=== PATIENT | male | born 1950 | race Caucasian/White ===

== ENCOUNTER 2023-09-23 10:54 | Inpatient (IN) | payer MEDICARE, OTHER, SELFPAY ==
[2023-09-23] VITALS (15 sets, daily range): BP systolic 137–192; BP diastolic 77–98; BMI 26.3
--- NOTE | 2023-09-23 09:30 | ED.GENMED ---
History of Present Illness
General
Chief Complaint: Chest Pain
Source: patient and spouse
Exam Limitations: none
Time Seen by Provider: 09/23/23 09:23
Nursing documentation reviewed up to this point in time: agreed with
Travel History
Have you had any contact with someone who has COVID-19?: No
Do you have any symptoms of coronavirus? Fever > 100 degrees, chills, cough, shortness of breath, sore throat, loss of taste or smell, muscle aches, or headache?: No
History of Present Illness
History of Present Illness:
73-year-old male presents emergency department due to chest pain that began about 6:30 AM. He just drank coffee. He has a history of borderline elevated creatinine. He has never had a heart attack. He does not smoke or drink alcohol. He still
having mild pain. STEMI alert called upon reviewing his EKG.
Past History
Past History
ED Past Medical History: HTN and Other (left ear tinnitus, hyponatremia, Pancreatitis, internal hemorrhoid); Negative CAD or Hypercholesterolemia
ED Past Surgical History: Other (Hernia repair)
Social History
Tobacco: Non-smoker
Alcohol: None
Personal:
Living: with family
Employment: Employed
Family History
Family History: Hypertension; Negative Diabetes, CAD or Sudden
Review of Systems
Review of Systems
Allergies reviewed?: Yes
Constitutional: Reports no symptoms; Denies fever
EENT: Reports no symptoms
Respiratory: Reports no symptoms
Cardiac: Reports chest pain
ABD/GI: Reports no symptoms
: Reports no symptoms
Musculoskeletal: Reports no symptoms
Skin: Reports no symptoms
Neurological: Reports no symptoms
Endocrine: Reports no symptoms
Hematologic/Lymphatic: Reports no symptoms
Psychiatric: Reports no symptoms
Phy Exam
Physical Exam
Physical Exam:
Physical Exam
General: Afebrile
Neck: supple. no meningeal signs. normal posterior pharynx
Heart: s1/s2 regular rate and rhythm, no murmur. equal radial
pulses.
HEENT: Pupils equal round reactive to light, EOMI
Lungs: no acute respiratory distress. clear bilaterally
Abdomen: normal bowel sounds. not tender. no CVAT
Neuro: alert and oriented. no focal neurological deficits cranial nerves II through XII intact
Skin: no rash
Psychiatric: well kept. interactive and cooperative
Extremities: no edema. no calf tenderness. negative homans. good distal pulses
Scores
Heart Score for Chest Pain Patients
STEMI patient?: Yes
Course
Orders/Labs/Results
Orders:
Orders
09/23/23 09:12
Electrocardiogram (*1) Urgent
Reason for Study: Chest Pain
CMP [Comprehensive Metabolic Panel] Urgent
Complete Blood Count/With Diff Urgent
Troponin I Urgent
09/23/23 09:13
EKG- Treatment ONCE
Vital Signs
Initial and Last Documented VS:
Initial Vital Signs
Temp Pulse Resp BP Pulse Ox
97.4 F 49 18 192/88 100
09/23/23 09:07 09/23/23 09:07 09/23/23 09:07 09/23/23 09:07 09/23/23 09:07
Last Documented Vital Signs
Temp Pulse Resp BP Pulse Ox
97.4 F 49 18 192/88 100
09/23/23 09:07 09/23/23 09:07 09/23/23 09:07 09/23/23 09:07 09/23/23 09:07
MDM/Problems Addressed
Differential Diagnosis Includes:
STEMI, scad
MDM/Problems Addressed:
73-year-old male with STEMI. Discussed with Dr. Crain, who accepts patient to [facility] for cardiac catheterization emergently. Aspirin, Brilinta and heparin given.
Chronic conditions affecting care: HTN and Kidney disease
Acute Exacerbation and/or Progression of Chronic Illness: HTN
*Pulse Oximetry
Patient hypoxic: no
*EKG
Interpreted by ED Provider?: Yes
EKG Intrepretation Date: 09/23/23
EKG Intrepretation Time: 09:21
Interpretation: abnormal
Comparison EKG: no comparison EKG present
Heart Rate: 56
Rate: bradycardiac
Rhythm: sinus
[place]: normal axis
Interval: normal interval
QRS Pattern: normal QRS
Ischemia: ST elevation
*Home Appliance Tech Interpretation
Rate: bradycardiac
Interpretation: abnormal
Heart Rate: 57
Rhythm: sinus
*Critical Care Note
Total Time (30-74mins, 75-104mins- exclusive of procedures): Not Applicable
Data Reviewed
Review of Other/Old Records Reveals: Labs
Source: records (Prior creatinine 0.8 on 08/21/2016, 0.9 on 01/01/2018)
Patient Management
Social determinants of health affecting care: Living situation and Strong social support
Discussion with other providers: Reading Intervention Teacher (head boys golf coach Dr. Antony)
Escalation/DeEscalation of care consider admission/obs:
Admit to [facility] indicated emergently
ED Attending Note
-
Portions of this chart may have been created with voice recognition software.� Occasional wrong word or��sound alike� substitutions may have occurred due to the inherent limitations of voice recognition software.
Discharge Plan
Departure
Patient Disposition: VULNERABILITY RESEARCHER
Date of Disposition: 09/23/23
Time of Disposition: 09:30
Admit to: [facility]
Presentation/result/management discussed w/ accepting MD/DO: cardiology Dr. Antony
Patient with high blood pressure during this ER visit?: Yes
Condition: Good
Discharge Problem:
ST elevation (STEMI) myocardial infarction
Prescriptions:
No Action
metoprolol succinate 25 MG tablet extended release 24 hr
25 mg PO DAILY
clonazepam 0.5 MG tablet
0.25 mg PO TIDPRN PRN (Reason: anxiety)
eplerenone 50 MG tablet
50 mg PO DAILY
amlodipine 10 MG tablet
5 mg PO DAILY
--- NOTE | 2023-09-23 09:45 | HPS.HSE ---
Addendum entered and electronically signed by Jarvis Antony MD 09/23/23 17:43:
73 yo with acute inferior STEMI x 2 hrs
HD stable on presentation. No sign of acute CHF
emergent cath and RCA PCI
Routine post [place] care planned
Need to determine cost of Brilinta- if too expensive Plavix should be used instead
Dr Alvarez is outpt lead fire protection engineer
Original Note:
Family Physician
-
Family Physician: Sabine Luu MD
Chief Complaint
-
Inferior STEMI
History of Present Illness
73 yo WM h/o uncontrolled HTN since age [address] Ritter, Hyperaldosteronism, chronic hyponatremia, gout, Anxiety with panic attacks, medical noncompliance who has been having severe fatigue since July, thyroid testing was normal. He
developed acute chest pain around 7:30am today, he thought it was reflux but the pain continued and he presented to ER. His EKG in ER with inferior ST elevations. He was given ASA, Brilinta, Heparin and brought urgently to the lab analyst. He had 6/10
chest pain on arrival to the lab.
Medical History
Past Medical History
Past Medical History: Reports HTN and Psychiatric (Anxiety with panic attacks, Depression)
Additional Past Medical History:
pancreatitis 2015, Lumbar disc disease, gout, Hyperaldosteronism, hyperkalemia, Vitamin D deficiency, thiazide induced Hyponatremia, Liver cyst, L Carotid stenosis, deviated nasal septum, hemorrhoids, anal fissure, trigger finger, Tinnitus
Past Surgical History: Reports Other (hernia repair Right 2003)
Social History
Tobacco: Non-smoker
Alcohol: Occasional
Drug: None
Personal:
Living: With Family
Employment: Employed (Works PT at [employer], previously in [employer])
Family History
Family History: Cancer (Pancreatic, breast)
Allergies / Home Medications
Allergies reflects when Allergies were last updated in [employer].
Home Medications with original date entered in [facility] [facility]
Allergy/Medication List:
Allergies
Allergy/AdvReac Type Severity Reaction Status Date / Time
hydrochlorothiazide Allergy sodium Verified 01/01/18 16:37
depletion
Medication Instructions Recorded Confirmed Type
clonazepam 0.5 mg tablet 0.25 mg PO TIDPRN PRN anxiety 10/20/15 09/23/23 History
furosemide 20 mg tablet (Lasix) 20 mg PO DAILY PRN hyperkalemia 09/23/23 09/23/23 History
magnesium glycinate 100 mg tablet 100 mg PO DAILY 09/23/23 09/23/23 History
spironolactone 25 mg tablet 25 mg PO DAILY 09/23/23 09/23/23 History
Review of Systems
-
A 12 point ROS was completed and negative except as noted: Yes
Cardiac: Reports Chest Pain (12/14)
Physical Exam
Vital Signs
Vital Signs
Temp Pulse Resp BP Pulse Ox
97.4 F 49 18 192/88 100
09/23/23 09:07 09/23/23 09:07 09/23/23 09:07 09/23/23 09:07 09/23/23 09:07
Physical Exam
General: Pain (deferred as being prepped and draped on cath table for urgent procedure)
Impression/Plan
-
IMPRESSION:
Acute inferior STEMI
uncontrolled HTN since age 41, managed by Nephrology
chronic Thiazide induced hyponatremia
Anxiety with panic attacks follow with psychiatry
Depression
Hyperkalemia on spironolactone
Gout
LDD
Hyperaldosteronism
Vitamin D Deficiency
Pancreatitis 2015
ED
history of Medical noncompliance
PLAN:
Admit IVU post cath, PCI occluded distal RCA, and PDA POBA
Radial band per protocol
first troponin neg, serial to peak
Check Echo in am
DAPT ASA/Brilinta (CM to eval cost)
? allergy to BB, HR in 50's currently will hold off for now
white coat syndrome HTN, continue spironolactone and lasix
chronic Hyponatremia Na+ 128, continue to trend, if worsens c/s Nephrology, fluid restrict 48 oz/day
Check CVE, start high intensity statin
Cardiac rehab c/s
f/u DCA at d/c
continue to monitor 48 hours on tele
--- NOTE | 2023-09-23 09:46 | ITS.CL.CATH ---
Ticket Collector Or Usher - Catheterization
Cardiac Catheterization
Procedure Report:
CARDIAC CATHETERIZATION REPORT
Date of Procedure: 09/23/2023
Referring: Dr. Kaykay DO
Indication: Inferior STEMI x 2 hours
HEMODYNAMIC DATA
AO: 168/77
LV: 168/20
LEFT VENTRICULOGRAPHY: Focal area of severe mid inferior hypokinesis with EF 64%
CORONARY ANGIOGRAPHY
Dominance: Right
Left Main: Normal
LAD: 30% mid LAD stenosis with otherwise trivial luminal irregularities in the LAD proper. The LAD wraps the apex to supply a significant portion of the distal inferior wall. The very large first diagonal branch has 30-40% ostial/proximal
stenosis. The small to medium sized second diagonal branch has 80% proximal stenosis. This is a small caliber (1.5) mm vessel
Circumflex: There is a very large ramus intermedius with trivial luminal irregularities. The proximal and mid circumflex have no significant obstructive disease. OM1 is small. The circumflex terminates with two medium sized left posterolateral
branches and there is 40-50% distal circumflex stenosis just proximal to the takeoff of the first of these left posterolateral branches
RCA: Dominant vessel with 20% proximal stenosis and total occlusion in the distal RCA just past the crux. There is JASON grade 0 flow distal to the occlusion site.
Angioplasty: At the conclusion of the diagnostic study we proceeded with RCA intervention. Heparin was used for anticoagulation. Since this patient was not taking any antiplatelet therapy as an outpatient, we treated him with double bolus
Integrilin without infusion. Brilinta 180 mg and aspirin 324 mg were given in the emergency department. A 6 Japanese JR4 guide was advanced to the right coronary ostium. A Hi-Torque floppy was successfully passed through the occlusion in the distal
RCA into the posterolateral branch. This restored flow and we were able to identify the lesion. An attempt to place a 3.0 x 15 Xience SERGIO was unsuccessful as it would not cross the occlusion. The stent was carefully removed and replaced with a
2.5 x 12 trek balloon which was dilated to 8 rylee. This restored normal distal flow. We then placed the 3.0 x 15 Xience SERGIO which was deployed at 14 rylee then postdilated with a 3.0 NC trek to 17 rylee. The angiographic result was outstanding with
scientology of JASON grade III flow into the PDA and posterolateral branch and no residual stenosis at the site of occlusion. A cranially angulated view to lay out the PDA and right posterolateral branch demonstrated high-grade disease in the
midportion of the RPDA. We were unable to advance the Hi-Torque floppy across this lesion. We then passed a hydrophilic whisper wire into the PDA and it appeared that we were able to get through the lesion but not into the distal vessel but rather
into a septal accounts receivable bookkeeper just distal to the lesion site. Numerous passes were made with this wire which continued to select the septal branch of the PDA. We then left the wire in the septal branch of the PDA and advanced a Fielder XT wire which
also preferred the same branch although it was also possible to place this into a more proximal medial branch of the RPDA. This medial branch was certainly not across the entirety of the stenosis and was not an acceptable place to leave the wire
for PTCA. Ultimately, we decided to dilate with a 2.0 x 12 trek balloon hoping that this modified the entry into the distal RPDA. A single balloon inflation was accomplished to 8 rylee. There was angiographic improvement in the appearance of the
stenosis; however, this did not allow us to get the Fielder XT wire nor the whisper wire into the distal RPDA. At this point we opted to terminate the procedure rather than continue to try to get a wire into the distal PDA. There was good distal
flow into the PDA following the angioplasty procedure. Of note, the patient became pain-free once the infarct lesion in the distal RCA was treated.
Closure Device: None-the procedure was performed via the right radial artery. The Irwin's test was normal prior to the procedure.
Radiation (mGy): 160
DAP (cm2.Gy): 18.5
Fluoroscopy time: 7.1 minutes
CONCLUSIONS
1: Evolving inferior STEMI of about 2 hours duration
2: Focal mid inferior hypokinesis with EF 64%
3. Multivessel CAD as described
4. Successful stenting of the culprit distal RCA occlusion using a 3.0 x 15 Xience SERGIO. We performed angioplasty of the mid PDA with some angiographic improvement but no ability to stent the lesion as we were unable to cleanly wire the distal PDA.
5. Recommend dual antiplatelet therapy for 12 months and aggressive risk factor modification efforts
6. Recommend medical treatment for the residual CAD
Copy to: Haseeb Alvarez MD, Sabine Luu MD
Jarvis Antony MD, [facility], [facility]
[2023-09-23 09:48] LABS: % Basophils 0.9 % (0-2); % Eosinophils 3.3 % (0-6); % Immature Granulocytes 0.5 % (0-0.5); % Lymphocytes 25.2 % (20.5-51.1); % Monocytes 11.4 % (1.7-9.3); % Neutrophils 58.7 % (42.2-75.2); Absolute Basophils 0.1 10^3/uL (0-0.2); Absolute Eosinophils 0.2 10^3/uL (0-0.7); Absolute Lymphocytes 1.4 10^3/uL (1.2-3.4); Absolute Monocytes 0.7 10^3/uL (0.1-0.6); Absolute Neutrophils 3.4 10^3/uL (1.4-6.5); Hematocrit 40.5 % (39.0-52.0); Hemoglobin 14.9 g/dL (13.0-18.0); Mean Corp Hgb Conc. 36.8 g/dL (33.0-37.0); Mean Corpuscular Hgb 31.6 pg (27.0-31.0); Mean Corpuscular Volume 85.8 fL (80.0-94.0); Mean Platelet Volume 8.9 fL (7.4-10.4); Nucleated Red Blood Cells % 0 % (-); Platelet Count 162 10^3/uL (130-400); Red Blood Cell Count 4.72 10^6/uL (4.70-6.10); Red Cell Dist. Width 12.5 % (11.5-14.5); White Blood Cell Count 5.7 10^3/uL (4.8-10.8)
[2023-09-23 09:55] LABS: INR 1.07; PT 13.7 Sec (11.4-14.6)
--- NOTE | 2023-09-23 09:56 | PTCARENOTE ---
patient brought to critical room in wheelchair from triage for chest pain that started this AM when patient awoke, approximately 0730 per patient.
EKG done and showed STEMI which read and confirmed by ER doctor. RN Allyson and Ladonna assisted patient at bedside with help from biodiesel processing technician. Teresa and Camila. Aspirin, Brilinta, and heparin given, please refer to yellow STEMI sheet. Patient transferred to
ballistics laboratory gunsmith by this KEYA and Teresa with security and at bedside. Patient was AAOx3 during transfer and handoff to ballistics laboratory gunsmith.
[2023-09-23 09:58] LABS: ACT-LR - POC 271 Seconds (116-155)
[2023-09-23 09:59] LABS: ALT (SGPT) 22 U/L (0-50); AST (SGOT) 30 U/L (17-59); Albumin 4.3 g/dl (3.5-5.0); Alkaline Phosphatase 82 U/L (38-126); Blood Urea Nitrogen 28 mg/dl (9-20); Calcium 9.3 mg/dl (8.4-10.2); Carbon Dioxide 23 mmol/L (22-30); Chloride 98 mmol/L (98-107); Estimated Creatinine Clearance 47 ml/min; Glucose 143 mg/dl (70-99); Potassium 4.6 mmol/L (3.5-5.1); Sodium 128 mmol/L (135-145); Total Bilirubin 0.7 mg/dl (0.2-1.3); Total Protein 6.7 g/dl (6.3-8.2); eGFR > 60.00
[2023-09-23 10:17] LABS: Troponin I < 0.012 ng/ml
[2023-09-23 10:26] LABS: ACT-LR - POC 326 Seconds (116-155)
[2023-09-23] MEDS: NSS 1000 IV (11:55)
--- NOTE | 2023-09-23 13:02 | PTCARENOTE ---
Received pt from recyclable products sorter. Pt w/ a radial R band w/ 17 ml of air initially. senior label specialist RN removed a total of 5ml of air due to pt's hand being dusky. A proximal R band w/ 15 ml of air was placed in the recyclable products sorter due to a hematoma. VSS. Pt w/ +2 left
radial pulse. Pt' left hand purple and dusky. Pulse ox 98% on left finger. Pt w/o discomfort. Will monitor.
--- NOTE | 2023-09-23 13:21 | CM ---
spoke to pt in room, he is prev indep, lives with his laney 3 story home with 1 step to enter. he denies any dc planning needs or dme's. plan is for dc to home when medically stable.
--- NOTE | 2023-09-23 14:47 | CM ---
hamzah grant at pts [facility]- his copay is $47/month. [address] pts red dc folder.
--- NOTE | 2023-09-23 16:00 | W.CON.NEPH ---
Consultation
-
Date/Time Consultation Performed: 09/22 5:01PM
Performing Provider: Liudmila Reynolds
Reason for Consultation: hyponatremia
Medical History
-
Chief Complaint: hyponatremia
History of Present Illness:
Mr. Hernández is a 73YOM with PMH of hypertension, anxiety, obesity, thiazide induced hyponatremia, chronic hyponatremia, gout who presents to the hospital for acute chest pain, found to have an inferior STEMI and brought urgently to the cardiac cath lab technologist.
The patient had PCI to occluded distal RCA and is now admitted to the IVU post cardiac cath.
Reviewing his sodium trends, 134 (2022) <-- 131 (2021). It seems he has always run in the low 130s.Nephrology is consulted today due to a drop in Na to 128. Denies significant changes to water intake. Takes spironolactone and lasix without a
specific regimen. States BP rises with anxiety, otherwise well controlled. has significant white coat hypertension.
Feels significantly improved after cardiac cath.
Per outpatient nephrology note: he developed hyponatremia with chlorthalidone so that has been avoided. Hyponatremia remains persistent, although mild and he has not recieved a thiazide diuretic in quite some time. Daily fluid intake does not exceed
48oz by his report, no obvious factitious component to the hyponatremia was preciously identified. It was thought that spironolactone was impairing renal free water excretion. Most recently, Dr. Ritter did increase his spironolactone to 25mg
daily.
Past Medical History
Anxiety
Depression
HTN (mineralocorticoid component)
chronic hyponatremia
gout
pancreatitis
liver cyst
Past Surgical History: Other (hernia repair 2003)
Social History
Tobacco: Non-Smoker
Alcohol: Occasional
Drug: None
Personal:
Living: With Family
Employment: Employed (works at [employer])
Family History
Family History: Not Pertinent
Allergies / Home Medications
Allergy/AdvReac Type Severity Reaction Status Date / Time
hydrochlorothiazide Allergy sodium Verified 01/01/18 16:37
depletion
Medication Instructions Recorded Confirmed Type
clonazepam 0.5 mg tablet 0.25 mg PO TIDPRN PRN anxiety 10/20/15 09/23/23 History
furosemide 20 mg tablet (Lasix) 20 mg PO DAILY PRN hyperkalemia 09/23/23 09/23/23 History
magnesium glycinate 100 mg tablet 100 mg PO DAILY 09/23/23 09/23/23 History
spironolactone 25 mg tablet 25 mg PO DAILY 09/23/23 09/23/23 History
Review of Systems
-
History Source: Patient and Family
All other systems: Negative unless noted
Constitutional: Fatigue (improved after cath)
Cardiac: Chest Pain (resolved)
Physical Exam
Vital Signs
Vital Signs
Temp Pulse Resp BP Pulse Ox
97.8 F 56 18 151/79 100
09/23/23 15:00 09/23/23 15:00 09/23/23 15:00 09/23/23 12:00 09/23/23 15:00
Lab Results
WBC 5.7 10^3/uL (4.8-10.8) 09/23/23 09:31
RBC 4.72 10^6/uL (4.70-6.10) 09/23/23 09:31
Hgb 14.9 g/dL (13.0-18.0) 09/23/23 09:31
Hct 40.5 % (39.0-52.0) 09/23/23 09:31
Plt Count 162 10^3/uL (130-400) 09/23/23 09:31
Sodium 128 mmol/L (135-145) L 09/23/23 09:31
Potassium 4.6 mmol/L (3.5-5.1) 09/23/23 09:31
Chloride 98 mmol/L (98-107) 09/23/23 09:31
Carbon Dioxide 23 mmol/L (22-30) 09/23/23 09:31
BUN 28 mg/dl (9-20) H 09/23/23 09:31
Creatinine 1.2 mg/dL (0.7-1.3) 09/23/23 09:31
eGFR > 60.00 09/23/23 09:31
Glucose 143 mg/dl (70-99) H 09/23/23 09:31
Calcium 9.3 mg/dl (8.4-10.2) 09/23/23 09:
Albumin 4.3 g/dl (3.5-5.0) 09/23/23 09:
Physical Exam
General: AOx3, No Distress and Nontoxic
HEENT: PERRL, EOMI, Anicteric, Conjunctivae Clear, Ear/Nose Intact, Hearing Normal, Dentition Intact and Neck Supple
Respiratory: Clear
Cardiac: S1/S2, Regular Rate/Rhythm and No Edema
Breast: N/A
Abdomen: Soft, Nontender, Nondistended and Normal Bowel Sounds
Rectal: Deferred by Provider
Musculoskeletal: No Clubbing, No Cyanosis and No Edema
Skin: No Rash
Neuro: Nonfocal/Grossly Intact
Psych: Mood/afflect pleasant and Insight/judgement good
Assessment/Plan
-
Assessment:
STEMI s/p PCI
uncontrolled HTN
acute on chronic hyponatremia
anxiety
depression
Hyperaldo
pancreatitis
Plan:
most likely in the setting of free water excretion impairment, worsened in the acute setting
patient not 100% compliant with spironolactone and lasix but overall endorsing good BP control
has an element of white coat hypertension and very sensitive to anxiety
kidney function stable
obtain Uosm/Natalia
free water restrict to <40oz/day
if Na not >130 by tomorrow, consider SAMSCA vs. lasix pending kidney function after contrast
Data Reviewed
-
Medical Tests (Nuc Med, Echo etc): Image Personally Visualized and interpreted (EKG with ST elevation in inferior leads and then subsequent resolution after cath)
Labs: Labs Reviewed by me and Discussed with Patient
Old Records: Reviewed
[2023-09-23] MEDS: LIPITOR 40 MG PO (18:12)
[2023-09-23] MEDS: LOVENOX SC ×2 (18:25→18:29)
[2023-09-23 18:58] LABS: Osmolality Urine 436 mOsm/kg (300-900)
[2023-09-23 19:06] LABS: Urine Sodium 71 mmol/L (30-90)
[2023-09-23] MEDS: BRILINTA 90 MG PO (19:28)
[2023-09-23] MEDS: TYLENOL 650 MG PO (19:28)
--- NOTE | 2023-09-23 21:33 | PTCARENOTE ---
Pt received at start of shift, HR SB/SR 50s-70s. Reinforced purpose of amiodarone with pt. Discussed plan of care and NPO at 0000. Pt states no questions at this time. Pt denies any CP that's radiating or changing in intensity/feeling, SOB, or
lightheadedness/dizziness at this time. Informed pt to notify RN if any changes, call jackson within reach.
Pt c/o sternum pain 8/10. 5mg Dolores PRN administered.
[2023-09-23] MEDS: KLONOPIN 0.25 MG PO (22:26)
--- NOTE | 2023-09-23 23:29 | PTCARENOTE ---
Pt received at start of shift, HR SB/SR 50s-70s. R radial dressing CDI, no hematoma, site ecchymotic. Pt c/o chest pressure 3 /10, tylenol administered, 2/10 new pain rating. Pt states feeling very anxious, pt noted to be pacing in room. PRN
Klonopin administered. Education provided on what a STEMI is, Lovenox vs Brilinta purposes, troponin, purpose of statin drugs post RI, and modifiable vs. non-modifiable risk factors related to CAD. Pt states no further questions at this time. Pt
denies worsening CP, SOB, or lightheadedness/dizziness at this time. Informed pt to notify RN if any changes, call jackson within reach.
[2023-09-24] VITALS (13 sets, daily range): BP systolic 139–182; BP diastolic 78–101; BMI 25.3
[2023-09-24 04:04] LABS: Hematocrit 37.9 % (39.0-52.0); Mean Corp Hgb Conc. 36.9 g/dL (33.0-37.0); Mean Corpuscular Hgb 31.5 pg (27.0-31.0); Mean Corpuscular Volume 85.4 fL (80.0-94.0); Mean Platelet Volume 8.7 fL (7.4-10.4); Platelet Count 143 10^3/uL (130-400); Red Blood Cell Count 4.44 10^6/uL (4.70-6.10); Red Cell Dist. Width 12.4 % (11.5-14.5); White Blood Cell Count 7.7 10^3/uL (4.8-10.8)
[2023-09-24 04:26] LABS: Blood Urea Nitrogen 28 mg/dl (9-20); Calcium 9.2 mg/dl (8.4-10.2); Carbon Dioxide 21 mmol/L (22-30); Chloride 100 mmol/L (98-107); Estimated Creatinine Clearance 51 ml/min; Glucose 97 mg/dl (70-99); HDL Cholesterol 47 mg/dl; LDL Cholesterol, Calculated 53 mg/dl; Potassium 4.2 mmol/L (3.5-5.1); Sodium 129 mmol/L (135-145); Total Cholesterol 116 mg/dl (50-199); Triglyceride 82 mg/dl (10-149); Very Low Density Lipoprotein 16 mg/dl (0-30); eGFR > 60.00
[2023-09-24] MEDS: BRILINTA 90 MG PO ×2 (07:43→20:21)
[2023-09-24] MEDS: ALDACTONE 25 MG PO (07:43)
[2023-09-24] MEDS: LOW STRENGTH ASPIRIN 81 MG PO (07:43)
--- NOTE | 2023-09-24 08:44 | W.PN.CARDCBS ---
Addendum entered and electronically signed by Savanna Watkins PA-C 09/24/23 16:31:
Patient with increasing HTN. New to Toprol XL 12.5 mg this admission and HRs have been stable. Outpatient dose of spironolactone 25 mg daily has been continued. Cre stable. Nephrology note reviewed and there was consideration for dose of Lasix for
hyponatremia, he also takes Lasix PO PRN as an outpatient, but no doses ordered. Will start lisinopril 5 mg daily now.
Addendum entered and electronically signed by Eros Ricketts MD 09/24/23 12:39:
I saw and examined the patient.
The TECHNICAL TESTING ENGINEER or PA's note was reviewed and I agree with the note.
Comment: General: Well developed, well nourished in NAD.
Neck: Supple, no JVD, HJR, carotids +2 B/L, no bruits bilaterally.
Heart: Non displaced PMI, RRR, no murmurs, No S3, S4, no rubs.
Lungs: Clear to auscultation bilaterally, no wheeze, rhonchi, rubs bilaterally,
normal expiratory phase.
Extremities: No clubbing, cyanosis or edema bilaterally.
Neuro: Grossly nonfocal, awake, alert and oriented x3.
Stable cardiology status status post [place]. Check echocardiogram. Start low-dose Toprol with ventricular ectopy. Check on cost of Brilinta. Probable discharge 09/24 AM
Original Note:
Today's Communication / Plan
-
Echo
cardiac rehab
CM eval brilinta cost
start toprol xl 12.5 daily
Impression / Plan
-
PCP: Yesenia Luu MD
CDY: Daryl Alvarez MD
73 y/o, h/o uncontrolled HTN since age [address] Ritter, hyperaldosteronism, chronic hyponatremia, gout, anxiety with panic attacks, medical noncompliance who has been having severe fatigue since July, thyroid testing was normal. He
developed acute chest pain around 7:30am today, he thought it was reflux but the pain continued and he presented to ER. His EKG in ER with inferior ST elevations. He was given ASA, Brilinta, Heparin and brought urgently to the [employer] [employer]. He had 6
chest pain on arrival to the lab.
LHC: Distal RCA total occlusion, s/p distal RCA PCI with PDA POBA
LVGram- focal area of severe mid inferior hypokinesis with EF 64%
residual CAD- 30% mid LAD, 30-40% ostial/prox D1, 80% prox D2, 40-50% distal LCx
IMPRESSION:
Acute inferior STEMI
uncontrolled HTN since age 41, managed by Nephrology
chronic Thiazide induced hyponatremia
Anxiety with panic attacks follow with psychiatry
Depression
Hyperkalemia on spironolactone
Gout
LDD
Hyperaldosteronism
Vitamin D Deficiency
Pancreatitis 2014
ED
history of Medical noncompliance
PLAN:
Distal RCA PCI w/PDA POBA
Tele- SB/NSR w/3-4bt NSVT, occasional PVCs
Peak troponin 42.5
Echo today
DAPT w/asa, brilinta- cost check per CM
? allergy to BB- he is unsure but thought it was dizziness in his head. HR was 50s on arrival to ER/[facility] [employer] [facility]
HR now up to 70s w/some NSVT noted- start low dose toprol 12.5/d and monitor- BP is modestly elevated and could tolerate
white coat syndrome HTN, continue spironolactone
Appreciate Nephrology consult re: hyponatremia, HTN- Na+ 129 today- fluid restrict <40oz/day, possible samsca v. lasix per neph- hold off on candice/arb for now
Lipid profile noted- new start atorvastatin 40/d
Cardiac rehab today
Followup at [facility] at d/c
continue to monitor 48 hours on tele
Importance of uninterrupted DAPT post STEMI/Stenting discussed with patient
Progress Note - Slurry Tank Tender
Subjective
Date of Service: September 24, 2023
Denies cp/palps/dyspnea
oob ambulating
radial cath site without pain
Objective
Labs:
09/24/23 03:56
09/24/23 03:56
Labs
Hgb 14.0 g/dL (13.0-18.0) 09/24/23 03:56
Hct 37.9 % (39.0-52.0) L 09/24/23 03:56
Plt Count 143 10^3/uL (130-400) 09/24/23 03:56
PT 13.7 Sec (11.4-14.6) 09/23/23 09:33
INR 1.07 09/23/23 09:33
Sodium 129 mmol/L (135-145) L 09/24/23 03:56
Potassium 4.2 mmol/L (3.5-5.1) 09/24/23 03:56
BUN 28 mg/dl (9-20) H 09/24/23 03:56
Creatinine 1.1 mg/dL (0.7-1.3) 09/24/23 03:56
Glucose 97 mg/dl (70-99) 09/24/23 03:56
Troponins
09/23/23 09/23/23 09/23/23
09:31 16:24 22:42
Troponin I < 0.012 20.000 H* D 42.500 H* D
09/24/23
03:56
Troponin I 28.500 H* D
Vital Signs and I&O:
Vital Signs
Temp Pulse Resp BP Pulse Ox
97.9 F 75 20 157/95 99
09/24/23 06:59 09/24/23 07:45 09/24/23 06:59 09/24/23 07:02 09/24/23 07:53
Vital Signs
Temp Pulse Resp BP Pulse Ox
97.9 F 75 20 157/95 99
09/24/23 06:59 09/24/23 07:45 09/24/23 06:59 09/24/23 07:02 09/24/23 07:53
Intake & Output
09/22/23 09/23/23 09/24/23 09/25/23
06:59 06:59 06:59 06:59
Intake Total 1760 / 1760
Output Total 750 / 750
Balance 1010 / 1010
Physical Exam
Physical Exam
AAOx3, MAEE 5/5
RRR S1 S2 no murmurs
CTA bilat, non labored
soft abd, + bs
right radial cath site without ht/bleeding, non tender
bilat extremities w/palpable distal pulses, no edema
[2023-09-24 09:49] LABS: Glycohemoglobin (HgbA1c) 5.4 % (4.0-5.6)
[2023-09-24] MEDS: TOPROL XL 12.5 MG PO (10:41)
--- NOTE | 2023-09-24 12:00 | CM ---
CM following for DC planning needs.
Met w/ patient at bedside. Reviewed cost of Brilinta; free 30 d coupon placed in chart-this was relayed to pt.
Anticipated DC plan is for home, no needs.
Will follow.
--- NOTE | 2023-09-24 12:47 | W.PN.NEPH.PH ---
Today's Communication / Plan
-
see plan
Assessment/Plan
-
Assessment:
STEMI s/p PCI
uncontrolled HTN
acute on chronic hyponatremia
anxiety
depression
Hyperaldo
pancreatitis
Plan:
most likely in the setting of free water excretion impairment, worsened in the acute setting
patient not 100% compliant with spironolactone and lasix but overall endorsing good BP control
has an element of white coat hypertension and very sensitive to anxiety
kidney function stable post contrast 09/22
U osmo is high 436, U na normal 71
free water restrict to ~40oz/day
recheck sodium later if decreasing try samsca
cont Aldactone for now
BB per cards
-
-
Date of Service: September 24, 2023
CC / HPI / ROS
-
Chief Complaint:
Hypoantremia
History of Present Illness:
sodium slightly better at 129
BP high, BB added per cards
trop high, pending echo
cr 1.1, non oliguric
Review of Systems:
no cp or sob at rest
feels well today
Labs
-
Labs:
WBC 7.7 10^3/uL (4.8-10.8) 09/24/23 03:56
RBC 4.44 10^6/uL (4.70-6.10) L 09/24/23 03:56
Hgb 14.0 g/dL (13.0-18.0) 09/24/23 03:56
Hct 37.9 % (39.0-52.0) L 09/24/23 03:56
Plt Count 143 10^3/uL (130-400) 09/24/23 03:56
Sodium 129 mmol/L (135-145) L 09/24/23 03:56
Potassium 4.2 mmol/L (3.5-5.1) 09/24/23 03:56
Chloride 100 mmol/L (98-107) 09/24/23 03:56
Carbon Dioxide 21 mmol/L (22-30) L 09/24/23 03:56
BUN 28 mg/dl (9-20) H 09/24/23 03:56
Creatinine 1.1 mg/dL (0.7-1.3) 09/24/23 03:56
eGFR > 60.00 09/24/23 03:56
Glucose 97 mg/dl (70-99) 09/24/23 03:56
Calcium 9.2 mg/dl (8.4-10.2) 09/24/23 03:56
Albumin 4.3 g/dl (3.5-5.0) 09/23/23 09:31
Physical Exam
-
Vital Signs:
Vital Signs
Temp Pulse Resp BP Pulse Ox
97.8 F 59 18 170/84 99
09/24/23 12:03 09/24/23 12:00 09/24/23 12:03 09/24/23 11:59 09/24/23 07:53
Cardiovascular:: Regular rate and rhythm
Respiratory:: Bilateral: CTA
Lung Excursion:: Normal
Abdomen:: Nontender and Soft
Extremity Edema:: None: Bilateral:
Kruger Catheter: No
[2023-09-24] MEDS: KLONOPIN 0.25 MG PO ×2 (16:16→20:24)
[2023-09-24] MEDS: ZESTRIL 5 MG PO (16:42)
[2023-09-24] MEDS: LOVENOX 40 MG SC (18:22)
[2023-09-24] MEDS: LIPITOR 40 MG PO (18:22)
--- NOTE | 2023-09-24 18:37 | PTCARENOTE ---
Pt denies any discomfort, up walking in halls. Telemetry shows sinus rhythm with 5 beat run NSVT. SBP's @170, notified, pt given lisinopril and klonopin for anxiety. Brief improvement to 157/84. Pt with history of uncontrolled HTN for >
30 years.
--- NOTE | 2023-09-24 20:41 | PTCARENOTE ---
Assumed care. patient walking in halls with . Denies chest pain. He appears anxious. Brilinta and Klonopin given, BP 153/96. SR/SB HR 50-60's on telemetry. Call jackson in reach
[2023-09-25 04:12] VITALS: BP 140/74
[2023-09-25 04:33] LABS: Hematocrit 38.5 % (39.0-52.0); Hemoglobin 13.7 g/dL (13.0-18.0); Mean Corp Hgb Conc. 35.6 g/dL (33.0-37.0); Mean Corpuscular Hgb 31.3 pg (27.0-31.0); Mean Corpuscular Volume 87.9 fL (80.0-94.0); Mean Platelet Volume 8.9 fL (7.4-10.4); Platelet Count 146 10^3/uL (130-400); Red Blood Cell Count 4.38 10^6/uL (4.70-6.10); Red Cell Dist. Width 12.4 % (11.5-14.5); White Blood Cell Count 6.3 10^3/uL (4.8-10.8)
[2023-09-25 04:59] LABS: Blood Urea Nitrogen 29 mg/dl (9-20); Calcium 8.9 mg/dl (8.4-10.2); Carbon Dioxide 20 mmol/L (22-30); Chloride 101 mmol/L (98-107); Estimated Creatinine Clearance 47 ml/min; Glucose 83 mg/dl (70-99); Potassium 4.6 mmol/L (3.5-5.1); Sodium 126 mmol/L (135-145); eGFR > 60.00
[2023-09-25 07:36] VITALS: BP 135/82
--- NOTE | 2023-09-25 08:19 | W.PN.CARDCBS ---
Addendum entered and electronically signed by Dwight Forte MD 09/25/23 12:48:
I saw and examined the patient.
The Payroll And Benefits Analyst's note was reviewed and I agree with the note.
Comment:
GEN: No distress, awake, Ox3
HEENT: supple, anicteric, mmm
LUNGS: CTA, no wheezes/rales
CV: Reg, S1/S2, 1/6 syst LSB, no gallop
ABD: soft, BS+, NT/ND
EXT: No edema
NEURO: Gross non-focal
SKIN: No rash
Plan:
Doing well post [place].
Continue aspirin, Brilinta, Toprol, lisinopril, and Aldactone.
Will need to watch for bradycardia.
Appreciate nephrology input regarding hyponatremia. Will need repeat labs upon discharge.
Cardiac rehab
Original Note:
Today's Communication / Plan
-
continue post [place] care
DAPT, statin, BB, ACEi
Na down 126 but chronic, await Nephrology input
stable for d/c home later today
Impression / Plan
-
PCP: Yesenia Luu MD
CDY: Daryl Alvarez MD
73 y/o, h/o uncontrolled HTN since age [address] Ritter, hyperaldosteronism, chronic hyponatremia, gout, anxiety with panic attacks, medical noncompliance who has been having severe fatigue since July, thyroid testing was normal. He
developed acute chest pain around 7:30am today, he thought it was reflux but the pain continued and he presented to ER. His EKG in ER with inferior ST elevations. He was given ASA, Brilinta, Heparin and brought urgently to the [facility]. He had 6/10
chest pain on arrival to the lab.
LHC: Distal RCA total occlusion, s/p distal RCA PCI with PDA POBA
LVGram- focal area of severe mid inferior hypokinesis with EF 64%
residual CAD- 30% mid LAD, 30-40% ostial/prox D1, 80% prox D2, 40-50% distal LCx
IMPRESSION:
Acute inferior STEMI
uncontrolled HTN since age 41, managed by Nephrology
chronic Thiazide induced hyponatremia
Anxiety with panic attacks follow with psychiatry
Depression
Hyperkalemia on spironolactone
Gout
LDD
Hyperaldosteronism
Vitamin D Deficiency
Pancreatitis 2014
ED
history of Medical noncompliance
PLAN:
Distal RCA PCI w/PDA POBA
Tele- SB/NSR no further ectopy
Peak troponin 42.5
Echo EF 50-55%, mild AR
DAPT w/asa, brilinta
? allergy to BB- he is unsure but thought it was dizziness in his head. HR was 50s on arrival to ER/[facility] [employer]
HR now up to 70s w/some NSVT noted- start low dose toprol 12.5/d and monitor, HR 50-60's so far feels ok,
white coat syndrome HTN, continue spironolactone, will add lisinopril 5mg for continued elevated BPs
Appreciate Nephrology consult re: hyponatremia, HTN- Na+ 126 today- fluid restrict <40oz/day, possible samsca per neph
Lipid profile noted- new start atorvastatin 40/d
A1c 5.4
Cardiac rehab today
Followup at [facility] at d/c
oob ambulating, no cp
Importance of uninterrupted DAPT post STEMI/Stenting discussed with patient
Pt's psychiatrist retired, recommended f/u PCP for clonazepam and find another psychiatrist for his continued anxitey
plan for d/c home later today after input from nephrology
Progress Note - Hitch Technician
Subjective
Date of Service: September 25, 2023
no cp, sob
Objective
Labs:
09/25/23 04:22
09/25/23 04:22
Labs
Hgb 13.7 g/dL (13.0-18.0) 09/25/23 04:22
Hct 38.5 % (39.0-52.0) L 09/25/23 04:22
Plt Count 146 10^3/uL (130-400) 09/25/23 04:22
PT 13.7 Sec (11.4-14.6) 09/23/23 09:33
INR 1.07 09/23/23 09:33
Sodium 126 mmol/L (135-145) L 09/25/23 04:22
Potassium 4.6 mmol/L (3.5-5.1) 09/25/23 04:22
BUN 29 mg/dl (9-20) H 09/25/23 04:22
Creatinine 1.2 mg/dL (0.7-1.3) 09/25/23 04:22
Glucose 83 mg/dl (70-99) 09/25/23 04:22
Troponins
09/23/23 09/23/23 09/23/23
09:31 16:24 22:42
Troponin I < 0.012 20.000 H* D 42.500 H* D
09/24/23
03:56
Troponin I 28.500 H* D
Vital Signs and I&O:
Vital Signs
Temp Pulse Resp BP Pulse Ox
98.5 F 61 20 140/74 97
09/25/23 07:34 09/25/23 04:12 09/25/23 07:34 09/25/23 04:12 09/25/23 07:34
Vital Signs
Temp Pulse Resp BP Pulse Ox
98.5 F 61 20 140/74 97
09/25/23 07:34 09/25/23 04:12 09/25/23 07:34 09/25/23 04:12 09/25/23 07:34
Intake & Output
03/09/24/23 09/25/23 09/26/23
06:59 06:59 06:59 06:59
Intake Total 1760 / 1760 180 / 180
Output Total 750 / 750
Balance 1010 / 1010 180 / 180
Physical Exam
Physical Exam
NAD< AOX3
S1, S2, RRR
CTAB, non labored
SNTND Bsx4
R Rad site mild ecchymosis, good pulse
[2023-09-25] MEDS: LOW STRENGTH ASPIRIN 81 MG PO (09:43)
[2023-09-25] MEDS: ZESTRIL 5 MG PO (09:43)
[2023-09-25] MEDS: BRILINTA 90 MG PO (09:43)
[2023-09-25] MEDS: SAMSCA 7.5 MG PO (09:43)
[2023-09-25] MEDS: TOPROL XL 12.5 MG PO (09:43)
[2023-09-25] MEDS: ALDACTONE 25 MG PO (09:43)
--- NOTE | 2023-09-25 10:55 | CM ---
CM following for DC planning needs.
Pt. for DC to home today. Met w/ patient at bedside.
Patient identifies no concerns or needs at this time.
Plan is home no needs.
--- NOTE | 2023-09-25 11:37 | W.PN.NEPH.PH ---
Addendum entered and electronically signed by Jenni Myles MD 09/25/23 11:44:
would need close monitoring of potassium while on both Aldactone and ACEI
resume lasix as before
Original Note:
Today's Communication / Plan
-
s/p samsca this am
BMP tomorrow vs Friday if d/c
cont FR 48 ounce/day
Assessment/Plan
-
Assessment:
STEMI s/p PCI
uncontrolled HTN
acute on chronic hyponatremia
anxiety
depression
Hyperaldo
pancreatitis
Plan:
Hyponatremia acute on chronic
most likely in the setting of free water excretion impairment, worsened in the acute setting
patient not 100% compliant with spironolactone and lasix but overall endorsing good BP control
has an element of white coat hypertension and very sensitive to anxiety
kidney function stable post contrast 09/22, cr 1.2
U osmo is high 436, U na normal 71
cont free water restrict to ~48oz/day at d/c
since sodium low today, will dose samsca
if d/c today, check BMP out pt tomorrow vs Friday
cont Aldactone for now
BB and ACEI added per cards
f/u Dr Ritter
d/w pt and at bedside
d/w nursing
-
-
Date of Service: September 25, 2023
CC / HPI / ROS
-
Chief Complaint:
Hypoantremia
History of Present Illness:
sodium low at 126
BP improving with addition of BB and ACEI
normal EF on echo
cr 1.2,
Review of Systems:
no cp or sob at rest
plan d/c today
Labs
-
Labs:
WBC 6.3 10^3/uL (4.8-10.8) 09/25/23 04:22
RBC 4.38 10^6/uL (4.70-6.10) L 09/25/23 04:22
Hgb 13.7 g/dL (13.0-18.0) 09/25/23 04:22
Hct 38.5 % (39.0-52.0) L 09/25/23 04:22
Plt Count 146 10^3/uL (130-400) 09/25/23 04:22
Sodium 126 mmol/L (135-145) L 09/25/23 04:22
Potassium 4.6 mmol/L (3.5-5.1) 09/25/23 04:22
Chloride 101 mmol/L (98-107) 09/25/23 04:22
Carbon Dioxide 20 mmol/L (22-30) L 09/25/23 04:22
BUN 29 mg/dl (9-20) H 09/25/23 04:22
Creatinine 1.2 mg/dL (0.7-1.3) 09/25/23 04:22
eGFR > 60.00 09/25/23 04:22
Glucose 83 mg/dl (70-99) 09/25/23 04:22
Calcium 8.9 mg/dl (8.4-10.2) 09/25/23 04:22
Albumin 4.3 g/dl (3.5-5.0) 09/23/23 09:31
Physical Exam
-
Vital Signs:
Vital Signs
Temp Pulse Resp BP Pulse Ox
98.5 F 59 20 135/82 97
09/25/23 07:34 09/25/23 09:30 09/25/23 07:34 09/25/23 07:36 09/25/23 09:38
Cardiovascular:: Regular rate and rhythm
Respiratory:: Bilateral: CTA
Lung Excursion:: Normal
Abdomen:: Nontender and Soft
Extremity Edema:: None: Bilateral:
Kruger Catheter: No
[2023-09-25 12:07] VITALS: BP 138/77
--- NOTE | 2023-09-25 14:31 | W.DS.TRANS ---
DC Summary - Disc Recordist
-
Discharge Instructions:
Discharge Diagnosis/Procedures STEMI, Angioplasty with stent to RCA and balloon
angioplasty to PDA
Diet Low Cholesterol
Driving Restrictions No driving for 24 hours
Blood Work Check BMP on Thursday 09/28
Other Services Cardiac Rehab
Instructions:
Stand-Alone Forms: DC Instructions- Cath/EP Lab
Changes to Home Medications: Yes
Discharge Medications:
DC Medications w/original date entered in [facility]
clonazepam 0.5 mg tablet 0.25 mg PO TIDPRN PRN anxiety 10/20/15
furosemide 20 mg tablet (Lasix) 20 mg PO DAILY PRN hyperkalemia 09/23/23
magnesium glycinate 100 mg tablet 100 mg PO DAILY 09/23/23
spironolactone 25 mg tablet 25 mg PO DAILY 09/23/23
aspirin 81 mg chewable tablet (Children's Aspirin) 81 mg PO DAILY #1 tab 09/25/23
atorvastatin 40 mg tablet 40 mg PO QPM #30 tabs 09/25/23
lisinopril 5 mg tablet 5 mg PO DAILY #30 tabs 09/25/23
metoprolol succinate 25 mg tablet,extended release 24 hr 12.5 mg PO DAILY #30 tabs 09/25/23
ticagrelor 90 mg tablet (Brilinta) 90 mg PO BID #60 tabs 09/25/23
Home Medication Changes
new to brilinta, toprol, lisinopril, atorvastatin, asa
Pending Results: No
--- NOTE | 2023-09-25 15:03 | PTCARENOTE ---
Pt seen by and Nita Edward NP. Pt denies any discomfort, samsca given for low sodium of 129, pt will have BMP on 09/28. Telemetry and IV device removed. Discharge instructions reviewed with pt regarding medications and their possible side
effects, wound care, activity guidelines, reporting cares and concerns and follow up appointments. Very good understanding verbalized. Pt escorted out via wheelchair and discharged to home.
[2023-09-25 19:25] LABS: Hepatitis C Antibody Negative (Negative)
== END 2023-09-25 14:55 | disposition home or self-care (01) | DRG 322 ==
LOC: IVU 10:54
PROVIDERS: Emergency Medicine; Internal Medicine Cardiovascular Disease; Nurse Practitioner Adult Health; ADMITTING PHYSICIAN Internal Medicine Interventional Cardiology; EMERGENCY PHYSICIAN Emergency Medicine; OTHER PHYSICIAN Student in an Organized Health Care Education/Training Program
PROC: 027034Z Dilation of Coronary Artery, One Artery with Drug-eluting Intraluminal Device, Percutaneous Approach (ICD-10-PCS; 2023-09-23)
PROC: B2111ZZ Fluoroscopy of Multiple Coronary Arteries using Low Osmolar Contrast (ICD-10-PCS; 2023-09-23)
PROC: B2151ZZ Fluoroscopy of Left Heart using Low Osmolar Contrast (ICD-10-PCS; 2023-09-23)
PROC: 4A023N7 Measurement of Cardiac Sampling and Pressure, Left Heart, Percutaneous Approach (ICD-10-PCS; 2023-09-23)
DX: I21.19 ST elevation (STEMI) myocardial infarction involving other coronary artery of inferior wall (principal); E87.1 Hypo-osmolality and hyponatremia; I10 Essential (primary) hypertension; T50.2X5A Adverse effect of carbonic-anhydrase inhibitors, benzothiadiazides and other diuretics, initial encounter; F41.0 Panic disorder [episodic paroxysmal anxiety]; F32.A Depression, unspecified; E87.5 Hyperkalemia; M10.9 Gout, unspecified; E26.9 Hyperaldosteronism, unspecified; E55.9 Vitamin D deficiency, unspecified; I25.10 Atherosclerotic heart disease of native coronary artery without angina pectoris; Z91.199 Patient's noncompliance with other medical treatment and regimen due to unspecified reason
CPT/HCPCS: 80048; 80053; 80061; 83036; 83935; 84300; 84484; 85025; 85027; 85347; 85610; 86803; 92921; 93005; 93306; 93458; 99285; C1725; C1769; C1874; C9606; J1327; Q9967

== ENCOUNTER 2023-10-13 18:26 | Inpatient (IN) | payer MEDICARE, OTHER, SELFPAY ==
[2023-10-13] VITALS (12 sets, daily range): BP systolic 131–170; BP diastolic 75–97; PULSE 68–74; BMI 24.3; BMI 23.8
[2023-10-13 14:28] LABS: % Basophils 0.8 % (0-2); % Eosinophils 1.1 % (0-6); % Immature Granulocytes 0.8 % (0-0.5); % Lymphocytes 11.9 % (20.5-51.1); % Monocytes 10.9 % (1.7-9.3); % Neutrophils 74.5 % (42.2-75.2); Absolute Eosinophils 0.1 10^3/uL (0-0.7); Absolute Lymphocytes 0.6 10^3/uL (1.2-3.4); Absolute Monocytes 0.6 10^3/uL (0.1-0.6); Absolute Neutrophils 3.9 10^3/uL (1.4-6.5); Hematocrit 38.4 % (39.0-52.0); Hemoglobin 14.2 g/dL (13.0-18.0); Mean Corpuscular Hgb 32.1 pg (27.0-31.0); Mean Corpuscular Volume 86.7 fL (80.0-94.0); Mean Platelet Volume 8.9 fL (7.4-10.4); Nucleated Red Blood Cells % 0 % (-); Platelet Count 159 10^3/uL (130-400); Red Blood Cell Count 4.43 10^6/uL (4.70-6.10); Red Cell Dist. Width 12.5 % (11.5-14.5); White Blood Cell Count 5.2 10^3/uL (4.8-10.8)
[2023-10-13 14:42] LABS: ALT (SGPT) 30 U/L (0-50); AST (SGOT) 37 U/L (17-59); Albumin 4.4 g/dl (3.5-5.0); Alkaline Phosphatase 79 U/L (38-126); Blood Urea Nitrogen 35 mg/dl (9-20); Calcium 9.5 mg/dl (8.4-10.2); Carbon Dioxide 20 mmol/L (22-30); Chloride 90 mmol/L (98-107); Glucose 103 mg/dl (70-99); Potassium 4.5 mmol/L (3.5-5.1); Sodium 121 mmol/L (135-145); Total Protein 6.8 g/dl (6.3-8.2)
[2023-10-13 14:53] LABS: Troponin I 0.015 ng/ml
--- NOTE | 2023-10-13 15:50 | ED.GENMED ---
History of Present Illness
General
Chief Complaint: Fainting Sensation
Source: patient and spouse
Exam Limitations: none
Time Seen by Provider: 10/13/23 15:50
Nursing documentation reviewed up to this point in time: agreed with
Travel History
Have you had any contact with someone who has COVID-19?: No
Do you have any symptoms of coronavirus? Fever > 100 degrees, chills, cough, shortness of breath, sore throat, loss of taste or smell, muscle aches, or headache?: No
History of Present Illness
History of Present Illness:
73-year-old male with history of CAD, HTN, hyponatremia, anxiety CO 3 weeks ago, presents for reported syncopal episode at his cardiology office where he was for f/u for his CO. Arrives via wheelchair from Cardiology office in [place].
Pt states he was sitting listening to QC SCIENTIST Danielle Coleman when he became a little dizzy, vision a little blurry, pale and QC SCIENTIST said he was staring w blank look. He felt like he would faint but QC SCIENTIST kept him engaged and someone brought him water which he
drank and felt better. He had an egg, vegetables and small amount of mackerel at 10 a.m.
Expresses confusion about what he is allowed to eat since his CO, has been extremely anxious and has not been eating much as he doesn't know what to eat. He as lost 8 lbs in past 3 weeks.
He admits to feeling very anxious since his CO.
Denies chest pain, SOB, since CO, has abdominal discomfort, has been constipated and taking Miralax and occasional Fleets enema, had good BM yesterday, denies abdominal pain at this time.
Past History
Past History
ED Past Medical History: HTN and Other (left ear tinnitus, hyponatremia, Pancreatitis, internal hemorrhoid); Negative CAD or Hypercholesterolemia
ED Past Surgical History: Other (Hernia repair)
Social History
Tobacco: Non-smoker
Alcohol: None
Personal:
Living: with family
Employment: Employed
Family History
Family History: Hypertension; Negative Diabetes, CAD or Sudden
Review of Systems
Review of Systems
Allergies reviewed?: Yes
All Other Systems: ROS reviewed and negative except as documented in HPI and ROS
Constitutional: Denies fever or fatigue
Respiratory: Denies trouble breathing
Cardiac: Denies chest pain, diaphoresis, palpitations or syncope (Near syncope)
ABD/GI: Reports constipated and anorexia; Denies abdominal pain, nausea, vomiting, diarrhea, bloody stools or black stools
: Denies dysuria, frequency, difficulty voiding or urgency
Musculoskeletal: Reports no symptoms
Skin: Reports no symptoms
Neurological: Denies headache, weakness or numbness
Phy Exam
Physical Exam
Physical Exam:
GENERAL: No acute distress. A&Ox3.
CONSTITUTIONAL: Afebrile.
EYES: PERRL, conjunctivae normal
Neck: Supple
ENMT: moist mucus membranes, Pharynx nl
RESPIRATORY: Regular respirations, nonlabored, lungs clear.
CARDIOVASCULAR: Regular rate and rhythm, no murmurs, no rubs.
GI: Soft, nontender, normal BS
MUSCULOSKELETAL: Moves with ease. Well perfused.
SKIN: Warm, dry, pink
PSYCH: Normal mood and affect. Well kept, interactive and appropriate
NEUROLOGIC: Awake, alert and oriented. No focal neurological deficits
Course
Orders/Labs/Results
Orders:
Orders
10/13/23 13:44
Electrocardiogram (*1) Urgent
Reason for Study: Chest Pain
EKG- Treatment ONCE
10/13/23 13:57
Complete Blood Count/With Diff Urgent
Comprehensive Metabolic Panel Urgent
Serum Osmolality Urgent
Comment: ADD ON
Troponin I Urgent
10/13/23 16:11
Orthostatic VS- Treatment ONCE
10/13/23 16:12
0.9% Sodium Chloride 1000 ml [Nss] 1,000 ml IV BOLUS
10/13/23 16:51
Clonazepam [Klonopin] 0.125 mg PO NOW STA
10/13/23 17:00
Add On- LAB Urgent
Tests Added?: serum osmolality
10/13/23 17:01
Osmolality, Random Urine Urgent
Urine Sodium Urgent
Abnormal Lab Results
10/13/23
13:57
RBC 4.43 L 10^6/uL
(4.70-6.10)
Hct 38.4 L %
(39.0-52.0)
MCH 32.1 H pg
(27.0-31.0)
Absolute Lymphs (auto) 0.6 L 10^3/uL
(1.2-3.4)
Immature Gran % 0.8 H %
(0-0.5)
Lymphocytes % 11.9 L %
(20.5-51.1)
Monocytes % 10.9 H %
(1.7-9.3)
Sodium 121 L mmol/L
(135-145)
Chloride 90 L mmol/L
(98-107)
Carbon Dioxide 20 L mmol/L
(22-30)
BUN 35 H mg/dl
(9-20)
Creatinine 1.4 H mg/dL
(0.7-1.3)
Glucose 103 H mg/dl
(70-99)
10/13/23 13:57
10/13/23 13:57
Vital Signs
Initial and Last Documented VS:
Initial Vital Signs
Temp Pulse Resp BP Pulse Ox
97.6 F 74 18 131/75 98
10/13/23 13:43 10/13/23 13:43 10/13/23 13:43 10/13/23 13:43 10/13/23 13:43
Last Documented Vital Signs
Temp Pulse Resp BP Pulse Ox
97.6 F 63 18 162/83 100
10/13/23 13:43 10/13/23 16:40 10/13/23 16:40 10/13/23 16:40 10/13/23 16:40
MDM/Problems Addressed
Differential Diagnosis Includes:
side effect of new medication(s), dehydration
MDM/Problems Addressed:
73-year-old male with history of CAD, HTN, hyponatremia and hyperkalemia followed by Nephrology Dr. Ritter, anxiety CO 3 weeks ago, presents for reported syncopal episode at his cardiology office where he was for f/u for his CO. Arrives via
wheelchair from Cardiology office in [place].
Pt states he was sitting listening to QC SCIENTIST Danielle Coleman when he became a little dizzy, vision a little blurry, pale and QC SCIENTIST said he was staring w blank look. He felt like he would faint but QC SCIENTIST kept him engaged and someone brought him water which he
drank and felt better. He had an egg, vegetables and small amount of mackerel at 10 a.m.
Expresses confusion about what he is allowed to eat since his CO, has been extremely anxious and has not been eating much as he doesn't know what to eat. He as lost 8 lbs in past 3 weeks.
He admits to feeling very anxious since his CO.
Denies chest pain, SOB, since CO, has abdominal discomfort, has been constipated and taking Miralax and occasional Fleets enema, had good BM yesterday, denies abdominal pain at this time.
Prior to 3 weeks ago was only on Spironolactone and Clonazepam 0.25 HS Prn
All his new meds have been updated today by pharmacy
4:30 PM
CBC with no clinically significant abnormality
CMP: Sodium 121, he is chronically hyponatremic but this is the lowest I see in his records, the lowest previous this was 126.
BUN/Creat 35/4.1
Orthostatics negative
Urine sodium and osmolality pending, serum osmolality pending
Plan: Admit: Acute hyponatremia, dehydration
Hospitalist notified of admission
Pt and informed of plan. Pt requesting Clonazepam 0.125 mg as is ordered for him prn
*Critical Care Note
Total Time (30-74mins, 75-104mins- exclusive of procedures): Not Applicable
ED Attending Note
-
Portions of this chart may have been created with voice recognition software.� Occasional wrong word or��sound alike� substitutions may have occurred due to the inherent limitations of voice recognition software.
Discharge Plan
Departure
Patient Disposition: Admit
Date of Disposition: 10/13/23
Time of Disposition: 16:41
Presentation/result/management discussed w/ accepting MD/DO: Hospitalist
Condition: Fair
Discharge Problem:
Acute hyponatremia, Acute dehydration
Prescriptions:
No Action
clonazepam 0.5 MG tablet
0.125 mg PO HSPRN PRN (Reason: anxiety)
spironolactone 25 mg Tablet
25 mg PO DAILY
magnesium glycinate 100 mg Tablet
100 mg PO DAILY
Brilinta 90 mg Tablet
90 mg PO BID Qty: 60 5RF
atorvastatin 40 mg Tablet
40 mg PO QPM Qty: 30 5RF
aspirin [Children's Aspirin] 81 mg Tablet,Chewable
81 mg PO DAILY Qty: 1 0RF
lisinopril 5 mg Tablet
5 mg PO DAILY Qty: 30 5RF
metoprolol succinate 25 mg Tablet Extended Release 24 Hr
12.5 mg PO DAILY Qty: 30 5RF
polyethylene glycol 3350 [Miralax] 17 gram Powder In Packet
17 g PO DAILY PRN (Reason: constipation)
Referrals:
NONE,* [Active] -
Interventions
Interventions:
*Risk Screen - Suicide Last Done: 10/13/23 16:40
*General Assessment Last Done: 10/13/23 16:40
*Neglect/Abuse Screening Last Done: 10/13/23 16:40
ED- Fall Risk Assessment Last Done: 10/13/23 16:40
*ED COVID-19 Vaccine History Last Done: 10/13/23 16:40
ED- Cardiac Assessment Last Done: 10/13/23 16:45
ED- Neurological Assessment Last Done: 10/13/23 16:40
Discharge Date and Time
Print Language: SERBIAN
[2023-10-13] MEDS: NSS 1000 IV (16:27)
--- NOTE | 2023-10-13 16:48 | EDRN ---
La Nena TOWNSEND in room w/ pt at this time.
--- NOTE | 2023-10-13 17:21 | HPS.HSE ---
Family Physician
-
Family Physician: Sabine Luu MD
Chief Complaint
-
Near syncope
History of Present Illness
73-year-old male with history of CAD, HTN, hyponatremia, anxiety GA 3 weeks ago, presents for reported syncopal episode at his cardiology office where he was for f/u for his GA. Pt states he was sitting listening to DIRECTOR CHECK Danielle Coleman when he became a
little dizzy, vision a little blurry, pale. He felt like he would faint but DIRECTOR CHECK kept him engaged and someone brought him water which he drank and felt better. Patient gets very anxious over what to eat since the cardiac stent. He was eating much
last than what he usually eat. Patient was on fluid restriction at home. Patient lost about 8 pounds in 3 weeks. Patient stated constipated for which he takes MiraLAX and Fleet enema with some relief in his symptoms. He did complain of some
abdominal discomfort since the cardiac stent. Patient denied any headache. patient denied any fever or chills, chest pain, short of breath. Patient denied any dysuria hematuria.
Admitting for further management
Medical History
Past Medical History
Past Medical History: Reports Other
Additional Past Medical History:
Lumbar degenerative disc disease
generalized anxiety disorder
hypertension
spinal stenosis
myocardial infarction
hyponatremia
BPH
Past Surgical History: Reports Other
Additional Past Surgical History:
hernia repair
cardiac stent
Social History
Tobacco: Non-smoker
Alcohol: None
Drug: None
Personal:
Living: With Family
Family History
Family History: Not pertinent
Allergies / Home Medications
Allergies reflects when Allergies were last updated in [facility]
Home Medications with original date entered in [facility]
Allergy/Medication List:
Allergies
Allergy/AdvReac Type Severity Reaction Status Date / Time
hydrochlorothiazide Allergy sodium Verified 10/13/23 13:41
depletion
Home Medications
clonazepam 0.5 mg tablet 0.125 mg PO HSPRN PRN anxiety 10/20/15
magnesium glycinate 100 mg tablet 100 mg PO DAILY 09/23/23
spironolactone 25 mg tablet 25 mg PO DAILY 09/23/23
aspirin 81 mg chewable tablet (Children's Aspirin) 81 mg PO DAILY #1 tab 09/25/23
atorvastatin 40 mg tablet 40 mg PO QPM #30 tabs 09/25/23
lisinopril 5 mg tablet 5 mg PO DAILY #30 tabs 09/25/23
metoprolol succinate 25 mg tablet,extended release 24 hr 12.5 mg (1/2 x 25 mg) PO DAILY #30 tabs 09/25/23
ticagrelor 90 mg tablet (Brilinta) 90 mg PO BID #60 tabs 09/25/23
polyethylene glycol 3350 17 gram oral powder packet (Miralax) 17 g PO DAILY PRN constipation 10/13/23
Review of Systems
-
Constitutional: Reports No Symptoms
EENT: Reports No Symptoms
Respiratory: Reports No Symptoms
Cardiac: Reports No Symptoms
Abdomen/GI: Reports No Symptoms, Abdominal Pain and Constipated
: Reports No Symptoms
Musculoskeletal: Reports No Symptoms
Skin: Reports No Symptoms
Neurological: Reports Dizzy
Endocrine: Reports No Symptoms
Hematologic/Lymphatic: Reports No Symptoms
Psych: Reports No Symptoms
Physical Exam
Vital Signs
Vital Signs
Temp Pulse Resp BP Pulse Ox
97.6 F 63 18 162/83 100
10/13/23 13:43 10/13/23 16:40 10/13/23 16:40 10/13/23 16:40 10/13/23 16:40
Physical Exam
General: Well Developed, Well Nourished and No Apparent Distress
HEENT: NormoCephalic, Moist mucous membranes and Atraumatic
Respiratory: Clear
Cardiac: S1/S2 and Regular Rhythm; No Murmur or Rub
GI: Soft, Non Tender, Non Distended and Normal Bowel Sounds; No Organomegaly
Rectal: Deferred by Provider
Musculoskeletal: No Clubbing, No Cyanosis and No Edema
Skin: No Rash
Neuro: AO x 3 and Nonfocal/grossly intact
Psych: Calm
Laboratory Results
-
10/13/23 13:57
10/13/23 13:57
Laboratory Results
Total Bilirubin 1.0 mg/dl (0.2-1.3) 10/13/23 13:57
AST 37 U/L (17-59) 10/13/23 13:57
ALT 30 U/L (0-50) 10/13/23 13:57
Alkaline Phosphatase 79 U/L (38-126) 10/13/23 13:57
Troponin I 0.015 ng/ml 10/13/23 13:57
Data Reviewed
-
Lab Data: Labs Reviewed by me
Impression/Plan
-
# dizzy, lightheaded likely from poor oral intake
- troponin 0.015
- EKG with bradycardia
- received 1 L normal saline in ER
- obtain orthostatic
# acute on chronic hyponatremia/acute kidney injury likely dehydration
- sodium 121 , creatinine 1.4
- received 1 L normal saline anemia
- nephrology consulted
- urine sodium, osmolality, serum osmolality ordered
# recent NSTEMI
- cardiac stent
- aspirin continued
- Brilinta continued
# hyperlipidemia
- statin continued
# constipation
- MiraLAX continued
# essential hypertension
- hold lisinopril due to JAELYN
- hold spironolactone
- metoprolol continue with hold parameters. hold if heart rate less than 60 and systolic BP less than 95
# DVT prophylaxis
- SCD
# CODE STATUS
- full code
[2023-10-13 17:50] LABS: Osmolality Serum 264 mOsm/kg (275-300)
--- NOTE | 2023-10-13 18:00 | W.PN.UPDATE ---
Update Note
Progress Note Update
I saw and examined the patient.
The POWER HOUSE CONTROL ROOM OPERATOR's note was reviewed and I agree with the note. This is in addition to H&P
Comment:
73-year-old male past medical history of recent STEMI status post stent, hyponatremia, severe anxiety, depression, gout, hyperaldosteronism, vitamin D deficiency who is presenting from cardiology office with presyncope. Patient had a recent
hospitalization with STEMI status post cardiac stent. Presenting today with weakness and presyncope.
Discussed case with Urmila Coleman who saw the patient in the cardiology clinic earlier today. Per urmila, patient got pale diaphoretic and stopped speaking. Patient did not lose consciousness. Patient was found to have systolic blood pressure 80�40
and bradycardic. Event lasted for 5 to 10-second after which patient became more responsive and back to baseline. Currently patient is sitting in ER bed talking.
General: Well Developed, Well Nourished and No Apparent Distress
HEENT: NormoCephalic, Moist mucous membranes and Atraumatic
Respiratory: Clear
Cardiac: S1/S2 and Regular Rhythm; No Murmur or Rub
GI: Soft, Non Tender, Non Distended and Normal Bowel Sounds; No Organomegaly
Rectal: Deferred by Provider
Musculoskeletal: No Clubbing, No Cyanosis and No Edema
Skin: No Rash
Neuro: AO x 3 and Nonfocal/grossly intact
Psych: Calm
Impression
Presyncope likely secondary dehydration
Acute on chronic hyponatremia
Elevated creatinine
CKD
CAD status post stent
Recent STEMI
Severe anxiety
Hyperlipidemia
Plan
Check orthostatic vital signs
Hold Aldactone lisinopril
Nephrology evaluation
Continue with antiplatelet agents
PT and OT
Monitor on telemetry
DVT prophylaxis
Discussed with spouse at bedside in detail
I spent a total of 79 minutes with the patient or on the floor. More than 50% of this time involved counseling and coordination of care.
--- NOTE | 2023-10-13 18:05 | EDRN ---
Supper diet tray ordered at this time.
[2023-10-13] MEDS: KLONOPIN 0.125 MG PO (18:30)
[2023-10-13] MEDS: LIPITOR 40 MG PO (21:57)
[2023-10-13] MEDS: BRILINTA 90 MG PO (21:58)
[2023-10-13 22:20] LABS: Osmolality Urine 276 mOsm/kg (300-900)
[2023-10-13 22:34] LABS: Urine Sodium 31 mmol/L (30-90)
[2023-10-14] VITALS (9 sets, daily range): BP systolic 140–192; BP diastolic 76–109; PULSE 65–79
[2023-10-14 06:17] LABS: Hematocrit 36.9 % (39.0-52.0); Hemoglobin 13.5 g/dL (13.0-18.0); Mean Corp Hgb Conc. 36.6 g/dL (33.0-37.0); Mean Corpuscular Hgb 31.9 pg (27.0-31.0); Mean Corpuscular Volume 87.2 fL (80.0-94.0); Mean Platelet Volume 8.8 fL (7.4-10.4); Platelet Count 141 10^3/uL (130-400); Red Blood Cell Count 4.23 10^6/uL (4.70-6.10); Red Cell Dist. Width 12.7 % (11.5-14.5)
[2023-10-14 07:02] LABS: Blood Urea Nitrogen 31 mg/dl (9-20); Calcium 9.3 mg/dl (8.4-10.2); Carbon Dioxide 21 mmol/L (22-30); Chloride 101 mmol/L (98-107); Estimated Creatinine Clearance 45 ml/min; Glucose 83 mg/dl (70-99); Potassium 4.9 mmol/L (3.5-5.1); Sodium 129 mmol/L (135-145); eGFR 58.37
[2023-10-14] MEDS: TOPROL XL 12.5 MG PO (09:30)
[2023-10-14] MEDS: LOW STRENGTH ASPIRIN 81 MG PO (09:30)
[2023-10-14] MEDS: BRILINTA 90 MG PO ×2 (09:30→19:55)
[2023-10-14] MEDS: MIRALAX 17 GRAMS PO ×2 (09:42→16:47)
--- NOTE | 2023-10-14 10:41 | W.PN.HOSP.TC ---
Addendum entered and electronically signed by Jesus Alberto Ram MD 10/14/23 12:32:
Orthostatic negative. Will restart Aldactone 12.5 mg at bedtime.
Original Note:
Today's Communication/Plan
-
Monitor blood pressure
PT and OT
Trend BMP
Restart lisinopril
Assessment / Plan
Assessment / Plan
# Presyncope likely secondary to vasovagal secondary to hypotension
-Restart lisinopril
-Metoprolol with hold parameters
-Continue to trend orthostatics
-Hold further IV fluids
-If blood pressure allows can restart Aldactone at a lower dose
# acute on chronic hyponatremia/acute kidney injury likely dehydration
# CKD 3A versus B
- sodium 121 , creatinine 1.4
- received 1 L normal saline in ER
-Sodium at 129 today. Stop further fluids and trend BMP
-Trend creatinine
# recent NSTEMI
- cardiac stent
- aspirin continued
- Brilinta continued
# hyperlipidemia
- statin continued
# constipation
- MiraLAX continued
# essential hypertension
-Continue metoprolol. Restart lisinopril.
Severe anxiety�continue Klonopin
# DVT prophylaxis
-Lovenox
# CODE STATUS
- full code
PT/OT ordered-monitor blood pressure with ambulation
Anticipated Discharge: Within 24 hours
Subjective/Interval History
-
Date of Service: October 14, 2023
states feeling better
Objective Data
-
Labs:
Laboratory Results
10/14/23
06:10
WBC 5.0
Hgb 13.5
Hct 36.9 L
Plt Count 141
Sodium 129 L D
Potassium 4.9
Chloride 101
Carbon Dioxide 21 L
BUN 31 H
Creatinine 1.3
Glucose 83
Calcium 9.3
Vital Signs:
Vital Signs
Temp Pulse Resp BP Pulse Ox
97.7 F 56 16 140/85 100
10/14/23 07:40 10/14/23 07:40 10/14/23 07:40 10/14/23 07:40 10/14/23 07:40
I&O
10/13/23 10/14/23 10/15/23
06:59 06:59 06:59
Intake Total 480 / 480
Balance 480 / 480
Physical Exam
-
General: Well Developed and No Apparent Distress
HEENT: Normocephalic, Atraumatic and Moist Mucous Membranes
Respiratory: Clear to Auscultation
Cardiac: Regular Rhythm and S1/S2; Negative Murmur, Rub or Gallop
GI: Soft, Nontender, Nondistended and Normal Bowel Sounds; Negative Organomegaly
Rectal: Deferred by Provider
Musculoskeletal: No Clubbing, No Cyanosis and No Edema
Skin: Negative Rash
Neuro: Awake, No Motor Deficits and Nonfocal/Grossly Intact
Psych: Calm
Data Reviewed
-
Total Time Spent with Patient (in minutes): 56
[2023-10-14] MEDS: ZESTRIL 5 MG PO (11:52)
--- NOTE | 2023-10-14 13:55 | CM ---
Reviewed chart, met with patient to obtain information for assessment. Patient stated that he lives with his in a 4 story townhouse with two steps to enter. He described himself as independent with ADLs, self care, toileting, dressing and
bathing. 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
Patient drives and can get to his appointments and do all his own shopping.
He denied any DME in his home.
He has never had VN services.
He has not had to go to a SNF.
Patient has a prescription plan and uses [facility] in [place] for all of his medications.
His Provider is Sabine Luu.
Patient stated that he feels that he should be able to return home when stable for discharge and does not anticipate any needs.
Plan: Case management will continue to follow and assist with discharge planning. Home when stable.
--- NOTE | 2023-10-14 16:47 | PTCARENOTE ---
Dr. Ram made aware of elevated BP, 185/95. Electronic order received to give Aldactone, see MAR.
[2023-10-14] MEDS: ALDACTONE 12.5 MG PO (16:48)
[2023-10-14] MEDS: LIPITOR 40 MG PO (16:48)
[2023-10-14] MEDS: KLONOPIN 0.125 MG PO (21:36)
[2023-10-15] VITALS (11 sets, daily range): BP systolic 152–180; BP diastolic 86–109; PULSE 65–78; O2SAT 100
[2023-10-15 06:34] LABS: Hematocrit 34.9 % (39.0-52.0); Mean Corp Hgb Conc. 37.2 g/dL (33.0-37.0); Mean Corpuscular Hgb 31.5 pg (27.0-31.0); Mean Corpuscular Volume 84.5 fL (80.0-94.0); Mean Platelet Volume 8.8 fL (7.4-10.4); Platelet Count 152 10^3/uL (130-400); Red Blood Cell Count 4.13 10^6/uL (4.70-6.10); Red Cell Dist. Width 12.7 % (11.5-14.5); White Blood Cell Count 5.3 10^3/uL (4.8-10.8)
[2023-10-15 06:58] LABS: Blood Urea Nitrogen 28 mg/dl (9-20); Calcium 9.3 mg/dl (8.4-10.2); Carbon Dioxide 21 mmol/L (22-30); Chloride 95 mmol/L (98-107); Estimated Creatinine Clearance 53 ml/min; Glucose 91 mg/dl (70-99); Potassium 4.2 mmol/L (3.5-5.1); Sodium 124 mmol/L (135-145); eGFR > 60.00
[2023-10-15] MEDS: BRILINTA 90 MG PO ×2 (09:00→20:44)
[2023-10-15] MEDS: ZESTRIL 5 MG PO (09:00)
[2023-10-15] MEDS: ALDACTONE PO (09:00)
[2023-10-15] MEDS: LOW STRENGTH ASPIRIN 81 MG PO (09:00)
[2023-10-15] MEDS: MIRALAX 17 GRAMS PO (09:00)
[2023-10-15] MEDS: ALDACTONE 12.5 MG PO (09:00)
[2023-10-15] MEDS: TOPROL XL 12.5 MG PO (09:01)
--- NOTE | 2023-10-15 09:25 | PTOTSP ---
pt currently requires supervision to no assistance to complete simple ADLs, functional transfers, ambulation. no overt deficits noted, no acute OT needs identified. will sign off.
--- NOTE | 2023-10-15 10:58 | W.PN.HOSP.TC ---
Today's Communication/Plan
-
Add fluid restriction
Restart home blood pressure regimen
Nephrology recommendation
Assessment / Plan
Assessment / Plan
# Presyncope likely secondary to vasovagal secondary to dehydration
-Restart lisinopril
-Metoprolol with hold parameters
-Continue to trend orthostatics negative
-Hold further IV fluids. Ambulating without difficulty.
# acute on chronic hyponatremia
# Acute on CKD 3A versus B
- sodium 121 , creatinine 1.4 on admission
- received 1 L normal saline in ER
-Sodium downtrending 124.
-Trend creatinine.
-Urine sodium remains low. May require Samsca. Will add fluid restriction for now
-Will ask for nephro input. Sees Dr. Perez.
# recent NSTEMI
- cardiac stent
- aspirin continued
- Brilinta continued
# hyperlipidemia
- statin continued
# constipation
- MiraLAX continued
-dulcolax added
# essential hypertension with history of hyperaldosteronism-from prior documentation also with suspected whitecoat hypertension and severe anxiety
-Continue metoprolol lisinopril and Aldactone
-May need to further adjust medication. Awaiting nephro input.
Severe anxiety�continue Klonopin
# DVT prophylaxis
-Lovenox
# CODE STATUS
- full code
PT/OT ordered-monitor blood pressure with ambulation
Anticipated Discharge: 24 - 48 hours
Subjective/Interval History
-
Date of Service: October 15, 2023
States of no bowel movement for the past few days
Blood pressure elevated today
Denies lightheaded or dizziness
Objective Data
-
Labs:
Laboratory Results
10/15/23
05:56
WBC 5.3
Hgb 13.0
Hct 34.9 L
Plt Count 152
Sodium 124 L
Potassium 4.2
Chloride 95 L
Carbon Dioxide 21 L
BUN 28 H
Creatinine 1.1
Glucose 91
Calcium 9.3
Vital Signs:
Vital Signs
Temp Pulse Resp BP Pulse Ox
97.8 F 73 17 180/96 100
10/15/23 07:35 10/15/23 07:35 10/15/23 07:35 10/15/23 07:35 10/15/23 07:35
I&O
10/14/23 10/15/23 10/16/23
06:59 06:59 06:59
Intake Total 480 / 480 90 / 90
Output Total 250 / 250
Balance 480 / 480 -160 / -160
Physical Exam
-
General: Well Developed and No Apparent Distress
HEENT: Normocephalic, Atraumatic and Moist Mucous Membranes
Respiratory: Clear to Auscultation
Cardiac: Regular Rhythm and S1/S2; Negative Murmur, Rub or Gallop
GI: Soft, Nontender, Nondistended and Normal Bowel Sounds; Negative Organomegaly
Rectal: Deferred by Provider
Musculoskeletal: No Clubbing, No Cyanosis and No Edema
Skin: Negative Rash
Neuro: Awake, No Motor Deficits and Nonfocal/Grossly Intact
Psych: Calm
--- NOTE | 2023-10-15 11:25 | W.CON.NEPH ---
Consultation
-
Date/Time Consultation Requested: 10/15/23 0803
Date/Time Consultation Performed: 10/15/23 1130
Requesting Provider: Jesus Alberto Phipps
Performing Provider: Jenni Cordova
Reason for Consultation: Hyponatremia
Medical History
-
Chief Complaint: near syncope
History of Present Illness:
Mr. Hernández is a 73YOM with PMH of hypertension on Aldactone for primary hyperaldo, anxiety, obesity, h/o thiazide induced hyponatremia, chronic hyponatremia, gout who was in September 3 wk ago for STEMI s/p PCI of RCA, required samsca for
hyponatremia presents with near syncope at cards office on 10/12 hence presented to the hospital. HIs sodium on admit was 121 improved with IF to 129 but decreased to 124today, cr was high at 1.4 improved to 1.1 today. His last sodium was at 128 after
last d/c. He reports complaint with FR. C/o dizziness, no CP or sob. no LE edema., no n/v. He lost about 8lbs in last 3weeks.
Patient stated constipated for which he takes MiraLAX and Fleet enema with some relief in his symptoms. He did complain of some abdominal discomfort since the cardiac stent which improved with BM today. N
Past Medical History
Anxiety
Depression
HTN (mineralocorticoid component)
chronic hyponatremia
gout
pancreatitis
liver cyst
Lumbar degenerative disc disease
generalized anxiety disorder
spinal stenosis
myocardial infarction 09/2023
BPH
Past Surgical History: Other (hernia repair cardiac stent)
Social History
Tobacco: Non-Smoker
Alcohol: None
Personal:
Living: With Family
Employment: Employed (in [employer])
Family History
Family History: Not Pertinent
Allergies / Home Medications
Allergy/AdvReac Type Severity Reaction Status Date / Time
hydrochlorothiazide Allergy sodium Verified 10/13/23 13:41
depletion
�Medication �Instructions �Recorded �Confirmed �Type
clonazepam 0.5 mg tablet 0.125 mg PO HSPRN PRN anxiety 10/20/15 10/13/23 History
magnesium glycinate 100 mg tablet 100 mg PO DAILY Supplement 09/23/23 10/13/23 History
spironolactone 25 mg tablet 25 mg PO DAILY Blood Pressure 09/23/23 10/13/23 History
aspirin 81 mg chewable tablet 81 mg PO DAILY #1 tab 09/25/23 10/13/23 Rx
(Children's Aspirin)
atorvastatin 40 mg tablet 40 mg PO QPM #30 tabs 09/25/23 10/13/23 Rx
lisinopril 5 mg tablet 5 mg PO DAILY #30 tabs 09/25/23 10/13/23 Rx
metoprolol succinate 25 mg 12.5 mg (1/2 x 25 mg) PO DAILY #30 09/25/23 10/13/23 Rx
tablet,extended release 24 hr tabs
ticagrelor 90 mg tablet (Brilinta) 90 mg PO BID #60 tabs 09/25/23 10/13/23 Rx
polyethylene glycol 3350 17 gram 17 g PO DAILY PRN constipation 10/13/23 10/13/23 History
oral powder packet (Miralax)
Review of Systems
-
All complete 12 point ROS have been inquired and found negative other than stated in HPI
Physical Exam
Vital Signs
Vital Signs
Temp Pulse Resp BP Pulse Ox
97.8 F 73 17 180/96 100
10/15/23 07:35 10/15/23 07:35 10/15/23 07:35 10/15/23 07:35 10/15/23 07:35
Lab Results
WBC 5.3 10^3/uL (4.8-10.8) 10/15/23 05:56
RBC 4.13 10^6/uL (4.70-6.10) L 10/15/23 05:56
Hgb 13.0 g/dL (13.0-18.0) 10/15/23 05:56
Hct 34.9 % (39.0-52.0) L 10/15/23 05:56
Plt Count 152 10^3/uL (130-400) 10/15/23 05:56
Sodium 124 mmol/L (135-145) L 10/15/23 05:56
Potassium 4.2 mmol/L (3.5-5.1) 10/15/23 05:56
Chloride 95 mmol/L (98-107) L 10/15/23 05:56
Carbon Dioxide 21 mmol/L (22-30) L 10/15/23 05:56
BUN 28 mg/dl (9-20) H 10/15/23 05:56
Creatinine 1.1 mg/dL (0.7-1.3) 10/15/23 05:56
eGFR > 60.00 10/15/23 05:56
Glucose 91 mg/dl (70-99) 10/15/23 05:56
Calcium 9.3 mg/dl (8.4-10.2) 10/15/23 05:56
Albumin 4.4 g/dl (3.5-5.0) 10/13/23 13:57
10/13/23 U osmo 276, U na 31
Physical Exam
General: Awake, Alert, Oriented, AOx3, No Distress and Nontoxic
HEENT: EOMI, Anicteric and Facial Symmetry
Respiratory: Clear, Normal Excursion and Nonlabored Respirations
Cardiac: S1/S2 and Regular Rate/Rhythm
Abdomen: Soft, Nontender and Nondistended
Musculoskeletal: No Cyanosis and No Edema
Skin: No Rash
Neuro: Nonfocal/Grossly Intact
Psych: Mood/afflect pleasant, Insight/judgement good and Appropriate
Assessment/Plan
-
IMP:
Presyncope likely secondary to vasovagal secondary to dehydration
acute on chronic hyponatremia
Acute on CKD 3A versus B
recent NSTEMI s/p PCI RCA
hyperlipidemia
constipation
essential hypertension with history of hyperaldosteronism
Severe anxiety
PLan:
After recent d/c 3wk ago for STEMI presents back on 10/12 with near syncope
Acute on chr hyponatremia-felt to be hypovolemia and improved with NS from 211 to 129, however decreased today 124
U osmo high 276, U na low 31.
check U acid if low trial samsca, if not try 3% saline
check sodium later today
check TSH in am
maintain FR 48 ounces/day
Bp are high with h/o severe anxiety, could up titrate BB and ACEI
d/w pt and in detail
Data Reviewed
-
Radiology: Report Reviewed by me
Labs: Labs Reviewed by me, Discussed with Patient and Discussed with Family
[2023-10-15 12:00] LABS: Uric Acid 7.8 mg/dl (3.5-8.5)
[2023-10-15] MEDS: APRESOLINE 10 MG PO (12:10)
[2023-10-15] MEDS: DULCOLAX 10 MG PO (12:11)
[2023-10-15] MEDS: KLONOPIN 0.125 MG PO ×2 (14:26→22:48)
[2023-10-15] MEDS: SODIUM CHLORIDE 3% 250 IV (15:55)
[2023-10-15] MEDS: LIPITOR 40 MG PO (16:59)
[2023-10-15] MEDS: TOPROL XL 25 MG PO (18:27)
[2023-10-15 20:02] LABS: Sodium 122 mmol/L (135-145)
[2023-10-16 03:00] VITALS: BP 159/86
[2023-10-16 07:00] VITALS: BP 141/79
[2023-10-16 07:29] LABS: Hematocrit 35.7 % (39.0-52.0); Hemoglobin 12.8 g/dL (13.0-18.0); Mean Corp Hgb Conc. 35.9 g/dL (33.0-37.0); Mean Corpuscular Hgb 31.3 pg (27.0-31.0); Mean Corpuscular Volume 87.3 fL (80.0-94.0); Mean Platelet Volume 9.2 fL (7.4-10.4); Platelet Count 152 10^3/uL (130-400); Red Blood Cell Count 4.09 10^6/uL (4.70-6.10); Red Cell Dist. Width 12.6 % (11.5-14.5); White Blood Cell Count 5.2 10^3/uL (4.8-10.8)
[2023-10-16 07:49] LABS: Blood Urea Nitrogen 24 mg/dl (9-20); Calcium 9.2 mg/dl (8.4-10.2); Carbon Dioxide 22 mmol/L (22-30); Chloride 99 mmol/L (98-107); Estimated Creatinine Clearance 48 ml/min; Glucose 81 mg/dl (70-99); Potassium 4.6 mmol/L (3.5-5.1); Sodium 126 mmol/L (135-145); eGFR > 60.00
[2023-10-16] MEDS: TOPROL XL 25 MG PO (08:33)
[2023-10-16] MEDS: ALDACTONE 25 MG PO (08:33)
[2023-10-16] MEDS: MIRALAX 17 GRAMS PO (08:33)
[2023-10-16] MEDS: BRILINTA 90 MG PO ×2 (08:33→19:51)
[2023-10-16] MEDS: LOW STRENGTH ASPIRIN 81 MG PO (08:33)
[2023-10-16] MEDS: ZESTRIL 5 MG PO (08:34)
[2023-10-16] MEDS: SODIUM CHLORIDE 3% 250 IV ×2 (09:15→19:48)
--- NOTE | 2023-10-16 10:26 | PTOTSP ---
The patient is ambulating and performing stairs independently, no mobility deficits noted. No PT needs identified at this time, will sign off.
[2023-10-16 11:00] VITALS: BP 127/80; BP 137/75; BP 148/74; PULSE 62; PULSE 65; PULSE 72
--- NOTE | 2023-10-16 11:19 | W.PN.HOSP.TC ---
Today's Communication/Plan
-
trend bmp
3% saline
monitor BP
Assessment / Plan
Assessment / Plan
# Presyncope likely secondary to vasovagal secondary to dehydration
-Restart lisinopril
-Metoprolol with hold parameters
-Continue to trend orthostatics negative
-Hold further IV fluids. Ambulating without difficulty.
# acute on chronic hyponatremia
# Acute on CKD 3A versus B
- sodium 121 , creatinine 1.4 on admission
- received 1 L normal saline in ER
-Sodium downtrending 124.
-Trend creatinine.
-Urine sodium remains low. Na at 126 and started on additional dose of 3% saline
-nephro following
# recent NSTEMI
- cardiac stent
- aspirin continued
- Brilinta continued
# hyperlipidemia
- statin continued
# constipation
- MiraLAX continued
-dulcolax added
# essential hypertension with history of hyperaldosteronism-from prior documentation also with suspected whitecoat hypertension and severe anxiety
-Continue metoprolol lisinopril and Aldactone
-May need to further adjust medication if persistently high.
-BP 141/79
Severe anxiety�continue Klonopin
# DVT prophylaxis
-Lovenox
# CODE STATUS
- full code
PT/OT ordered-
Anticipated Discharge: 24 - 48 hours
Subjective/Interval History
-
Date of Service: October 16, 2023
States of nasal dryness
had bm
Objective Data
-
Labs:
Laboratory Results
10/16/23 10/16/23
06:35 14:00
WBC 5.2
Hgb 12.8 L
Hct 35.7 L
Plt Count 152
Sodium 126 L Pending
Potassium 4.6
Chloride 99
Carbon Dioxide 22
BUN 24 H
Creatinine 1.2
Glucose 81
Calcium 9.2
Vital Signs:
Vital Signs
Temp Pulse Resp BP Pulse Ox
97.5 F 60 16 141/79 99
10/16/23 07:00 10/16/23 08:34 10/16/23 07:00 10/16/23 08:34 10/16/23 07:00
I&O
10/15/23 10/16/23 10/17/23
06:59 06:59 06:59
Intake Total 90 / 90 770 / 770
Output Total 250 / 250
Balance -160 / -160 770 / 770
Physical Exam
-
General: Well Developed and No Apparent Distress
HEENT: Normocephalic, Atraumatic and Moist Mucous Membranes
Respiratory: Clear to Auscultation
Cardiac: Regular Rhythm and S1/S2; Negative Murmur, Rub or Gallop
GI: Soft, Nontender, Nondistended and Normal Bowel Sounds; Negative Organomegaly
Rectal: Deferred by Provider
Musculoskeletal: No Clubbing, No Cyanosis and No Edema
Skin: Negative Rash
Neuro: Awake, No Motor Deficits and Nonfocal/Grossly Intact
Psych: Calm
[2023-10-16] MEDS: OCEAN, SALINE MIST 2 SPRAYS NASAL ×2 (12:37→19:51)
--- NOTE | 2023-10-16 13:35 | CM ---
Reviewed chart, patient has been reported to be at baseline level of functioning and will return home with spouse when medically cleared.
Plan: Case management will continue to follow and assist with discharge planning. Home when stable.
[2023-10-16 14:34] LABS: Sodium 127 mmol/L (135-145)
[2023-10-16 15:09] VITALS: BP 155/80
[2023-10-16] MEDS: LIPITOR 40 MG PO (17:17)
--- NOTE | 2023-10-16 18:28 | W.PN.NEPH.PH ---
Today's Communication / Plan
-
3% saline
Assessment/Plan
-
IMP:
Presyncope likely secondary to vasovagal secondary to dehydration
acute on chronic hyponatremia
Acute on CKD 3A versus B
recent NSTEMI s/p PCI RCA
hyperlipidemia
constipation
essential hypertension with history of hyperaldosteronism
Severe anxiety
PLan:
After recent d/c 3wk ago for STEMI presents back on 10/12 with near syncope
Acute on chr hyponatremia-felt to be hypovolemia
sodium improving slowly upto 127, try another 3%x2 saline today
U osmo high 276, U na low 31.
if sodium improving tomorrow ok to d/c per renal
check TSH in am
maintain FR 48 ounces/day
Bp are improving, BB increase dose 10/14, if still high can increase further
cont low dose of Aldactone and ACEI
d/w pt in detail
at d/c BMP on Friday
f//u nephro
-
-
Date of Service: October 16, 2023
CC / HPI / ROS
-
Chief Complaint:
Hypoantremia
History of Present Illness:
cr stable at 1.2, sodium better at 127 with 3% saline
BP improving
no fever
Review of Systems:
no cp or sob
no constipation
Labs
-
Labs:
WBC 5.2 10^3/uL (4.8-10.8) 10/16/23 06:35
RBC 4.09 10^6/uL (4.70-6.10) L 10/16/23 06:35
Hgb 12.8 g/dL (13.0-18.0) L 10/16/23 06:35
Hct 35.7 % (39.0-52.0) L 10/16/23 06:35
Plt Count 152 10^3/uL (130-400) 10/16/23 06:35
Sodium 127 mmol/L (135-145) L 10/16/23 14:06
Potassium 4.6 mmol/L (3.5-5.1) 10/16/23 06:35
Chloride 99 mmol/L (98-107) 10/16/23 06:35
Carbon Dioxide 22 mmol/L (22-30) 10/16/23 06:35
BUN 24 mg/dl (9-20) H 10/16/23 06:35
Creatinine 1.2 mg/dL (0.7-1.3) 10/16/23 06:35
eGFR > 60.00 10/16/23 06:35
Glucose 81 mg/dl (70-99) 10/16/23 06:35
Calcium 9.2 mg/dl (8.4-10.2) 10/16/23 06:35
Albumin 4.4 g/dl (3.5-5.0) 10/13/23 13:57
Physical Exam
-
Vital Signs:
Vital Signs
Temp Pulse Resp BP Pulse Ox
98.2 F 71 18 155/80 98
10/16/23 15:09 10/16/23 15:09 10/16/23 15:09 10/16/23 15:09 10/16/23 15:09
Cardiovascular:: Regular rate and rhythm
Respiratory:: Bilateral: CTA
Lung Excursion:: Normal
Abdomen:: Nontender and Soft
Extremity Edema:: None: Bilateral:
Kruger Catheter: No
[2023-10-16 19:30] VITALS: BP 160/88; BP 164/85; BP 165/87; PULSE 69; PULSE 72; PULSE 75
[2023-10-16] MEDS: KLONOPIN 0.125 MG PO (21:57)
[2023-10-16 23:11] VITALS: BP 163/88
[2023-10-17] MEDS: KLONOPIN 0.125 MG PO (01:50)
[2023-10-17 07:13] LABS: Hematocrit 35.5 % (39.0-52.0); Hemoglobin 12.8 g/dL (13.0-18.0); Mean Corp Hgb Conc. 36.1 g/dL (33.0-37.0); Mean Corpuscular Hgb 31.4 pg (27.0-31.0); Mean Corpuscular Volume 87.2 fL (80.0-94.0); Mean Platelet Volume 8.9 fL (7.4-10.4); Platelet Count 149 10^3/uL (130-400); Red Blood Cell Count 4.07 10^6/uL (4.70-6.10); Red Cell Dist. Width 12.7 % (11.5-14.5); White Blood Cell Count 4.8 10^3/uL (4.8-10.8)
[2023-10-17 07:33] VITALS: BP 171/93
[2023-10-17 08:10] LABS: Blood Urea Nitrogen 25 mg/dl (9-20); Calcium 9.1 mg/dl (8.4-10.2); Carbon Dioxide 22 mmol/L (22-30); Chloride 98 mmol/L (98-107); Estimated Creatinine Clearance 53 ml/min; Glucose 81 mg/dl (70-99); Potassium 4.4 mmol/L (3.5-5.1); Sodium 128 mmol/L (135-145); eGFR > 60.00
[2023-10-17 08:41] VITALS: BP 166/91
[2023-10-17] MEDS: LOW STRENGTH ASPIRIN 81 MG PO (08:42)
[2023-10-17] MEDS: MIRALAX 17 GRAMS PO (08:42)
[2023-10-17] MEDS: TOPROL XL 25 MG PO (08:42)
[2023-10-17] MEDS: OCEAN, SALINE MIST 1 SPRAYS NASAL (08:43)
[2023-10-17] MEDS: BRILINTA 90 MG PO (08:43)
[2023-10-17] MEDS: ALDACTONE 25 MG PO (08:43)
[2023-10-17 08:48] LABS: TSH Reflex To Free T4 2.05 uIU/ml (0.47-4.68)
[2023-10-17] MEDS: ZESTRIL 5 MG PO (08:50)
--- NOTE | 2023-10-17 10:04 | PN.CDI ---
CDI
- -
CDI:
Physician Documentation Request
Admit Date: 10/13/23 18:26
Dear Doctor Yo,
Please review the following and provide your response in the progress notes.
Clinical Indicators:
Pt admitted with Acute on Chronic Hyponatremia
Documented per nephrology ,' Acute on chr hyponatremia-felt to be hypovolemia and improved with NS from 211 to 129, however decreased today 124 U osmo high 276, U na low 31...maintain FR 48 ounces/day ...'
Progress note 10/15 nephrology , ' sodium improving slowly up to 127, try another 3%x2 saline today...'
Please provide the suspected Etiology of the documented hyponatremia :
SIADH
Hyponatremia
Other
Use of terms such as suspected, likely, concern for, or probable (associated with a specific diagnosis that is being evaluated, monitored, or treated as if it exists) are acceptable and can be coded in the inpatient setting, when documented at the
time of discharge.
Thank you,
Victorina Roe RN
CDI Specialist
[facility]
Please use your independent medical judgment in providing your response.
--- NOTE | 2023-10-17 12:01 | W.PN.HOSP.TC ---
Addendum entered and electronically signed by Jesus Alberto Ram MD 10/17/23 12:20:
Hyponatremia
Original Note:
Today's Communication/Plan
-
repeat BMP
dc home
Assessment / Plan
Assessment / Plan
# Presyncope likely secondary to vasovagal secondary to dehydration
-Restart lisinopril
-Metoprolol with hold parameters
-Continue to trend orthostatics negative
-Ambulating without difficulty.
-No events on telemetry
# acute on chronic hyponatremia
# Acute on CKD 3A versus B
- sodium 121 , creatinine 1.4 on admission
- received 1 L normal saline in ER
-Trend creatinine.
-Received 3% saline x 2. Sodium up trended almost close to baseline-
-repeat BMP Friday results faxed to his primary ecologist technician office Dr. Perez
-TSH wnl
-nephro following
# recent NSTEMI
- cardiac stent
- aspirin continued
- Brilinta continued
# hyperlipidemia
- statin continued
# constipation
- MiraLAX continued
-dulcolax added
# essential hypertension with history of hyperaldosteronism-from prior documentation also with suspected whitecoat hypertension and severe anxiety
-Continue metoprolol dose increased to 25 mg lisinopril and Aldactone
-May need to further adjust medication if persistently high.
-Outpatient nephrology and cardiology follow-up
Severe anxiety�continue Klonopin
# DVT prophylaxis
-Lovenox
# CODE STATUS
- full code
PT/OT ordered-home
More than 30 minutes spent in discharge including
Final examination of the patient
Summarizing hospital stay
Instructions for continuing care to all relevant caregivers
Preparation of discharge records, prescriptions, and referral forms
Total time spent (in minutes): 45
Anticipated Discharge: Today
Subjective/Interval History
-
Date of Service: October 17, 2023
States of anxiety
States not able to get overnight sleep much
Wants to go home
Objective Data
-
Labs:
Laboratory Results
10/17/23
06:48
WBC 4.8
Hgb 12.8 L
Hct 35.5 L
Plt Count 149
Sodium 128 L
Potassium 4.4
Chloride 98
Carbon Dioxide 22
BUN 25 H
Creatinine 1.1
Glucose 81
Calcium 9.1
Vital Signs:
Vital Signs
Temp Pulse Resp BP Pulse Ox
98.0 F 71 16 166/91 99
10/17/23 07:33 10/17/23 07:33 10/17/23 07:33 10/17/23 08:41 10/17/23 07:33
I&O
10/16/23 10/17/23 10/18/23
06:59 06:59 06:59
Intake Total 770 / 770 1320 / 1320
Balance 770 / 770 1320 / 1320
Physical Exam
-
General: Well Developed and No Apparent Distress
HEENT: Normocephalic, Atraumatic and Moist Mucous Membranes
Respiratory: Clear to Auscultation
Cardiac: Regular Rhythm and S1/S2; Negative Murmur, Rub or Gallop
GI: Soft, Nontender, Nondistended and Normal Bowel Sounds; Negative Organomegaly
Rectal: Deferred by Provider
Musculoskeletal: No Clubbing, No Cyanosis and No Edema
Skin: Negative Rash
Neuro: Awake, No Motor Deficits and Nonfocal/Grossly Intact
Psych: Anxious
--- NOTE | 2023-10-17 12:10 | W.DCSUMMARY ---
Discharge Summary
Discharge Data
Date of Admission: 10/13/23
Date of Discharge: 10/17/23
-
Pending Results: No
Hospital Course
73-year-old male past medical history of CAD with recent stent, hypertension, hyperaldosteronism, constipation, hyperlipidemia, severe anxiety, chronic hyponatremia, CAD who is presenting from cardiology office due to presyncope which was seen
secondary to vasovagal secondary to dehydration. Patient received IV fluids. Initially patient sodium improved however subsequently it then down trended. Patient orthostatic was negative. Patient was recently his home blood pressure regimen.
Blood pressure was persistently elevated and Toprol dose was increased. Patient was eval by nephrology and received 3% saline x 2. Patient sodium up trended to 128. Patient baseline around 128-129. Patient states he is eager to go home. Patient
was given prescription to get repeat blood work done early next week. Patient to follow-up with his primary survival specialist. Patient was ambulating without any difficulty. No events noted on telemetry. Patient was tolerating diet.
Discharge Plan
-
Patient Disposition: Home (Routine Discharge)
Discharge Diagnosis/Procedures: Presyncope likely secondary to vasovagal secondary dehydration
Acute on chronic hyponatremia
Acute on chronic kidney disease
Primary hypertension elevated
Condition: Fair
Diet: As tolerated and Restrict fluids to 64 oz
Activity: With assistance and As tolerated
Driving Restrictions: As prior to admission
Blood Work: BMP in 3 days an f/u results with nephrology
Referrals:
Sabine Luu MD [Family Provider] - in less than 1 week
Owen Ritter MD [Active] - None
Additional Discharge Medication Instructions: Metoprolol succinate dose was increased to 25 mg.
Prescriptions:
New
metoprolol succinate 25 mg Tablet Extended Release 24 Hr
25 mg PO DAILY 30 Days Qty: 30 0RF
Rx Instructions:
Hold for HR less than 60
Continued
clonazepam 0.5 MG tablet
0.125 mg PO HSPRN PRN (Reason: anxiety)
spironolactone 25 mg Tablet
25 mg PO DAILY
magnesium glycinate 100 mg Tablet
100 mg PO DAILY
Brilinta 90 mg Tablet
90 mg PO BID Qty: 60 5RF
atorvastatin 40 mg Tablet
40 mg PO QPM Qty: 30 5RF
aspirin [Children's Aspirin] 81 mg Tablet,Chewable
81 mg PO DAILY Qty: 1 0RF
lisinopril 5 mg Tablet
5 mg PO DAILY Qty: 30 5RF
polyethylene glycol 3350 [Miralax] 17 gram Powder In Packet
17 g PO DAILY PRN (Reason: constipation)
Discontinued
metoprolol succinate 25 mg Tablet Extended Release 24 Hr
12.5 mg PO DAILY Qty: 30 5RF
Discharge Orders:
Discharge Patient (As Directed); Ordered 10/17/23
Ordered By: Jesus Alberto Ram
Discharge Date and Time
Discharge Date/Time: 10/17/23 13:19
Print Language: TELUGU
--- NOTE | 2023-10-17 13:03 | W.PN.NEPH.PH ---
Today's Communication / Plan
-
- d/c
Assessment/Plan
-
IMP:
Presyncope likely secondary to vasovagal secondary to dehydration
acute on chronic hyponatremia
Acute on CKD 3A versus B
recent NSTEMI s/p PCI RCA
hyperlipidemia
constipation
essential hypertension with history of hyperaldosteronism
Severe anxiety
PLan:
After recent d/c 3wk ago for STEMI presents back on 10/12 with near syncope
Acute on chr hyponatremia-felt to be hypovolemia
sodium improving slowly up to 127 --> 128
U osmo high 276, U na low 31.
patient adament on leaving today, okay from neph standpoint
TSH wnl
maintain FR 48 ounces/day
BP improving with higher dose anti hypertensives.
cont low dose of Aldactone and ACEI
plan for d/c today. please obtain repeat labs Friday.
will plan for follow up with nephrology in 6-8 weeks.
-
-
Date of Service: October 17, 2023
CC / HPI / ROS
-
Chief Complaint:
Hypoantremia
History of Present Illness:
cr stable at 1.1, sodium better at 128 with 3% saline
BP improving
no fever
Review of Systems:
no cp or sob
no constipation
Labs
-
Labs:
WBC 4.8 10^3/uL (4.8-10.8) 10/17/23 06:48
RBC 4.07 10^6/uL (4.70-6.10) L 10/17/23 06:48
Hgb 12.8 g/dL (13.0-18.0) L 10/17/23 06:48
Hct 35.5 % (39.0-52.0) L 10/17/23 06:48
Plt Count 149 10^3/uL (130-400) 10/17/23 06:48
Sodium 128 mmol/L (135-145) L 10/17/23 06:48
Potassium 4.4 mmol/L (3.5-5.1) 10/17/23 06:48
Chloride 98 mmol/L (98-107) 10/17/23 06:48
Carbon Dioxide 22 mmol/L (22-30) 10/17/23 06:48
BUN 25 mg/dl (9-20) H 10/17/23 06:48
Creatinine 1.1 mg/dL (0.7-1.3) 10/17/23 06:48
eGFR > 60.00 10/17/23 06:48
Glucose 81 mg/dl (70-99) 10/17/23 06:48
Calcium 9.1 mg/dl (8.4-10.2) 10/17/23 06:48
Albumin 4.4 g/dl (3.5-5.0) 10/13/23 13:57
Physical Exam
-
Vital Signs:
Vital Signs
Temp Pulse Resp BP Pulse Ox
98.0 F 71 16 166/91 99
10/17/23 07:33 10/17/23 07:33 10/17/23 07:33 10/17/23 08:41 10/17/23 07:33
Cardiovascular:: Regular rate and rhythm
Respiratory:: Bilateral: Coarse
Lung Excursion:: Normal
Abdomen:: Nontender and Soft
Bowel Sounds:: Normal
Extremity Edema:: +1: Bilateral:
Kruger Catheter: No
== END 2023-10-17 13:19 | disposition home or self-care (01) | DRG 640 ==
LOC: 3 WEST ACU 18:26
PROVIDERS: Emergency Medicine; Registered Nurse; ADMITTING PHYSICIAN Hospitalist; CONSULT PHYSICIAN Internal Medicine; EMERGENCY PHYSICIAN Emergency Medicine; FAMILY PHYSICIAN Emergency Medicine
DX: E87.1 Hypo-osmolality and hyponatremia (principal); I21.4 Non-ST elevation (NSTEMI) myocardial infarction; N17.9 Acute kidney failure, unspecified; E86.0 Dehydration; R55 Syncope and collapse; I25.10 Atherosclerotic heart disease of native coronary artery without angina pectoris; I12.9 Hypertensive chronic kidney disease with stage 1 through stage 4 chronic kidney disease, or unspecified chronic kidney disease; F41.1 Generalized anxiety disorder; M51.36 Other intervertebral disc degeneration, lumbar region; N18.31 Chronic kidney disease, stage 3a; M48.00 Spinal stenosis, site unspecified; N40.0 Benign prostatic hyperplasia without lower urinary tract symptoms; E78.5 Hyperlipidemia, unspecified; K59.00 Constipation, unspecified; F32.A Depression, unspecified; M10.9 Gout, unspecified; E55.9 Vitamin D deficiency, unspecified; E26.9 Hyperaldosteronism, unspecified; K76.89 Other specified diseases of liver; Z79.02 Long term (current) use of antithrombotics/antiplatelets; Z79.82 Long term (current) use of aspirin; Z95.5 Presence of coronary angioplasty implant and graft; Z88.8 Allergy status to other drugs, medicaments and biological substances
CPT/HCPCS: 80048; 80053; 83930; 83935; 84295; 84300; 84443; 84484; 84550; 85025; 85027; 93005; 96360; 96361; 97116; 97161; 97165; 99285

== ENCOUNTER 2023-10-31 16:34 | Outpatient (RCR) | payer MEDICARE, OTHER, SELFPAY | END 2023-10-31 23:59 | disposition home or self-care (01) | LOC: CRHB 16:34 | PROVIDERS: ATTENDING PHYSICIAN Internal Medicine Interventional Cardiology | DX: I21.01 ST elevation (STEMI) myocardial infarction involving left main coronary artery (principal); I25.10 Atherosclerotic heart disease of native coronary artery without angina pectoris; Z95.5 Presence of coronary angioplasty implant and graft | CPT/HCPCS: G0422 ==

== ENCOUNTER → 2023-11-05 15:15 | Outpatient (REF) | payer MEDICARE, OTHER, SELFPAY | LOC: MRI 3T 15:15 | PROVIDERS: ATTENDING PHYSICIAN Emergency Medicine | DX: R74.8 Abnormal levels of other serum enzymes (principal); Z87.19 Personal history of other diseases of the digestive system; R79.89 Other specified abnormal findings of blood chemistry; R10.33 Periumbilical pain | CPT/HCPCS: 74183; A9575 ==

== ENCOUNTER 2023-11-06 15:34 | Emergency (ER) | payer MEDICARE, OTHER, SELFPAY ==
[2023-11-06 15:47] VITALS: BP 158/90
[2023-11-06 16:09] LABS: % Basophils 0.6 % (0-2); % Eosinophils 1.8 % (0-6); % Immature Granulocytes 0.4 % (0-0.5); % Lymphocytes 13.5 % (20.5-51.1); % Monocytes 12.2 % (1.7-9.3); % Neutrophils 71.5 % (42.2-75.2); Absolute Eosinophils 0.1 10^3/uL (0-0.7); Absolute Lymphocytes 0.7 10^3/uL (1.2-3.4); Absolute Monocytes 0.6 10^3/uL (0.1-0.6); Absolute Neutrophils 3.5 10^3/uL (1.4-6.5); Hematocrit 35.3 % (39.0-52.0); Hemoglobin 12.9 g/dL (13.0-18.0); Mean Corp Hgb Conc. 36.5 g/dL (33.0-37.0); Mean Corpuscular Hgb 31.9 pg (27.0-31.0); Mean Corpuscular Volume 87.4 fL (80.0-94.0); Mean Platelet Volume 8.7 fL (7.4-10.4); Nucleated Red Blood Cells % 0 % (-); Platelet Count 145 10^3/uL (130-400); Red Blood Cell Count 4.04 10^6/uL (4.70-6.10); Red Cell Dist. Width 13.2 % (11.5-14.5); White Blood Cell Count 4.9 10^3/uL (4.8-10.8)
[2023-11-06 16:19] LABS: ALT (SGPT) 31 U/L (0-50); AST (SGOT) 34 U/L (17-59); Albumin 4.3 g/dl (3.5-5.0); Alkaline Phosphatase 73 U/L (38-126); Blood Urea Nitrogen 29 mg/dl (9-20); Calcium 9.1 mg/dl (8.4-10.2); Carbon Dioxide 21 mmol/L (22-30); Glucose 101 mg/dl (70-99); Lipase 353 U/L (23-300); Total Bilirubin 0.9 mg/dl (0.2-1.3); Total Protein 6.6 g/dl (6.3-8.2); eGFR > 60.00
[2023-11-06 16:25] LABS: Potassium 4.7 mmol/L (3.5-5.1); Sodium 123 mmol/L (135-145)
[2023-11-06 16:26] LABS: Chloride 94 mmol/L (98-107)
--- NOTE | 2023-11-06 22:53 | ED.GENMED ---
History of Present Illness
<EMILY Monte - Last Filed: 11/07/23 06:51>
General
Chief Complaint: Abdominal Symptoms
Source: patient
Exam Limitations: none
Time Seen by Provider: 11/06/23 22:22
Nursing documentation reviewed up to this point in time: agreed with
Travel History
Have you had any contact with someone who has COVID-19?: No
Do you have any symptoms of coronavirus? Fever > 100 degrees, chills, cough, shortness of breath, sore throat, loss of taste or smell, muscle aches, or headache?: No
History of Present Illness
History of Present Illness:
This is a 73 year old male with history of CAD with recent stent, HTN, hyperaldosteronism, HLD, chronic hyponatremia who presents to the ER with complaint of abdominal pain x2 months. He states symptoms started around the time of his STEMI and stent
placement in mid-september. He reports dull/achy intermittent abdominal pain that is located in the RUQ that radiates to the back. He spoke to his PCP about these symptoms who sent him to get an abd MRI. Findings of this MRI were consistent with mild
acute interstitial edematous pancreatitis with 1.1cm cyst in the pancreatic head. He had 3-4 episodes of fatty loose stools and has been attempting to change his diet. He has no incorporated any fiber supplement into his diet. He denies history of
celiac disease. He denies any nausea, vomiting, chest pain, shortness of breath or headache.
Past History
<EMILY Monte - Last Filed: 11/07/23 06:51>
Past History
ED Past Medical History: HTN and Other (left ear tinnitus, hyponatremia, Pancreatitis, internal hemorrhoid); Negative CAD or Hypercholesterolemia
ED Past Surgical History: Other (Hernia repair)
Social History
Tobacco: Non-smoker
Alcohol: None
Personal:
Living: with family
Employment: Employed
Family History
Family History: Hypertension; Negative Diabetes, CAD or Sudden
Review of Systems
<EMILY Monte - Last Filed: 11/07/23 06:51>
Review of Systems
Allergies reviewed?: Yes
All Other Systems: Not applicable
Constitutional: Reports no symptoms
EENT: Reports no symptoms
Respiratory: Reports no symptoms
Cardiac: Reports no symptoms
ABD/GI: Reports abdominal pain
: Reports no symptoms
Musculoskeletal: Reports no symptoms
Skin: Reports no symptoms
Neurological: Reports no symptoms
Endocrine: Reports no symptoms
Hematologic/Lymphatic: Reports no symptoms
Psychiatric: Reports no symptoms
Phy Exam
<EMILY Monte - Last Filed: 11/07/23 06:51>
General Physical Exam
General Presentation: well appearing and no apparent distress
General Skin: warm and dry
General Habitus: normal
General Mental: alert
General Hydration: appears well hydrated
ENT Exam
ENT Exam: EOMI, pharynx normal, neck supple and normocephalic
Eye Exam
Eye Exam: PERRL, cornea clear and conjunctiva normal
Cardiovascular Exam
Cardiovascular Exam: regular rate/rhythm, no edema, no murmur and normal peripheral pulses
Pulmonary Exam
Pulmonary Exam: lungs clear, no respiratory distress, no rales, no crackles, no rhonchi, no stridor, no wheezing and no cough
Gastrointestinal Exam
Gastrointestinal Exam: normal bowel sounds, soft, no organomegaly, no pulsatile mass and non distended
Palpation: right upper quadrant: Minimal tenderness
Neurological Exam
Neurological Exam: alert, oriented x3, no motor deficits and speech normal
Musculoskeletal Exam
Musculoskeletal Exam: full ROM and no edema
Skin Exam
Skin Exam: normal color, warm/dry, no rash and no petechia
Psychiatric Exam
Psychiatric Exam: normal mood/affect
Course
<EMILY Monte - Last Filed: 11/07/23 06:51>
Orders/Labs/Results
Orders:
Orders
11/06/23 15:56
Complete Blood Count/With Diff Urgent
Comprehensive Metabolic Panel Urgent
Lipase Urgent
11/06/23 23:25
Urinalysis Reflex To Culture Urgent
Date Specimen was Collected: 11/06/23
Time Specimen was Collected: 23:23
11/06/23 23:50
0.9% Sodium Chloride 1000 ml [Nss] 1,000 ml IV BOLUS
11/07/23 00:26
Lactated Ringers [Lr] 1,000 ml IV BOLUS
11/07/23 00:27
Atorvastatin [Lipitor] 40 mg PO NOW STA
Ticagrelor [Brilinta] 90 mg PO NOW STA
11/07/23 00:38
Ticagrelor [Brilinta] 90 mg PO NOW STA
Abnormal Lab Results
11/06/23
15:56
RBC 4.04 L 10^6/uL
(4.70-6.10)
Hgb 12.9 L g/dL
(13.0-18.0)
Hct 35.3 L %
(39.0-52.0)
MCH 31.9 H pg
(27.0-31.0)
Absolute Lymphs (auto) 0.7 L 10^3/uL
(1.2-3.4)
Lymphocytes % 13.5 L %
(20.5-51.1)
Monocytes % 12.2 H %
(1.7-9.3)
Sodium 123 L mmol/L
(135-145)
Chloride 94 L mmol/L
(98-107)
Carbon Dioxide 21 L mmol/L
(22-30)
BUN 29 H mg/dl
(9-20)
Glucose 101 H mg/dl
(70-99)
Lipase 353 H U/L
(23-300)
11/06/23 15:56
11/06/23 15:56
Vital Signs
Initial and Last Documented VS:
Initial Vital Signs
Temp Pulse Resp BP Pulse Ox
98.1 F 76 16 158/90 100
11/06/23 15:47 11/06/23 15:47 11/06/23 15:47 11/06/23 15:47 11/06/23 15:47
Last Documented Vital Signs
Temp Pulse Resp BP Pulse Ox
98.1 F 55 17 185/83 100
11/06/23 15:47 11/07/23 01:30 11/07/23 01:30 11/07/23 01:00 11/07/23 01:30
<Andrés Cleaning, - Last Filed: 11/07/23 02:42>
Orders/Labs/Results
Orders:
Orders
11/06/23 15:56
Complete Blood Count/With Diff Urgent
Comprehensive Metabolic Panel Urgent
Lipase Urgent
11/06/23 23:25
Urinalysis Reflex To Culture Urgent
Date Specimen was Collected: 11/06/23
Time Specimen was Collected: 23:23
11/06/23 23:50
0.9% Sodium Chloride 1000 ml [Nss] 1,000 ml IV BOLUS
11/07/23 00:26
Lactated Ringers [Lr] 1,000 ml IV BOLUS
11/07/23 00:27
Atorvastatin [Lipitor] 40 mg PO NOW STA
Ticagrelor [Brilinta] 90 mg PO NOW STA
11/07/23 00:38
Ticagrelor [Brilinta] 90 mg PO NOW STA
Abnormal Lab Results
11/06/23
15:56
RBC 4.04 L 10^6/uL
(4.70-6.10)
Hgb 12.9 L g/dL
(13.0-18.0)
Hct 35.3 L %
(39.0-52.0)
MCH 31.9 H pg
(27.0-31.0)
Absolute Lymphs (auto) 0.7 L 10^3/uL
(1.2-3.4)
Lymphocytes % 13.5 L %
(20.5-51.1)
Monocytes % 12.2 H %
(1.7-9.3)
Sodium 123 L mmol/L
(135-145)
Chloride 94 L mmol/L
(98-107)
Carbon Dioxide 21 L mmol/L
(22-30)
BUN 29 H mg/dl
(9-20)
Glucose 101 H mg/dl
(70-99)
Lipase 353 H U/L
(23-300)
11/06/23 15:56
11/06/23 15:56
Vital Signs
Initial and Last Documented VS:
Initial Vital Signs
Temp Pulse Resp BP Pulse Ox
98.1 F 76 16 158/90 100
11/06/23 15:47 11/06/23 15:47 11/06/23 15:47 11/06/23 15:47 11/06/23 15:47
Last Documented Vital Signs
Temp Pulse Resp BP Pulse Ox
98.1 F 55 17 185/83 100
11/06/23 15:47 11/07/23 01:30 11/07/23 01:30 11/07/23 01:00 11/07/23 01:30
Marinalt;EMILY Monte - Last Filed: 11/07/23 06:51>
MDM/Problems Addressed
Differential Diagnosis Includes:
Acute pancreatitis, cholecystitis, gastroenteritis, gastritis
Cholecystitis considered due to RUQ, however no gallbladder abnormalities seen on abdominal MRI. Gastroenteritis and gastritis considered, however no nausea or vomiting making it less likely. Abd MRI findings consistent with mild acute interstitial
edematous pancreatitis with 1.1cm cyst in the pancreatis head.
<EMILY Monte - Last Filed: 11/07/23 06:51>
*Critical Care Note
Total Time (30-74mins, 75-104mins- exclusive of procedures): Not Applicable
ED Attending Note
<EMILY Monte - Last Filed: 11/07/23 06:51>
-
Portions of this chart may have been created with voice recognition software.� Occasional wrong word or��sound alike� substitutions may have occurred due to the inherent limitations of voice recognition software.
<Andrés Cleaning DO - Last Filed: 11/07/23 02:42>
ED Attending Note
Patient seen and examined by attending physician: Yes
I performed the substantive portion of visit, reviewed & personally made and approve the management plan that is documented in note by myself or MORELIA.: Yes
ED Attending Note:
Pleasant 73-year-old male who presents with intermittent abdominal pain has been present for the last 2 months. Patient also has a history of chronic hyponatremia. Patient had an MRI as prescribed by his primary care provider. It showed mild
acute edematous pancreatitis with a 1.1 cm cyst in the pancreatic head. He was told to come to the emergency department. Patient denies any chest pain or shortness of breath. Reports no nausea or vomiting. He does have mild intermittent
abdominal pain located in the right upper quadrant. Patient was seen in conjunction with the PA student. I have reviewed and agree with the history and treatment plan presented. On my independent physical exam, patient is awake, alert, and
oriented x3. Heart is regular rate and rhythm. Lungs are clear to auscultation bilaterally. Abdomen is soft with no tenderness to palpation on my exam. Good bowel sounds x 4 quadrants.
11/07/2023 0229 AM: Patient is resting comfortably wishes to be discharged to home. He still does not have any tenderness to palpation. Patient will return to the emergency department with any changing or worsening of symptoms.
Discharge Plan
Departure
Patient Disposition: Home (Routine Discharge)
Date of Disposition: 11/07/23
Time of Disposition: 02:29
Patient with high blood pressure during this ER visit?: Yes
Condition: Good
Discharge Problem:
Abdominal pain, Acute pancreatitis
Instructions: Pancreatitis (DC), BLOOD PRESSURE
Prescriptions:
No Action
clonazepam 0.5 MG tablet
0.125 mg PO HSPRN PRN (Reason: anxiety)
spironolactone 25 mg Tablet
25 mg PO DAILY
magnesium glycinate 100 mg Tablet
100 mg PO DAILY
Brilinta 90 mg Tablet
90 mg PO BID Qty: 60 5RF
atorvastatin 40 mg Tablet
40 mg PO QPM Qty: 30 5RF
aspirin [Children's Aspirin] 81 mg Tablet,Chewable
81 mg PO DAILY Qty: 1 0RF
lisinopril 5 mg Tablet
5 mg PO DAILY Qty: 30 5RF
polyethylene glycol 3350 [Miralax] 17 gram Powder In Packet
17 g PO DAILY PRN (Reason: constipation)
metoprolol succinate 25 mg Tablet Extended Release 24 Hr
25 mg PO DAILY 30 Days Qty: 30 0RF
Rx Instructions:
Hold for HR less than 60
Referrals:
Sabine Luu MD [Family Provider] -
Activity Restrictions/Additional Instructions:
It was a pleasure meeting you and taking part in your care. We hope for your continued healing and wellness.
Please read discharge instructions in their entirety. However, they are for general education and may not describe your exact diagnosis at discharge. Information on your ER visit and medical conditions were discussed with you along with appropriate
follow up information...
If indicated, please take your medications as instructed and indicated on discharge paperwork.
Please schedule a follow up appointment as directed. Call to schedule an appointment
Please return to the emergency department with ANY change in, persisting, or worsening of symptoms. If any of your symptoms do not improve, or persist, or become more severe within 6-12 hours, please return to the emergency department for further
care.
Please return to the emergency department if you develop a headache, neck pain/stiffness, fever greater than 100.4F, chest pain, shortness of breath, persistent nausea, vomiting, slurred speech, difficulty walking, numbness/tingling, weakness, signs
of infection or any other symptoms that are worrisome to you.
If you have any questions or concerns please do not hesitate to call the Hospital at or E-mail me directly at [email or web address]
Interventions
Interventions:
*Risk Screen - Suicide Last Done: 11/06/23 23:22
*General Assessment Last Done: 11/06/23 23:22
*Neglect/Abuse Screening Last Done: 11/06/23 23:22
ED- Fall Risk Assessment Last Done: 11/06/23 23:22
*ED COVID-19 Vaccine History Last Done: 11/06/23 23:22
*Nursing Disposition Last Done: 11/07/23 02:22
RQ-[place] Assessment Last Done: 11/06/23 23:22
Discharge Date and Time
Discharge Date/Time: 11/07/23 02:32
Print Language: TELUGU
[2023-11-06 23:16] VITALS: BP 184/99
[2023-11-06 23:20] VITALS: BP 166/102
[2023-11-06 23:50] LABS: Urine Albumin Negative (Neg - Trace); Urine Bilirubin Negative (Negative); Urine Character Clear (Clear); Urine Color Yellow; Urine Glucose Negative (Negative); Urine Ketone Negative (Negative); Urine Leukocyte Negative (Negative); Urine Nitrite Negative (Negative); Urine Occult Blood Negative (Negative); Urine Specific Gravity 1.005 (<1.030); Urine Urobilinogen Negative (Neg - 1+)
[2023-11-07] VITALS: BP 174/84
[2023-11-07] MEDS: LIPITOR 40 MG PO (00:39)
[2023-11-07] MEDS: LR 1000 IV (00:39)
[2023-11-07] MEDS: BRILINTA 90 MG PO (00:46)
[2023-11-07 01:00] VITALS: BP 185/83
== END 2023-11-07 02:32 | disposition home or self-care (01) ==
LOC: EMR 15:34
PROVIDERS: Emergency Medicine; EMERGENCY PHYSICIAN Student in an Organized Health Care Education/Training Program; FAMILY PHYSICIAN Emergency Medicine
DX: R10.11 Right upper quadrant pain (principal); I10 Essential (primary) hypertension; E78.5 Hyperlipidemia, unspecified; I25.10 Atherosclerotic heart disease of native coronary artery without angina pectoris
CPT/HCPCS: 99284; 96360; 80053; 81003; 83690; 85025

== ENCOUNTER 2023-12-07 22:38 | Emergency (ER) | payer MEDICARE, OTHER, SELFPAY ==
[2023-12-07 23:12] LABS: % Eosinophils 2.2 % (0-6); % Immature Granulocytes 0.2 % (0-0.5); % Lymphocytes 18.2 % (20.5-51.1); % Monocytes 14.2 % (1.7-9.3); % Neutrophils 64.2 % (42.2-75.2); Absolute Eosinophils 0.1 10^3/uL (0-0.7); Absolute Lymphocytes 0.7 10^3/uL (1.2-3.4); Absolute Monocytes 0.6 10^3/uL (0.1-0.6); Absolute Neutrophils 2.6 10^3/uL (1.4-6.5); Hematocrit 32.3 % (39.0-52.0); Mean Corp Hgb Conc. 37.2 g/dL (33.0-37.0); Mean Corpuscular Hgb 32.4 pg (27.0-31.0); Mean Corpuscular Volume 87.3 fL (80.0-94.0); Mean Platelet Volume 9.2 fL (7.4-10.4); Nucleated Red Blood Cells % 0 % (-); Platelet Count 145 10^3/uL (130-400); Red Cell Dist. Width 13.3 % (11.5-14.5)
[2023-12-07 23:22] LABS: ALT (SGPT) 21 U/L (0-50); AST (SGOT) 38 U/L (17-59); Albumin 3.9 g/dl (3.5-5.0); Alkaline Phosphatase 52 U/L (38-126); Blood Urea Nitrogen 26 mg/dl (9-20); Carbon Dioxide 22 mmol/L (22-30); Chloride 93 mmol/L (98-107); Glucose 104 mg/dl (70-99); Lipase 343 U/L (23-300); Sodium 123 mmol/L (135-145); Total Bilirubin 0.7 mg/dl (0.2-1.3); Total Protein 6.2 g/dl (6.3-8.2); eGFR > 60.00
[2023-12-08] VITALS (8 sets, daily range): BP systolic 149–191; BP diastolic 75–92; BMI 22.6
[2023-12-08 02:59] LABS: Troponin I 0.012 ng/ml
[2023-12-08 03:09] LABS: Urine Sodium 6 mmol/L (30-90)
[2023-12-08 03:27] LABS: Osmolality Urine 423 mOsm/kg (300-900)
[2023-12-08 05:49] LABS: Troponin I 0.014 ng/ml
--- NOTE | 2023-12-08 08:42 | ED.GENMED ---
History of Present Illness
General
Chief Complaint: Abdominal Pain
Source: patient and spouse
Exam Limitations: none
Time Seen by Provider: 12/08/23 01:28
Nursing documentation reviewed up to this point in time: agreed with
Travel History
Have you had any contact with someone who has COVID-19?: No
Do you have any symptoms of coronavirus? Fever > 100 degrees, chills, cough, shortness of breath, sore throat, loss of taste or smell, muscle aches, or headache?: No
History of Present Illness
History of Present Illness:
73-year-old male with a past medical history of hypertension, CAD status post stent in September (follows with Dr. Alvarez for cardiology), history of prior pancreatitis who presents to the emergency room with his for evaluation of chest pain.
Patient reports onset of symptoms this evening while he was trying to rest and have been constant since that time. He reports a dull pain in the right pectoral region associated with increased belching. He reports some mild nausea no vomiting. He
has had some chronic issues with abdominal pains and poor appetite, weight loss and has been following with GI as an outpatient (actually scheduled for an endoscopy 12/15/2023)�the symptoms have not acutely changed. He denies any shortness of
breath. He denies any nausea, vomiting, diaphoresis. He denies any swelling or pain in the legs. He denies any other complaints. He does note that he lifted a heavy box of records earlier today but does not recall an acute injury at that time.
Past History
Past History
ED Past Medical History: HTN and Other (left ear tinnitus, hyponatremia, Pancreatitis, internal hemorrhoid); Negative CAD or Hypercholesterolemia
ED Past Surgical History: Other (Hernia repair)
Social History
Tobacco: Non-smoker
Alcohol: None
Personal:
Living: with family
Employment: Employed
Family History
Family History: Hypertension; Negative Diabetes, CAD or Sudden
Review of Systems
Review of Systems
All Other Systems: ROS reviewed and negative except as documented in HPI and ROS
Constitutional: Denies fever or chills
EENT: Denies sore throat or runny nose
Respiratory: Denies cough or trouble breathing
Cardiac: Reports chest pain; Denies palpitations
ABD/GI: Reports abdominal pain (Chronic) and nausea (Chronic); Denies vomiting or diarrhea
: Denies dysuria, frequency or flank pain
Musculoskeletal: Denies neck pain or back pain
Neurological: Denies dizzy or headache
Phy Exam
Physical Exam
Physical Exam:
General: Awake, alert, oriented x3; no acute distress
Head: Normocephalic, atraumatic
Eyes: Conjunctiva normal, sclera anicteric
Throat: Airway intact, handling secretions
Neck: Trachea midline, supple without meningismus
Lungs: Clear to auscultation bilaterally, no wheezing, rales, rhonchi
Heart: Regular rate and rhythm, no murmurs, gallops, or rubs
Chest: Mild tenderness along the lateral margin of the right pectoral region but no rash
Abd: Soft, non distended, nontender
Neuro: Cranial nerves grossly intact, speech fluid
Skin: no rash
Extremities: No edema in extremities, equal pulses in all extremities
Scores
Heart Failure Risk
Heart Failure Risk Score: Not Applicable
Heart Score for Chest Pain Patients
STEMI patient?: No
History: Slightly or Non-Suspicious
ECG: Normal
Age: >/= 65 years
Risk Factors: >/= 3 Risk Factors or History of CAD
Troponin: </= Normal Limit
Heart Score for Chest Pain Patients: 4
Heart Score Risk: 20.3% MACE over next 6 weeks
Withdrawal Assessment of Alcohol
Withdrawal Assessment Completed?: Not applicable
Course
Orders/Labs/Results
Orders:
Orders
12/07/23 22:41
Electrocardiogram (*1) Urgent
Reason for Study: Chest Pain
EKG- Treatment ONCE
12/07/23 22:58
CMP [Comprehensive Metabolic Panel] Urgent
Complete Blood Count/With Diff Urgent
Lipase Urgent
12/08/23 02:05
CR Chest - 2 Views Urgent
Comment:
Reason For Exam: chest pain
12/08/23 02:10
CT Abd/pelvis W Iv Cont Urgent
Comment:
Reason For Exam: upper abd pain, elevated lipase
12/08/23 02:21
Osmolality, Random Urine Urgent
Date Specimen was Collected: 12/08/23
Time Specimen was Collected: 02:12
Troponin I Urgent
Urine Sodium Urgent
Date Specimen was Collected: 12/08/23
Time Specimen was Collected: 02:12
12/08/23 05:15
Troponin I Urgent
Abnormal Lab Results
12/07/23 12/08/23
22:58 02:21
WBC 4.0 L 10^3/uL
(4.8-10.8)
RBC 3.70 L 10^6/uL
(4.70-6.10)
Hgb 12.0 L g/dL
(13.0-18.0)
Hct 32.3 L %
(39.0-52.0)
MCH 32.4 H pg
(27.0-31.0)
MCHC 37.2 H g/dL
(33.0-37.0)
Absolute Lymphs (auto) 0.7 L 10^3/uL
(1.2-3.4)
Lymphocytes % 18.2 L %
(20.5-51.1)
Monocytes % 14.2 H %
(1.7-9.3)
Sodium 123 L mmol/L
(135-145)
Chloride 93 L mmol/L
(98-107)
BUN 26 H mg/dl
(9-20)
Glucose 104 H mg/dl
(70-99)
Total Protein 6.2 L g/dl
(6.3-8.2)
Lipase 343 H U/L
(23-300)
Urine Sodium 6 L mmol/L
(30-90)
12/07/23 22:58
12/07/23 22:58
Vital Signs
Initial and Last Documented VS:
Initial Vital Signs
Resp
22
12/07/23 22:45
Last Documented Vital Signs
Temp Pulse Resp BP Pulse Ox
36.6 C 53 14 149/78 100
12/08/23 03:40 12/08/23 06:10 12/08/23 03:40 12/08/23 06:10 12/08/23 06:10
MDM/Problems Addressed
Differential Diagnosis Includes:
Pectoral strain, costochondritis, GERD, cholecystitis/cholelithiasis, pancreatitis, ulcer, ACS, pneumothorax, pneumonia; very low clinical suspicion for PE (no tachycardia, no tachypnea, no hypoxia, no signs of DVT, no pleuritic symptoms, no
dyspnea, no recent surgery, no malignancy, ect) and very low suspicion for aortic dissection and in my judgment no further workup for these diagnoses is indicated
MDM/Problems Addressed:
73-year-old male presents for evaluation of right sided chest/pectoral pain that started this evening; has been constant for the past few hours. He has had some increased belching, has been dealing with chronic abdominal pains and weight loss and
is following with GI for this. He was hypertensive in triage but his vitals are all normal on my assessment. EKG shows no STEMI. Physical exam as above. Plan to place an IV check labs including a CBC and a CMP, serial troponins. Will check
chest ray. Will send for CT abdomen pelvis as well. Will monitor on telemetry and reassess after the above.
Labs reviewed: CBC shows no clinically significant abnormalities. CMP shows hyponatremia which is a chronic and longstanding issue for which patient is not symptomatic and for which she is following along as an outpatient. His troponins are
negative x 2. His chest x-ray shows no acute disease. CT of the abdomen pelvis no acute disease. Very low suspicion for cardiac chest pain but given his recent stent will refer for cardiology follow-up after this episode. Suspect that is more
likely GI related with associated belching versus a pectoral strain as he did lift a heavy box yesterday. I think he is clinically stable for discharge at this point in time. Will start on PPI. Patient feels comfortable with this plan. Will
follow-up with PCP and with cardiology. We did speak in detail about return precautions and all questions were answered.
Chronic conditions affecting care:
CAD
Acute Exacerbation and/or Progression of Chronic Illness:
Acutely hypertensive resolved without intervention continue to monitor but no additional antihypertensives indicated at present
Acute Exacerbation and/or Progression of Chronic Illness: HTN
*Radiology
Radiology exam reviewed: preliminary read by ED provider and radiology read reviewed
*Pulse Oximetry
Patient hypoxic: no
*EKG
Interpreted by ED Provider?: Yes
Heart Rate: 56
Rate: bradycardiac
Rhythm: sinus
[place]: normal axis
Interval: normal interval
QRS Pattern: left vent hypertrophy
Ischemia: non-specific ST changes
*Critical Care Note
Total Time (30-74mins, 75-104mins- exclusive of procedures): Not Applicable
Data Reviewed
Review of Other/Old Records Reveals: Labs and Records
Source: patient and spouse
Further Testing Considered But Not Given:
Considered need for D-dimer, CTA of the chest but with very low clinical suspicion for PE or aortic dissection in my judgment no emergent indication
ED Attending Note
-
Portions of this chart may have been created with voice recognition software.� Occasional wrong word or��sound alike� substitutions may have occurred due to the inherent limitations of voice recognition software.
Discharge Plan
Departure
Patient Disposition: Home (Routine Discharge)
Date of Disposition: 12/08/23
Time of Disposition: 06:35
Patient with high blood pressure during this ER visit?: Yes
Discharge Problem:
Chest pain
Instructions: Chest Pain DCA Follow Up
Prescriptions:
New
pantoprazole 40 mg tablet,delayed release (DR/EC)
40 mg PO DAILY Qty: 30 0RF
No Action
clonazepam 0.5 MG tablet
0.125 mg PO HSPRN PRN (Reason: anxiety)
spironolactone 25 mg Tablet
25 mg PO DAILY
magnesium glycinate 100 mg Tablet
100 mg PO DAILY
Brilinta 90 mg Tablet
90 mg PO BID Qty: 60 5RF
aspirin [Children's Aspirin] 81 mg Tablet,Chewable
81 mg PO DAILY Qty: 1 0RF
polyethylene glycol 3350 [Miralax] 17 gram Powder In Packet
17 g PO DAILY PRN (Reason: constipation)
atorvastatin 40 mg tablet
40 mg PO .SEE NOTE
Patient Comments:
prescribed for daily usage - pt says 'I throw it in once in awhile'
Referrals:
Sabine Luu MD [Family Provider] - Call in 1-3 days for appt
Haseeb Alvarez MD [Active] - Call in 1-3 days for appt
Activity Restrictions/Additional Instructions:
Thank you for visiting the Emergency Department at [facility].
1. Please schedule a follow up appointment as directed. Call first thing tomorrow morning to make an appointment.
2. If indicated, please take your medications as instructed and indicated on discharge paperwork.
3. If any of your symptoms do not improve, or persist, or become more severe within 6-12 hours, please return to the emergency department for further care.
4. Please return to the emergency department if you develop a headache, neck pain/stiffness, fever greater than 100.4F, chest pain, shortness of breath, persistent nausea, vomiting, slurred speech, difficulty walking, numbness/tingling, weakness,
signs of infection or any other symptoms that are worrisome to you.
Please call [phone] if you have any questions.
Interventions
Interventions:
*Risk Screen - Suicide Last Done: 12/07/23 22:45
*General Assessment Last Done: 12/08/23 01:23
*Neglect/Abuse Screening Last Done: 12/07/23 22:45
ED- Fall Risk Assessment Last Done: 12/08/23 01:23
*ED COVID-19 Vaccine History Last Done: 12/08/23 01:23
*Nursing Disposition Last Done: 12/08/23 06:55
MP-Qqzlgr-Lkqowzdjaq Assessment Last Done: 12/08/23 03:46
Discharge Date and Time
Discharge Date/Time: 12/08/23 06:55
Print Language: ITALIAN
== END 2023-12-08 06:55 | disposition home or self-care (01) ==
LOC: EMR 22:38
PROVIDERS: EMERGENCY PHYSICIAN Emergency Medicine; FAMILY PHYSICIAN Emergency Medicine
DX: R07.89 Other chest pain (principal); I10 Essential (primary) hypertension; I25.10 Atherosclerotic heart disease of native coronary artery without angina pectoris; Z82.49 Family history of ischemic heart disease and other diseases of the circulatory system; Z87.19 Personal history of other diseases of the digestive system; Z95.5 Presence of coronary angioplasty implant and graft
CPT/HCPCS: 99284; 71046; 74177; 80053; 83690; 83935; 84300; 84484; 85025; 93005; Q9967

== ENCOUNTER 2023-12-09 04:46 | Inpatient (IN) | payer MEDICARE, OTHER, SELFPAY ==
[2023-12-08 23:10] VITALS: BP 182/99
[2023-12-08 23:45] LABS: % Basophils 0.9 % (0-2); % Eosinophils 2.2 % (0-6); % Immature Granulocytes 0.7 % (0-0.5); % Lymphocytes 11.3 % (20.5-51.1); % Monocytes 11.1 % (1.7-9.3); % Neutrophils 73.8 % (42.2-75.2); Absolute Eosinophils 0.1 10^3/uL (0-0.7); Absolute Lymphocytes 0.5 10^3/uL (1.2-3.4); Absolute Monocytes 0.5 10^3/uL (0.1-0.6); Absolute Neutrophils 3.3 10^3/uL (1.4-6.5); Hematocrit 32.6 % (39.0-52.0); Hemoglobin 11.9 g/dL (13.0-18.0); Mean Corp Hgb Conc. 36.5 g/dL (33.0-37.0); Mean Corpuscular Hgb 32.6 pg (27.0-31.0); Mean Corpuscular Volume 89.3 fL (80.0-94.0); Mean Platelet Volume 8.7 fL (7.4-10.4); Nucleated Red Blood Cells % 0 % (-); Platelet Count 135 10^3/uL (130-400); Red Blood Cell Count 3.65 10^6/uL (4.70-6.10); Red Cell Dist. Width 13.3 % (11.5-14.5); White Blood Cell Count 4.5 10^3/uL (4.8-10.8)
[2023-12-08 23:59] LABS: ALT (SGPT) 20 U/L (0-50); AST (SGOT) 30 U/L (17-59); Albumin 3.7 g/dl (3.5-5.0); Alkaline Phosphatase 56 U/L (38-126); Blood Urea Nitrogen 24 mg/dl (9-20); Calcium 8.9 mg/dl (8.4-10.2); Carbon Dioxide 26 mmol/L (22-30); Chloride 89 mmol/L (98-107); Glucose 109 mg/dl (70-99); Potassium 4.2 mmol/L (3.5-5.1); Sodium 120 mmol/L (135-145); Total Bilirubin 0.9 mg/dl (0.2-1.3); eGFR > 60.00
[2023-12-09] VITALS (7 sets, daily range): BP systolic 147–175; BP diastolic 72–90; BMI 22.5
[2023-12-09 00:10] LABS: Troponin I 0.015 ng/ml
--- NOTE | 2023-12-09 02:52 | ED.GENMED ---
History of Present Illness
General
Chief Complaint: Blood Pressure Problem
Source: patient
Exam Limitations: none
Time Seen by Provider: 12/09/23 02:33
Travel History
Have you had any contact with someone who has COVID-19?: No
Do you have any symptoms of coronavirus? Fever > 100 degrees, chills, cough, shortness of breath, sore throat, loss of taste or smell, muscle aches, or headache?: No
History of Present Illness
History of Present Illness:
This is a 73 year old male that was seen in the ER last night. States that he had hypertension and was anxious. Patient was discharged home. Vinny patent states that he was having reflux and he took a TUMS and this seemed to help. States that his
BP was going up and he was getting more anxious as he doesn't want to have a stroke. States that he does have some urinary burning. Denies any fever, chills, chest pain, SOB, abd pain, nausea, vomiting, diarrhea, headache, dizziness.
Past History
Past History
ED Past Medical History: CAD, HTN, IA, Psychiatric (Anxiety) and Other (left ear tinnitus, hyponatremia, Pancreatitis, internal hemorrhoid); Negative Hypercholesterolemia
ED Past Surgical History: Cardiac (Stent) and Other (Hernia repair)
Social History
Tobacco: Non-smoker
Alcohol: None
Personal:
Living: with family
Employment: Employed
Family History
Family History: Hypertension; Negative Diabetes, CAD or Sudden
Review of Systems
Review of Systems
All Other Systems: ROS reviewed and negative except as documented in HPI and ROS
Constitutional: Reports no symptoms; Denies fever or chills
EENT: Reports no symptoms
Respiratory: Reports no symptoms; Denies cough or trouble breathing
Cardiac: Reports other (Indigestion); Denies chest pain
ABD/GI: Denies nausea, vomiting or diarrhea
: Reports dysuria; Denies frequency or urgency
Musculoskeletal: Reports no symptoms
Skin: Reports no symptoms
Neurological: Reports no symptoms; Denies dizzy or headache
Psychiatric: Reports anxiety
Phy Exam
General Physical Exam
General Presentation: no apparent distress
General age: appears stated age
General Skin: warm and dry
General Habitus: elderly
General Mental: alert
General Hydration: appears well hydrated
ENT Exam
ENT Exam: TM's normal, pharynx normal and neck supple
Eye Exam
Eye Exam: EOMI
Cardiovascular Exam
Cardiovascular Exam: regular rate/rhythm, no edema, no murmur and normal peripheral pulses
Pulmonary Exam
Pulmonary Exam: lungs clear, no respiratory distress, no rales, chest non tender, no crackles, no rhonchi, no wheezing and no cough
Gastrointestinal Exam
Gastrointestinal Exam: normal bowel sounds, soft, no organomegaly, no pulsatile mass, non distended and tender (Right sided tenderness which patient states that he has had)
Musculoskeletal Exam
Musculoskeletal Exam: full ROM and no edema
Skin Exam
Skin Exam: normal color, warm/dry, no rash and no petechia
Psychiatric Exam
Psychiatric Exam: normal mood/affect
Course
Orders/Labs/Results
Orders:
Orders
12/08/23 23:12
Electrocardiogram (*1) Urgent
Reason for Study: Chest Pain
Cardiac Monitoring- Treatment ONCE
EKG- Treatment ONCE
IV Insert/Care/Rem.- Treatment PRN
O2 Therapy [RESP] Urgent
Titrate/Wean O2 to maintain O2 sat greater than (%): 90
Special Instructions: Maintain sats >/=90%
Pulse Ox/spot Check [RESP] Urgent
Quantity: 1
Special Instructions: ON ROOM AIR
12/08/23 23:30
Complete Blood Count/With Diff Urgent
Comprehensive Metabolic Panel Urgent
Troponin I Urgent
12/09/23 01:00
D-Dimer Urgent
12/09/23 02:51
HydrALAZINE [Apresoline] 5 mg IV NOW STA
Abnormal Lab Results
12/08/23
23:30
WBC 4.5 L 10^3/uL
(4.8-10.8)
RBC 3.65 L 10^6/uL
(4.70-6.10)
Hgb 11.9 L g/dL
(13.0-18.0)
Hct 32.6 L %
(39.0-52.0)
MCH 32.6 H pg
(27.0-31.0)
Absolute Lymphs (auto) 0.5 L 10^3/uL
(1.2-3.4)
Immature Gran % 0.7 H %
(0-0.5)
Lymphocytes % 11.3 L %
(20.5-51.1)
Monocytes % 11.1 H %
(1.7-9.3)
Sodium 120 L mmol/L
(135-145)
Chloride 89 L mmol/L
(98-107)
BUN 24 H mg/dl
(9-20)
Glucose 109 H mg/dl
(70-99)
Total Protein 6.0 L g/dl
(6.3-8.2)
12/08/23 23:30
12/08/23 23:30
Leukopenia Slight, H/H slightly low. Hyponatremia ( corrected Sodium is 120.1) Chloride low, Dehydration. Glucose nonfasting. Troponin 0.015, Total protein slightly low.
Vital Signs
Initial and Last Documented VS:
Initial Vital Signs
Temp Pulse Resp BP Pulse Ox
97.9 F 61 19 182/99 100
12/08/23 23:10 12/08/23 23:10 12/08/23 23:10 12/08/23 23:10 12/08/23 23:10
Last Documented Vital Signs
Temp Pulse Resp BP Pulse Ox
97.9 F 61 19 182/99 100
12/08/23 23:10 12/08/23 23:10 12/08/23 23:10 12/08/23 23:10 12/08/23 23:10
MDM/Problems Addressed
Differential Diagnosis Includes:
Hypertension. Anxiety.
MDM/Problems Addressed:
This is a 73 year old male that comes in with c/o hypertension and indigestion. Patient was seen here last night for the same and dischrage home. Patient return tonight with c/o indigestion and that his BP was going up and that he became anxious.
Will get labs, and monitor BP.
Back into see patient after taking with Dr. Sousa who saw patient last night. Patient Sodium has continued to drop. Patient BP is elevated. Will admit patient for further evaluation and treatment. Hospitalist notified
*Pulse Oximetry
Patient hypoxic: no
*EKG
Interpreted by ED Provider?: Yes
Heart Rate: 55
Rate: bradycardiac
Rhythm: sinus
[place]: normal axis
Interval: normal interval
QRS Pattern: normal QRS
Ischemia: no ischemia
*Critical Care Note
Total Time (30-74mins, 75-104mins- exclusive of procedures): Not Applicable
ED Attending Note
-
Portions of this chart may have been created with voice recognition software.� Occasional wrong word or��sound alike� substitutions may have occurred due to the inherent limitations of voice recognition software.
Discharge Plan
Departure
Patient Disposition: Admit
Date of Disposition: 12/09/23
Time of Disposition: 03:03
Admit to: Telemetry
Presentation/result/management discussed w/ accepting MD/DO: Hospitalist
Patient with high blood pressure during this ER visit?: Yes
Condition: Good
Covid-19: Not Applicable
Discharge Problem:
Hyponatremia, Hypertension
Prescriptions:
No Action
clonazepam 0.5 MG tablet
0.125 mg PO HSPRN PRN (Reason: anxiety)
spironolactone 25 mg Tablet
25 mg PO DAILY
magnesium glycinate 100 mg Tablet
100 mg PO DAILY
Brilinta 90 mg Tablet
90 mg PO BID Qty: 60 5RF
aspirin [Children's Aspirin] 81 mg Tablet,Chewable
81 mg PO DAILY Qty: 1 0RF
polyethylene glycol 3350 [Miralax] 17 gram Powder In Packet
17 g PO DAILY PRN (Reason: constipation)
atorvastatin 40 mg tablet
40 mg PO .SEE NOTE
Patient Comments:
prescribed for daily usage - pt says 'I throw it in once in awhile'
pantoprazole 40 mg tablet,delayed release (DR/EC)
40 mg PO DAILY Qty: 30 0RF
Interventions
Interventions:
*Risk Screen - Suicide Last Done: 12/08/23 23:10
*General Assessment Last Done: 12/08/23 23:10
*Neglect/Abuse Screening Last Done: 12/08/23 23:10
*ED COVID-19 Vaccine History Last Done: 12/08/23 23:10
Discharge Date and Time
Print Language: SERBIAN
[2023-12-09] MEDS: APRESOLINE 5 MG IV (03:33)
[2023-12-09 04:03] LABS: Lipase 264 U/L (23-300)
--- NOTE | 2023-12-09 04:41 | HPS.HSE ---
Family Physician
-
Family Physician: Sabine Luu MD
Chief Complaint
-
Heartburn, High BP
History of Present Illness
Patient is a 73y M with PMH significant for chronic hyponatremia and hypertension who presents to ED complaining of heartburn and concern about his BP. Patient states that he had some heartburn this evening and he took a TUMS. He became
concerned for some reason that this might raise his BP and so he checked his BP at home and it was, indeed, elevated. He presented to the ED for further evaluation. Patient was also seen in the ED last PM with complaints of heartburn and elevated
BP. He was treated and released at that time.
Patient was hospitalized here in September with STEMI and underwent PTCA with stent.
Patient admits that he has stopped several of his medications since that time - for various reasons. Mostly out of concern for potential side effects.
He is an admittedly anxious individual. He takes clonazepam as needed for sleep, but is on no maintenance anxiolytic / depression medication.
Medical History
Past Medical History
Past Medical History: Reports Other
Additional Past Medical History:
ASCVD
Hypertension
Chronic Hyponatremia
CKD III
Anxiety
Past Surgical History: Reports Other
Additional Past Surgical History:
PTCA with Stent (09/2023)
Herniorrhaphy
Social History
Tobacco: Non-smoker
Alcohol: None
Drug: None
Family History
Family History: Not pertinent
Allergies / Home Medications
Allergies reflects when Allergies were last updated in [employer].
Home Medications with original date entered in [employer]
Allergy/Medication List:
Allergies
Allergy/AdvReac Type Severity Reaction Status Date / Time
hydrochlorothiazide Allergy sodium Verified 12/08/23 23:10
depletion
Home Medications
clonazepam 0.5 mg tablet 0.125 mg PO HSPRN PRN anxiety 10/20/15
spironolactone 25 mg tablet 25 mg PO DAILY Blood Pressure 09/23/23
aspirin 81 mg chewable tablet (Children's Aspirin) 81 mg PO DAILY #1 tab 09/25/23
ticagrelor 90 mg tablet (Brilinta) 90 mg PO BID #60 tabs 09/25/23
pantoprazole 40 mg tablet,delayed release 40 mg PO DAILY #30 tabs 12/08/23
Review of Systems
-
History Source: Patient
A 12 point ROS was completed and negative except as noted: Yes
Constitutional: Reports Fatigue; Denies Fever or Chills
EENT: Denies Sore Throat
Respiratory: Reports Trouble Breathing; Denies Cough
Cardiac: Denies Chest Pain, Diaphoresis, Palpitations or Syncope
Abdomen/GI: Reports Other (Heartburn); Denies Abdominal Pain, Nausea or Vomiting
: Denies Dysuria or Frequency
Musculoskeletal: Denies Joint Pain or Edema
Neurological: Denies Dizzy, Headache, Weakness or Numbness
Psych: Reports Anxiety
Physical Exam
Vital Signs
Vital Signs
Temp Pulse Resp BP Pulse Ox
97.9 F 54 19 157/75 100
12/08/23 23:10 12/09/23 03:33 12/08/23 23:10 12/09/23 03:33 12/08/23 23:10
Physical Exam
General: Other (Anxious 73y M in no acute distress.)
HEENT: Moist mucous membranes and PERRLA
Respiratory: Clear; No Wheezes, Rales or Rhonchi
Cardiac: S1/S2 and Regular Rhythm; No Murmur
GI: Soft, Non Tender, Non Distended and Normal Bowel Sounds
Musculoskeletal: No Clubbing, No Cyanosis and No Edema
Neuro: AO x 3 and Nonfocal/grossly intact
Laboratory Results
-
12/08/23 23:30
12/08/23 23:30
Laboratory Results
Total Bilirubin 0.9 mg/dl (0.2-1.3) 12/08/23 23:30
AST 30 U/L (17-59) 12/08/23 23:30
ALT 20 U/L (0-50) 12/08/23 23:30
Alkaline Phosphatase 56 U/L (38-126) 12/08/23 23:30
Troponin I 0.015 ng/ml 12/08/23 23:30
Lipase 264 U/L (23-300) 12/08/23 23:30
Impression/Plan
-
A/P: Patient is a 73y M with PMH significant for ASCVD, hypertension and hyponatremia who presented to the ED as he was concerned that a TUMS may have raised his BP.
Acute on Chronic Hyponatremia
- Admit for further evaluation and treatment.
- Incidentally noted on labs - doubt this is related to his current presentation.
- Given decrease will give 3% saline as he has received in the past.
- Follow for return to baseline (closer to 128).
- Nephrology evaluation.
Anxiety
- This is his primary issue.
- Patient becomes fixated with possible adverse effects and monitoring his BP.
- Continue PRN clonazepam.
- Patient would likely benefit from SNRI or similar for long acting treatment.
Benign Hypertension
- BP much improved after single dose of hydralazine in the ED (and more likely with time).
- Would resume metoprolol given his recent STEMI.
- Trial of losartan in lieu of lisinopril given his concerns re: the latter.
- Continue spironolactone.
- Adjust regimen as needed for adequate control.
ASCVD
- s/p STEMI in 09/2023
- Continue DAPT. Resume metoprolol.
- Would also try to convince patient to resume statin, but will avoid re-introducing too many meds at once for now.
GERD
- Stable. Continue daily PPI.
CKD III
- Stable. Renal function is at baseline. Follow for any changes.
DVT Prophylaxis: Lovenox
Code Status: Full
[2023-12-09 04:50] LABS: D-Dimer < 0.27 ug/mlFEU (0.00-0.50)
[2023-12-09] MEDS: SODIUM CHLORIDE 3% 250 IV ×2 (06:36→22:26)
[2023-12-09] MEDS: ALDACTONE 25 MG PO (07:19)
[2023-12-09] MEDS: TOPROL XL 25 MG PO (07:19)
[2023-12-09] MEDS: PROTONIX 40 MG PO (07:20)
[2023-12-09] MEDS: BRILINTA 90 MG PO ×2 (07:20→19:56)
[2023-12-09] MEDS: COZAAR 25 MG PO (07:20)
[2023-12-09] MEDS: LOW STRENGTH ASPIRIN 81 MG PO (07:20)
[2023-12-09 07:41] LABS: Urine Albumin Negative (Neg - Trace); Urine Bilirubin Negative (Negative); Urine Character Clear (Clear); Urine Color Yellow; Urine Glucose Negative (Negative); Urine Ketone Negative (Negative); Urine Leukocyte Negative (Negative); Urine Nitrite Negative (Negative); Urine Occult Blood Negative (Negative); Urine Urobilinogen Negative (Neg - 1+)
[2023-12-09 10:35] LABS: Osmolality Urine 184 mOsm/kg (300-900)
[2023-12-09 10:51] LABS: Urine Sodium 38 mmol/L (30-90)
--- NOTE | 2023-12-09 11:45 | W.CON.NEPH ---
Consultation
-
Date/Time Consultation Requested: 12/09/23618
Date/Time Consultation Performed: 12/09/23 0934
Requesting Provider: Perez Anton
Performing Provider: Jenni Cordova
Reason for Consultation: Hypoantremia
Medical History
-
Chief Complaint: high BPs
History of Present Illness:
Mr. Hernández is a 73YOM with PMH of hypertension on BB, Aldactone for primary hyperaldo, anxiety on clonazepam, h/o thiazide induced hyponatremia, chronic hyponatremia required samsca and hyperotonic IVF, gout, h/o STEMI s/p PCI of RCA in 09/2023
since then on brillinta and asa presented to ER this am with complaining of heartburn and concern about his BP. Patient states that he had some heartburn last evening and he took a TUMS. He became concerned for some reason that this might raise
his BP and so he checked his BP at home and it was, indeed, elevated at 200. He presented to the ED for further evaluation. Patient was also seen in the ED last PM with complaints of heartburn and elevated BP. He was treated and released at that
time. Patient admits that he has stopped several of his medications since that time - for various reasons. Mostly out of concern for potential side effects.
labs noted sodium low at 120, cr 1.2 baseline hence nephrology consulted.He follows Dr Ritter and has f/u on 01/07/24. Pt reports following FR as advised but food intake is less. He has no n/v. Lose BM after constipation resolved. No dizziness but
mild gait issues seem chronic.
Past Medical History
Anxiety
Depression
HTN (mineralocorticoid component)
chronic hyponatremia
CKD 3a
gout
pancreatitis
liver cyst
Lumbar degenerative disc disease
generalized anxiety disorder
spinal stenosis
myocardial infarction 09/2023
BPH
Past Surgical History: Other (hernia repair cardiac stent)
Social History
Tobacco: Non-Smoker
Alcohol: None
Personal:
Living: With Family
Employment: Employed (in [employer])
Family History
Family History: Not Pertinent
Allergies / Home Medications
Allergy/AdvReac Type Severity Reaction Status Date / Time
hydrochlorothiazide Allergy sodium Verified 12/08/23 23:10
depletion
�Medication �Instructions �Recorded �Confirmed �Type
clonazepam 0.5 mg tablet 0.25 mg PO HSPRN PRN anxiety 10/20/15 12/09/23 History
spironolactone 25 mg tablet 25 mg PO DAILY Blood Pressure 09/23/23 12/09/23 History
aspirin 81 mg chewable tablet 81 mg PO DAILY #1 tab 09/25/23 12/09/23 Rx
(Children's Aspirin)
ticagrelor 90 mg tablet (Brilinta) 90 mg PO BID #60 tabs 09/25/23 12/09/23 Rx
pantoprazole 40 mg tablet,delayed 40 mg PO DAILY #30 tabs 12/08/23 12/09/23 Rx
release
magnesium glycinate 100 mg tablet 100 mg PO DAILY 12/09/23 12/09/23 History
metoprolol succinate 25 mg 25 mg PO DAILY 12/09/23 12/09/23 History
tablet,extended release 24 hr
Review of Systems
-
All complete 12 point ORS have been inquired and found negative other than stated in HPI
Physical Exam
Vital Signs
Vital Signs
Temp Pulse Resp BP Pulse Ox
97.9 F 56 15 172/72 99
12/08/23 23:10 12/09/23 09:45 12/09/23 09:45 12/09/23 08:00 12/09/23 09:45
Lab Results
WBC 4.5 10^3/uL (4.8-10.8) L 12/08/23 23:30
RBC 3.65 10^6/uL (4.70-6.10) L 12/08/23 23:30
Hgb 11.9 g/dL (13.0-18.0) L 12/08/23 23:30
Hct 32.6 % (39.0-52.0) L 12/08/23 23:30
Plt Count 135 10^3/uL (130-400) 12/08/23 23:30
Sodium 120 mmol/L (135-145) L 12/08/23 23:30
Potassium 4.2 mmol/L (3.5-5.1) 12/08/23 23:30
Chloride 89 mmol/L (98-107) L 12/08/23 23:30
Carbon Dioxide 26 mmol/L (22-30) 12/08/23 23:30
BUN 24 mg/dl (9-20) H 12/08/23 23:30
Creatinine 1.2 mg/dL (0.7-1.3) 12/08/23:30
eGFR > 60.00 12/08/23 23:30
Glucose 109 mg/dl (70-99) H 12/08/23 23:30
Calcium 8.9 mg/dl (8.4-10.2) 12/08/23:30
Albumin 3.7 g/dl (3.5-5.0) 12/08/23 23:30
CT abd pelvis with ocntrast :
IMPRESSION:
1. No significant acute abnormality identified in the abdomen or pelvis, as described above.
2. Probable mild ileus.
3. Moderate diffuse colonic stool burden may reflect constipation.
CXR:
IMPRESSION:
No acute cardiopulmonary process.
Physical Exam
General: Awake, Alert, Oriented, AOx3, No Distress and Nontoxic
HEENT: EOMI, Anicteric and No JVD
Respiratory: Clear, Normal Excursion and Nonlabored Respirations
Cardiac: S1/S2 and Regular Rate/Rhythm
Abdomen: Soft, Nontender and Nondistended
Musculoskeletal: No Cyanosis and No Edema
Skin: No Rash
Neuro: Nonfocal/Grossly Intact
Psych: Mood/afflect pleasant, Insight/judgement good and Appropriate
Data Reviewed
-
Radiology: Report Reviewed by me and Discussed with Patient
Labs: Labs Reviewed by me and Discussed with Patient
Assessment/Plan
-
IMP:
Acute on Chronic Hyponatremia
Anxiety
Accelerated Hypertension
ASCVD
- s/p STEMI in 09/2023
GERD
CKD III-cr 1.2
constipation
essential hypertension with history of hyperaldosteronism
PLan:
A/w high BPs and anxiety, was in ER earlier for heart burn
Acute on chr hyponatremia-U osmo is low at 184 some ADH activity and U na normal at 38
he probably has high free water intake, need strict FR 40 ounces/day
cont 3% saline for now and repeat labs q8hrs
goal to get 128 by am (baseline)
BP are high back on BB, low dose losartan and cont Aldactone
stable renal function follow post contrast 12/07
benefit from anxiolytic since anxiety contributing to his high Bps
d/w pt and nursing
--- NOTE | 2023-12-09 13:16 | W.PN.UPDATE ---
Update Note
Progress Note Update
Nonbillable note
Admitted by agent contract clerk early AM
Currently asymptomatic
receiving 3% saline
Assessment:
Acute on Chronic Hyponatremia
- check Uosms, Sosms, Natalia
- 3% saline, follow Na levels. Most recently 125. Baseline is 128 or higher.
- Nephrology following.
Anxiety
- This is his primary issue.
- Patient becomes fixated with possible adverse effects and monitoring his BP.
- Continue PRN clonazepam.
- Patient would likely benefit from SNRI or similar for long acting treatment. May also benefit from therapy
Benign Hypertension
- continue Metoprolol and Losartan. Continue Aldactone
- titrate as needed
ASCVD
- s/p STEMI in 09/2023
- Continue ASA. Resume metoprolol.
- may hold Brilinta as scheduled for OP EGD 12/14. will d/w Cards/GI
- eventually resume a statin.
GERD
- Stable. Continue daily PPI.
- OP EGD 12/14. will d/w Cards/GI
CKD III
- Stable. Renal function is at baseline. Follow for any changes.
DVT Prophylaxis: Lovenox
Code Status: Full
[2023-12-09 13:17] LABS: Sodium 125 mmol/L (135-145)
--- NOTE | 2023-12-09 15:13 | PTCARENOTE ---
Received patient from ED via stretcher. AAOx3, ambulated to bed. Assessed and oriented to room. filler picker reading NSR. Spouse at bedside. Call jackson in close reach.
[2023-12-09 20:24] LABS: Sodium 125 mmol/L (135-145)
[2023-12-09] MEDS: KLONOPIN 0.125 MG PO (22:07)
[2023-12-10] VITALS (8 sets, daily range): BP systolic 160–191; BP diastolic 82–101; BMI 22.3
[2023-12-10 04:23] LABS: Osmolality Urine 264 mOsm/kg (300-900)
[2023-12-10 05:53] LABS: Hematocrit 33.9 % (39.0-52.0); Hemoglobin 12.3 g/dL (13.0-18.0); Mean Corp Hgb Conc. 36.3 g/dL (33.0-37.0); Mean Corpuscular Hgb 32.6 pg (27.0-31.0); Mean Corpuscular Volume 89.9 fL (80.0-94.0); Mean Platelet Volume 9.1 fL (7.4-10.4); Platelet Count 146 10^3/uL (130-400); Red Blood Cell Count 3.77 10^6/uL (4.70-6.10); Red Cell Dist. Width 13.3 % (11.5-14.5); White Blood Cell Count 4.4 10^3/uL (4.8-10.8)
[2023-12-10 06:19] LABS: Blood Urea Nitrogen 20 mg/dl (9-20); Calcium 8.8 mg/dl (8.4-10.2); Carbon Dioxide 24 mmol/L (22-30); Chloride 100 mmol/L (98-107); Estimated Creatinine Clearance 51 ml/min; Glucose 83 mg/dl (70-99); Potassium 4.6 mmol/L (3.5-5.1); Sodium 129 mmol/L (135-145); eGFR > 60.00
[2023-12-10] MEDS: ALDACTONE 25 MG PO (08:04)
[2023-12-10] MEDS: LOW STRENGTH ASPIRIN 81 MG PO (08:04)
[2023-12-10] MEDS: COZAAR 25 MG PO (08:05)
[2023-12-10] MEDS: BRILINTA 90 MG PO ×2 (08:06→20:27)
[2023-12-10] MEDS: TOPROL XL PO (08:06)
[2023-12-10] MEDS: PROTONIX 40 MG PO (08:06)
--- NOTE | 2023-12-10 11:19 | W.PN.HOSP.TC ---
Today's Communication/Plan
-
await nephrology recs
await repeat BP
Assessment / Plan
Assessment / Plan
Assessment:
Acute on Chronic Hyponatremia
- suspected underlying high free water intake
- s/p 3% saline; Na level 129
- continue OFR
- may consider Samsca or Lasix
- Nephrology following.
Anxiety
- This is his primary issue.
- Patient becomes fixated with possible adverse effects and monitoring his BP.
- Continue PRN clonazepam.
- Patient would likely benefit from SNRI or similar for long acting treatment. May also benefit from outpatient psych therapy
Benign Hypertension
- continue Losartan and Aldactone
- hold Metoprolol due to bradycardia
- titrate as needed
ASCVD
- s/p STEMI in 09/2023
- hold Metoprolol due to bradycardia
- Continue ASA/Brillinta
- eventually resume a statin.
GERD
- Stable. Continue daily PPI.
- OP EGD 01/13
CKD III
- Stable. Renal function is at baseline. Follow for any changes.
DVT Prophylaxis: Lovenox
Code Status: Full
Anticipated Discharge: Within 24 hours
Subjective/Interval History
-
Date of Service: December 10, 2023
Objective Data
-
Labs:
Laboratory Results
12/10/23
04:57
WBC 4.4 L
Hgb 12.3 L
Hct 33.9 L
Plt Count 146
Sodium 129 L
Potassium 4.6
Chloride 100
Carbon Dioxide 24
BUN 20
Creatinine 1.1
Glucose 83
Calcium 8.8
Vital Signs:
Vital Signs
Temp Pulse Resp BP Pulse Ox
97.6 F 45 16 165/82 100
06/05/24 07:15 12/10/23 08:06 12/10/23 07:15 12/10/23 07:15 12/10/23 08:00
I&O
12/09/23 12/10/23 12/11/23
06:59 06:59 06:59
Intake Total 480 / 480
Output Total 425 / 425
Balance 55 / 55
Data Reviewed
-
Total Time Spent with Patient (in minutes): 42
Labs: Labs Reviewed by me
--- NOTE | 2023-12-10 13:13 | W.PN.NEPH.PH ---
Today's Communication / Plan
-
lasix
Assessment/Plan
-
IMP:
Acute on Chronic Hyponatremia
Anxiety
Accelerated Hypertension
ASCVD
- s/p STEMI in 09/2023
GERD
CKD III-cr 1.2
constipation
essential hypertension with history of hyperaldosteronism
Plan:
add lasix 20mg daily
continue losartan
follow BMP
-
-
Date of Service: December 10, 2023
CC / HPI / ROS
-
Chief Complaint:
hyponatremia
History of Present Illness:
Na up to 129 with 3%
BP high still
Cr 1.1
Review of Systems:
no CP/SOB
Labs
-
Labs:
WBC 4.4 10^3/uL (4.8-10.8) L 12/10/23 04:57
RBC 3.77 10^6/uL (4.70-6.10) L 12/10/23 04:57
Hgb 12.3 g/dL (13.0-18.0) L 12/10/23 04:57
Hct 33.9 % (39.0-52.0) L 12/10/23 04:57
Plt Count 146 10^3/uL (130-400) 12/10/23 04:57
Sodium 129 mmol/L (135-145) L 12/10/23 04:57
Potassium 4.6 mmol/L (3.5-5.1) 12/10/23 04:57
Chloride 100 mmol/L (98-107) 12/10/23 04:57
Carbon Dioxide 24 mmol/L (22-30) 12/10/23 04:57
BUN 20 mg/dl (9-20) 12/10/23 04:57
Creatinine 1.1 mg/dL (0.7-1.3) 12/10/23 04:57
eGFR > 60.00 12/10/23 04:57
Glucose 83 mg/dl (70-99) 12/10/23 04:57
Calcium 8.8 mg/dl (8.4-10.2) 12/10/23 04:57
Albumin 3.7 g/dl (3.5-5.0) 12/08/23 23:30
Physical Exam
-
Vital Signs:
Vital Signs
Temp Pulse Resp BP Pulse Ox
97.6 F 69 20 172/101 100
12/10/23 11:40 12/10/23 11:40 12/10/23 11:40 12/10/23 11:40 12/10/23 11:40
Cardiovascular:: Regular rate and rhythm
Respiratory:: Bilateral: Coarse
Lung Excursion:: Normal
Abdomen:: Nontender and Soft
Bowel Sounds:: Normal
Extremity Edema:: None: Bilateral:
[2023-12-10] MEDS: LASIX 20 MG PO (14:00)
[2023-12-10] MEDS: PEPCID 20 MG PO (16:38)
--- NOTE | 2023-12-10 17:38 | CM ---
Isaías was admitted from home where he lives with his . He had an VT 3 weeks LOAN ANALYST and has been worried about this since that time. He is (I) amb and adl's; has been walking with his outside when the weather is good.
Plan: Case management will continue to follow and assist with discharge planning. Anticipate return home with spouse when medically cleared.
[2023-12-11 03:23] VITALS: BP 168/86
[2023-12-11 06:00] VITALS: BMI 22.0
[2023-12-11 06:04] LABS: Blood Urea Nitrogen 23 mg/dl (9-20); Calcium 9.1 mg/dl (8.4-10.2); Carbon Dioxide 23 mmol/L (22-30); Chloride 98 mmol/L (98-107); Estimated Creatinine Clearance 43 ml/min; Glucose 81 mg/dl (70-99); Potassium 4.3 mmol/L (3.5-5.1); Sodium 129 mmol/L (135-145); eGFR 58.37
[2023-12-11 07:26] VITALS: BP 181/92
[2023-12-11 08:26] VITALS: BP 181/92
[2023-12-11] MEDS: PROTONIX 40 MG PO (08:42)
[2023-12-11] MEDS: LOW STRENGTH ASPIRIN 81 MG PO (08:43)
[2023-12-11] MEDS: BRILINTA 90 MG PO (08:43)
[2023-12-11] MEDS: PEPCID 20 MG PO (08:43)
[2023-12-11] MEDS: LASIX 20 MG PO (08:44)
[2023-12-11] MEDS: COZAAR 25 MG PO (08:44)
[2023-12-11] MEDS: ALDACTONE 25 MG PO (08:44)
[2023-12-11] MEDS: TOPROL XL PO (08:45)
--- NOTE | 2023-12-11 09:20 | W.PN.HOSP.TC ---
Today's Communication/Plan
-
dc to home
Assessment / Plan
Assessment / Plan
Assessment:
Acute on Chronic Hyponatremia
- suspected underlying high free water intake
- s/p 3% saline; Na level 129
- continue OFR
- continue low dose Lasix
- repeat BMP next week and PCP f/u
Anxiety
- This is his primary issue.
- Patient becomes fixated with possible adverse effects and monitoring his BP.
- Continue PRN clonazepam.
- Patient would likely benefit from SNRI or similar for long acting treatment. May also benefit from outpatient psych therapy. He is seeing psych tomorrow.
Benign Hypertension
- continue Losartan and Aldactone, Lasix
- stop Metoprolol due to bradycardia
- titrate as needed
ASCVD
- s/p STEMI in 09/2023
- stop Metoprolol due to bradycardia
- Continue ASA/Brilinta
- eventually resume a statin.
GERD
- Stable. Continue daily PPI + h2 sandrine
- OP EGD planned for 01/13
CKD III
- Stable. Renal function is at baseline. Follow for any changes.
DVT Prophylaxis: Lovenox
Code Status: Full
More than 30 minutes spent in discharge including
Final examination of the patient
Summarizing hospital stay
Instructions for continuing care to all relevant caregivers
Preparation of discharge records, prescriptions, and referral forms
Total time spent (in minutes): 42
Anticipated Discharge: Today
Subjective/Interval History
-
Date of Service: December 11, 2023
anxious, denies any new complaints
Na stable 129
Objective Data
-
Labs:
Laboratory Results
12/11/23
05:00
Sodium 129 L
Potassium 4.3
Chloride 98
Carbon Dioxide 23
BUN 23 H
Creatinine 1.3
Glucose 81
Calcium 9.1
Vital Signs:
Vital Signs
Temp Pulse Resp BP Pulse Ox
97.7 F 74 20 171/125 100
12/11/23 07:26 12/11/23 08:44 12/11/23 07:26 12/11/23 08:44 12/11/23 07:26
I&O
12/10/23 12/11/23 12/12/23
06:59 06:59 06:59
Intake Total 480 / 480 0 / 0
Output Total 425 / 425
Balance 55 / 55 0 / 0
Physical Exam
-
General: No Apparent Distress
HEENT: Normocephalic and Atraumatic
Respiratory: Negative Wheezes
Cardiac: Regular Rhythm
GI: Soft
Genito-urinary: No Costovertebral Tender
Neuro: AO x 3
Psych: Calm
Data Reviewed
-
Total Time Spent with Patient (in minutes): 42
Labs: Labs Reviewed by me
--- NOTE | 2023-12-11 09:24 | W.DS.TRANS ---
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
-
Discharge Instructions:
Discharge Diagnosis/Procedures hyponatremia, anxiety, elevated BP
Diet Regular
Activity As tolerated
Blood Work BMP Friday - script given
Instructions:
Stand-Alone Forms:
Changes to Home Medications: Yes
Discharge Medications:
DC Medications w/original date entered in [facility]
clonazepam 0.5 mg tablet 0.25 mg PO HSPRN PRN anxiety 10/20/15
aspirin 81 mg chewable tablet (Children's Aspirin) 81 mg PO DAILY #1 tab 09/25/23
ticagrelor 90 mg tablet (Brilinta) 90 mg PO BID #60 tabs 09/25/23
pantoprazole 40 mg tablet,delayed release 40 mg PO DAILY #30 tabs 12/08/23
famotidine 20 mg tablet 20 mg PO DAILY #30 tabs 12/11/23
furosemide 20 mg tablet 20 mg PO DAILY #30 tabs 12/11/23
losartan 25 mg tablet 25 mg PO DAILY #30 tabs 12/11/23
spironolactone 25 mg tablet 25 mg PO DAILY Blood Pressure #30 tabs 12/11/23
Home Medication Changes
BB stopped
ARB and Lasix started
Pepcid started
Pending Results: No
Total time spent discharging patient (in min): 42
[2023-12-11 09:56] VITALS: BP 160/87
--- NOTE | 2023-12-11 11:31 | W.PN.NEPH.PH ---
Today's Communication / Plan
-
dc
Assessment/Plan
-
IMP:
Acute on Chronic Hyponatremia
Anxiety
Accelerated Hypertension
ASCVD
- s/p STEMI in 09/2023
GERD
CKD III-cr 1.2
constipation
essential hypertension with history of hyperaldosteronism
Plan:
continue lasix 20mg daily
continue losartan
follow BMP next week
dc
-
-
Date of Service: December 11, 2023
CC / HPI / ROS
-
Chief Complaint:
hyponatremia
History of Present Illness:
Na up to 129 stable
BP high still
Cr 1.3
Review of Systems:
no CP/SOB
Labs
-
Labs:
WBC 4.4 10^3/uL (4.8-10.8) L 12/10/23 04:57
RBC 3.77 10^6/uL (4.70-6.10) L 12/10/23 04:57
Hgb 12.3 g/dL (13.0-18.0) L 12/10/23 04:57
Hct 33.9 % (39.0-52.0) L 12/10/23 04:57
Plt Count 146 10^3/uL (130-400) 12/10/23 04:57
Sodium 129 mmol/L (135-145) L 12/11/23 05:00
Potassium 4.3 mmol/L (3.5-5.1) 12/11/23 05:00
Chloride 98 mmol/L (98-107) 12/11/23 05:00
Carbon Dioxide 23 mmol/L (22-30) 12/11/23 05:00
BUN 23 mg/dl (9-20) H 12/11/23 05:00
Creatinine 1.3 mg/dL (0.7-1.3) 12/11/23 05:00
eGFR 58.37 12/11/23 05:00
Glucose 81 mg/dl (70-99) 12/11/23 05:00
Calcium 9.1 mg/dl (8.4-10.2) 12/11/23 05:00
Albumin 3.7 g/dl (3.5-5.0) 12/08/23 23:30
Physical Exam
-
Vital Signs:
Vital Signs
Temp Pulse Resp BP Pulse Ox
97.9 F 62 18 160/87 100
12/11/23 09:56 12/11/23 09:56 12/11/23 09:56 12/11/23 09:56 12/11/23 09:56
Cardiovascular:: Regular rate and rhythm
Respiratory:: Bilateral: CTA
Lung Excursion:: Normal
Abdomen:: Nontender and Soft
Bowel Sounds:: Normal
Extremity Edema:: None: Bilateral:
--- NOTE | 2023-12-11 11:48 | CM ---
Isaías was discharged to home today. No needs identified.
Plan: Discharge to home with .
PCP: Dr. Luu [phone]
[2023-12-11 15:55] LABS: Hepatitis C Antibody Negative (Negative)
== END 2023-12-11 11:43 | disposition home or self-care (01) | DRG 641 ==
LOC: 4 EAST ACU 04:46
PROVIDERS: Clinical Nurse Specialist Family Health; ADMITTING PHYSICIAN Hospitalist; ATTENDING PHYSICIAN Internal Medicine; CONSULT PHYSICIAN Internal Medicine; EMERGENCY PHYSICIAN Emergency Medicine; FAMILY PHYSICIAN Emergency Medicine
DX: E87.1 Hypo-osmolality and hyponatremia (principal); I12.9 Hypertensive chronic kidney disease with stage 1 through stage 4 chronic kidney disease, or unspecified chronic kidney disease; N18.31 Chronic kidney disease, stage 3a; K21.9 Gastro-esophageal reflux disease without esophagitis; F41.1 Generalized anxiety disorder; I25.10 Atherosclerotic heart disease of native coronary artery without angina pectoris; M10.9 Gout, unspecified; F32.A Depression, unspecified; N40.0 Benign prostatic hyperplasia without lower urinary tract symptoms; M48.00 Spinal stenosis, site unspecified; M51.36 Other intervertebral disc degeneration, lumbar region; K76.89 Other specified diseases of liver; Z95.5 Presence of coronary angioplasty implant and graft; I25.2 Old myocardial infarction; Z79.82 Long term (current) use of aspirin; Z79.02 Long term (current) use of antithrombotics/antiplatelets; Z88.8 Allergy status to other drugs, medicaments and biological substances
CPT/HCPCS: 80048; 80053; 81003; 83690; 83935; 84295; 84300; 84484; 85025; 85027; 85379; 86803; 93005; 96374; 99285

== ENCOUNTER 2023-12-12 10:39 | Emergency (ER) | payer MEDICARE, OTHER, SELFPAY ==
[2023-12-12 10:42] VITALS: BP 140/80
[2023-12-12 10:45] VITALS: BP 140/80
[2023-12-12 10:48] VITALS: BMI 22.4
[2023-12-12 11:00] VITALS: BP 136/81
[2023-12-12 11:04] LABS: % Basophils 0.9 % (0-2); % Eosinophils 1.6 % (0-6); % Immature Granulocytes 0.4 % (0-0.5); % Lymphocytes 13.5 % (20.5-51.1); % Monocytes 10.9 % (1.7-9.3); % Neutrophils 72.7 % (42.2-75.2); Absolute Eosinophils 0.1 10^3/uL (0-0.7); Absolute Lymphocytes 0.6 10^3/uL (1.2-3.4); Absolute Monocytes 0.5 10^3/uL (0.1-0.6); Absolute Neutrophils 3.3 10^3/uL (1.4-6.5); Hematocrit 35.2 % (39.0-52.0); Hemoglobin 13.1 g/dL (13.0-18.0); Mean Corp Hgb Conc. 37.2 g/dL (33.0-37.0); Mean Corpuscular Hgb 32.2 pg (27.0-31.0); Mean Corpuscular Volume 86.5 fL (80.0-94.0); Mean Platelet Volume 8.7 fL (7.4-10.4); Nucleated Red Blood Cells % 0 % (-); Platelet Count 128 10^3/uL (130-400); Red Blood Cell Count 4.07 10^6/uL (4.70-6.10); Red Cell Dist. Width 13.4 % (11.5-14.5); White Blood Cell Count 4.5 10^3/uL (4.8-10.8)
--- NOTE | 2023-12-12 11:12 | ED.GENMED ---
History of Present Illness
General
Chief Complaint: Cardiac Symptoms
Time Seen by Provider: 12/12/23 10:51
Travel History
Have you had any contact with someone who has COVID-19?: No
Do you have any symptoms of coronavirus? Fever > 100 degrees, chills, cough, shortness of breath, sore throat, loss of taste or smell, muscle aches, or headache?: No
History of Present Illness
History of Present Illness:
HPI: Patient presents due to a syncopal event/near syncopal event while waiting for the doctor at the doctor's office. He was at the doctor's office for follow-up from a recent hospitalization. He states he also recently had an NH and at that time
had chest pain but currently has no chest pain. He did not eat or take his medications earlier today. He was found to be hypotensive and bradycardic at the office. Currently he is hypertensive but mildly bradycardic. He also states that he took
0.25 mg of Klonopin last night.
EXAM:
GENERAL: Well appearing in no distress, he is normal to slightly hypertensive.
HEENT: Moist oral mucosa
CARDIOVASCULAR: No murmurs, mildly bradycardic heart rate, regular rhythm, No chest wall tenderness
PULMONARY: No respiratory distress, breath sounds are clear and equal
ABDOMEN: Soft with no peritoneal signs, no tenderness
NEUROLOGIC: Excellent strength all extremities, no coordination deficits
PSYCHIATRIC: Appropriate mental status, normal insight and judgement
EXTREMITIES: Nontender, no edema, moves all extremities equally
SKIN: No rash, no lesions
TIME OF INITIAL ENCOUNTER: 11:05 AM
NUMBER AND COMPLEXITY OF PROBLEMS ADDRESSED AT THE ENCOUNTER
� Chronic conditions affecting care: High blood pressure on losartan, Aldactone, and Lasix, anxiety/depression, NH/CAD, thiazide induced hyponatremia, CKD
� Acute Exacerbation and/or Progression of Chronic Illness:
� Differential Diagnosis includes:
AMOUNT AND/OR COMPLEXITY OF DATA TO BE REVIEWED AND ANALYZED
� I performed an independent evaluation of and my interpretation is:
EKG: Sinus 53, nonspecific ST abnormality, no significant change from 654
CT:
X-rays:
Laboratory Studies: Sodium slightly low at 127 however this is very comparable to recent numbers, white count 4.5, hemoglobin 13.1, troponin 0.020
Other:
� Review of other/old records: The patient was admitted here until yesterday with acute on chronic hyponatremia and was given 3% saline. He had a STEMI in September 2023.
� Clinical information was obtained by an independent historian: I reviewed the notes from PMDs office which indicates the patient was there for follow-up after an admission from 12 07 through 12 10 at [facility].
� Prescriptions/Medications Considered but not given:
� Further testing considered but not performed:
RISK OF COMPLICATIONS AND/OR MORBIDITY OR MORTALITY OF PATIENT MANAGEMENT
� Social determinants of health affecting care: Lives at home
� Discussion with other providers: Dr. Myles to discuss his medications including Lasix, spironolactone, and losartan. She recommends to change Lasix dosing to every other day and to follow-up their office on Friday by calling
and to check blood pressures at home.
� Escalation of care including admission/observation vs risk of discharge considered: I reviewed his old record orthostatic vital signs were checked and are unremarkable. s as summarized above. He is currently bradycardic but
hypertensive. He was hypotensive in the office. He did not take his antihypertensives yet today. Blood pressures before and after IV fluids were in the 130s systolic.
Past History
Past History
ED Past Medical History: CAD, HTN, NH, Psychiatric (Anxiety) and Other (left ear tinnitus, hyponatremia, Pancreatitis, internal hemorrhoid); Negative Hypercholesterolemia
ED Past Surgical History: Cardiac (Stent) and Other (Hernia repair)
Social History
Tobacco: Non-smoker
Alcohol: None
Personal:
Living: with family
Employment: Employed
Family History
Family History: Hypertension; Negative Diabetes, CAD or Sudden
Phy Exam
Physical Exam
Physical Exam:
See HPI
Course
Orders/Labs/Results
Orders:
Orders
12/12/23 10:45
EKG [Electrocardiogram (*1)] Urgent
Reason for Study: Syncope
EKG- Treatment ONCE
12/12/23 10:57
Basic Metabolic Panel Urgent
Complete Blood Count/With Diff Urgent
Troponin I Urgent
12/12/23 11:11
0.9% Sodium Chloride 500 ml [Nss] 500 ml IV BOLUS
Abnormal Lab Results
12/12/23
10:57
WBC 4.5 L 10^3/uL
(4.8-10.8)
RBC 4.07 L 10^6/uL
(4.70-6.10)
Hct 35.2 L %
(39.0-52.0)
MCH 32.2 H pg
(27.0-31.0)
MCHC 37.2 H g/dL
(33.0-37.0)
Plt Count 128 L 10^3/uL
(130-400)
Absolute Lymphs (auto) 0.6 L 10^3/uL
(1.2-3.4)
Lymphocytes % 13.5 L %
(20.5-51.1)
Monocytes % 10.9 H %
(1.7-9.3)
Sodium 127 L mmol/L
(135-145)
Chloride 96 L mmol/L
(98-107)
Carbon Dioxide 21 L mmol/L
(22-30)
BUN 24 H mg/dl
(9-20)
Glucose 109 H mg/dl
(70-99)
12/12/23 10:57
12/12/23 10:57
Vital Signs
Initial and Last Documented VS:
Initial Vital Signs
BP
140/80
12/12/23 10:42
Last Documented Vital Signs
Temp Pulse Resp BP Pulse Ox
98 F 67 16 137/71 100
12/12/23 10:45 12/12/23 12:00 12/12/23 12:00 12/12/23 12:00 12/12/23 10:45
*Critical Care Note
Total Time (30-74mins, 75-104mins- exclusive of procedures): Not Applicable
ED Attending Note
-
Portions of this chart may have been created with voice recognition software.� Occasional wrong word or��sound alike� substitutions may have occurred due to the inherent limitations of voice recognition software.
Discharge Plan
Departure
Patient Disposition: Home (Routine Discharge)
Date of Disposition: 12/12/23
Time of Disposition: 13:10
Patient with high blood pressure during this ER visit?: Yes
Discharge Problem:
Syncope
Prescriptions:
No Action
clonazepam 0.5 MG tablet
0.25 mg PO HSPRN PRN (Reason: anxiety)
Brilinta 90 mg Tablet
90 mg PO BID Qty: 60 5RF
aspirin [Children's Aspirin] 81 mg Tablet,Chewable
81 mg PO DAILY Qty: 1 0RF
pantoprazole 40 mg tablet,delayed release (DR/EC)
40 mg PO DAILY Qty: 30 0RF
famotidine 20 mg Tablet
20 mg PO DAILY Qty: 30 0RF
losartan 25 mg Tablet
25 mg PO DAILY Qty: 30 0RF
furosemide 20 mg Tablet
20 mg PO DAILY Qty: 30 0RF
spironolactone 25 mg Tablet
25 mg PO DAILY Qty: 30 0RF
Referrals:
Sabine Luu MD [Family Provider] -
Jenni Myles MD [Active] - Follow up in 2-3 days
Activity Restrictions/Additional Instructions:
I also spoke to Dr. Myles today. She recommends that you change the Lasix dosing to every other day and check her blood pressures at home and she wants you to call their office on Friday.
Interventions
Interventions:
*Risk Screen - Suicide Last Done: 12/12/23 10:48
*General Assessment Last Done: 12/12/23 10:48
*Neglect/Abuse Screening Last Done: 12/12/23 10:48
*ED COVID-19 Vaccine History Last Done: 12/12/23 10:47
ED- Pulmonary Assessment Last Done: 12/12/23 10:49
ED- Cardiac Assessment Last Done: 12/12/23 10:49
Discharge Date and Time
Print Language: SWEDISH
[2023-12-12] MEDS: NSS 500 IV (11:14)
[2023-12-12 11:24] LABS: Blood Urea Nitrogen 24 mg/dl (9-20); Calcium 9.2 mg/dl (8.4-10.2); Carbon Dioxide 21 mmol/L (22-30); Chloride 96 mmol/L (98-107); Estimated Creatinine Clearance 47 ml/min; Glucose 109 mg/dl (70-99); Sodium 127 mmol/L (135-145); eGFR > 60.00
[2023-12-12 12:00] VITALS: BP 137/71
[2023-12-12 13:17] VITALS: BP 151/77
== END 2023-12-12 13:24 | disposition home or self-care (01) ==
LOC: EMR 10:39
PROVIDERS: EMERGENCY PHYSICIAN Emergency Medicine; FAMILY PHYSICIAN Emergency Medicine
DX: R55 Syncope and collapse (principal); F41.9 Anxiety disorder, unspecified; F32.A Depression, unspecified; I12.9 Hypertensive chronic kidney disease with stage 1 through stage 4 chronic kidney disease, or unspecified chronic kidney disease; N18.9 Chronic kidney disease, unspecified; I25.10 Atherosclerotic heart disease of native coronary artery without angina pectoris; I25.2 Old myocardial infarction; Z95.5 Presence of coronary angioplasty implant and graft; Z79.899 Other long term (current) drug therapy; Z88.8 Allergy status to other drugs, medicaments and biological substances; Z79.82 Long term (current) use of aspirin
CPT/HCPCS: 99284; 96360; 80048; 84484; 85025; 93005

== ENCOUNTER 2024-01-03 22:51 | Emergency (ER) | payer MEDICARE, OTHER, SELFPAY ==
[2024-01-03 22:53] VITALS: BP 188/99
[2024-01-04 00:40] LABS: % Basophils 0.4 % (0-2); % Eosinophils 2.2 % (0-6); % Immature Granulocytes 0.5 % (0-0.5); % Lymphocytes 12.5 % (20.5-51.1); % Monocytes 12.5 % (1.7-9.3); % Neutrophils 71.9 % (42.2-75.2); Absolute Eosinophils 0.1 10^3/uL (0-0.7); Absolute Lymphocytes 0.7 10^3/uL (1.2-3.4); Absolute Monocytes 0.7 10^3/uL (0.1-0.6); Hematocrit 32.3 % (39.0-52.0); Hemoglobin 11.9 g/dL (13.0-18.0); Mean Corp Hgb Conc. 36.8 g/dL (33.0-37.0); Mean Corpuscular Hgb 32.7 pg (27.0-31.0); Mean Corpuscular Volume 88.7 fL (80.0-94.0); Mean Platelet Volume 8.9 fL (7.4-10.4); Nucleated Red Blood Cells % 0 % (-); Platelet Count 135 10^3/uL (130-400); Red Blood Cell Count 3.64 10^6/uL (4.70-6.10); Red Cell Dist. Width 13.1 % (11.5-14.5); White Blood Cell Count 5.5 10^3/uL (4.8-10.8)
[2024-01-04 00:54] LABS: ALT (SGPT) 26 U/L (0-50); AST (SGOT) 42 U/L (17-59); Albumin 4.1 g/dl (3.5-5.0); Alkaline Phosphatase 47 U/L (38-126); Blood Urea Nitrogen 41 mg/dl (9-20); Calcium 9.4 mg/dl (8.4-10.2); Carbon Dioxide 21 mmol/L (22-30); Chloride 93 mmol/L (98-107); Glucose 91 mg/dl (70-99); Sodium 124 mmol/L (135-145); Total Bilirubin 1.3 mg/dl (0.2-1.3); Total Protein 6.4 g/dl (6.3-8.2); eGFR > 60.00
[2024-01-04 01:15] VITALS: BP 143/77
[2024-01-04 01:45] LABS: Troponin I < 0.012 ng/ml
--- NOTE | 2024-01-04 01:58 | ED.GENMED ---
History of Present Illness
General
Chief Complaint: Back Pain
Source: patient, spouse and previous hospital records
Exam Limitations: none
Time Seen by Provider: 01/04/24 00:42
Nursing documentation reviewed up to this point in time: agreed with
History of Present Illness
History of Present Illness:
This is a 73-year-old gentleman who has history of hypertension, chronic hyponatremia, CAD who suffered a STEMI September of this year requiring urgent PTCA with stent. Since that hospitalization he admits to significant ongoing stress, anxiety which
has exacerbated his labile hypertension. Recent hospitalization December 08 to December 10 for treatment of acute on chronic hyponatremia. Recurred brief hypertonic saline, medications were adjusted. He was noted to be intolerant to metoprolol causing
symptomatic bradycardia.
He has history of chronic GERD maintained on pantoprazole as well as Pepcid and more recently has had some episodes of painful bowel movements with streaks of bright red blood. He fears he has a hemorrhoid versus fissure.
He is scheduled for an upper endoscopy mid January and more recently began taking MiraLAX due to constipation.
He has been following with a psychiatrist, missed his appointment last week but has a scheduled follow-up appointment for Friday or Friday of this week.
Chronically maintained on Klonopin 0.25 mg which she takes at bedtime only as needed.
Has been prescribed SSRIs in the remote past and is contemplating need to resume SSRI but was concerned regarding potential interaction with Brilinta.
He presents tonight with complaints of right posterior neck pain that began yesterday morning. Right posterior neck pain is worse with rotation of his head and he admits to attempting to prop his head up on an extra pillow or to to assist with his
ongoing GERD symptoms. He denies chest pain, no cough no shortness of breath. No leg pain or swelling. He denies palpitations.
He was concerned for possible cardiac nature for his right posterior neck pain but admits that current pain is quite different from the chest pain he experienced with his STEMI in September.
Currently wearing Holter monitor.
Past History
Past History
ED Past Medical History: CAD, GERD, HTN, [place], Psychiatric (Anxiety) and Other (left ear tinnitus, hyponatremia, Pancreatitis, internal hemorrhoid); Negative Hypercholesterolemia
ED Past Surgical History: Cardiac (Stent) and Other (Hernia repair)
Social History
Tobacco: Non-smoker
Alcohol: None
Personal:
Living: with family
Employment: Employed
Family History
Family History: Hypertension; Negative Diabetes, CAD or Sudden
Phy Exam
Physical Exam
Physical Exam:
GENERAL: 73-year-old gentleman appears his stated age, awake and alert, pleasant, somewhat soft-spoken, mildly anxious but easily communicative. is accompanying.
EYE: anicteric
NECK: Supple, no midline bony tenderness. Mild tenderness right inferior paracervical region. Mildly restricted right rotation.
ENT: oral mucosa is moist. No rhinorrhea.
CARDIAC: Regular rate and rhythm. no murmur.
LUNGS: Clear breath sounds bilaterally, no acute respiratory distress, no wheezes/rales/rhonchi
ABDOMEN: Soft, nondistended, without focal tenderness, no r/g, no cvat. normoactive BS.
NEUROLOGICAL: Alert and oriented x3, no focal neuro deficits. Gait is steady.
SKIN: Warm and dry, normal color, skin intact. No rash.
MUSCULOSKELETAL: No C/C/E. peripheral pulses are full and equal b/l. No palpable tenderness.
PSYCH: Mildly anxious. Cooperative.
Course
Orders/Labs/Results
Orders:
Orders
01/03/24 22:56
EKG [Electrocardiogram (*1)] Urgent
Reason for Study: Other
Other Reason for Exam: back and neck pain
EKG- Treatment ONCE
01/04/24 00:31
Complete Blood Count/With Diff Urgent
Comprehensive Metabolic Panel Urgent
01/04/24 01:13
Troponin I Urgent
01/04/24 02:11
0.9% Sodium Chloride 1000 ml [Nss] 1,000 ml IV BOLUS
Abnormal Lab Results
01/04/24
00:31
RBC 3.64 L 10^6/uL
(4.70-6.10)
Hgb 11.9 L g/dL
(13.0-18.0)
Hct 32.3 L %
(39.0-52.0)
MCH 32.7 H pg
(27.0-31.0)
Absolute Lymphs (auto) 0.7 L 10^3/uL
(1.2-3.4)
Absolute Monos (auto) 0.7 H 10^3/uL
(0.1-0.6)
Lymphocytes % 12.5 L %
(20.5-51.1)
Monocytes % 12.5 H %
(1.7-9.3)
Sodium 124 L mmol/L
(135-145)
Chloride 93 L mmol/L
(98-107)
Carbon Dioxide 21 L mmol/L
(22-30)
BUN 41 H mg/dl
(9-20)
01/04/24 00:31
01/04/24 00:31
Vital Signs
Initial and Last Documented VS:
Initial Vital Signs
Temp Pulse Resp BP Pulse Ox
98.1 F 67 18 188/99 100
01/03/24 22:53 01/03/24 22:53 01/03/24 22:53 01/03/24 22:53 01/03/24 22:53
Last Documented Vital Signs
Temp Pulse Resp BP Pulse Ox
98.1 F 81 18 143/77 98
01/03/24 22:53 01/04/24 01:15 01/03/24 22:53 01/04/24 01:15 01/04/24 01:15
MDM/Problems Addressed
Differential Diagnosis Includes:
History most consistent with musculoskeletal neck pain. Less likely ACS but with history of CAD, prior STEMI, will check troponin. EKG is similar and unchanged from previous.
Patient has history of chronic hyponatremia. Concern for recurrent progressive hyponatremia.
He complains of bright red blood streaked about hard stool, concern for internal hemorrhoid, fissure.
History of chronic GERD, bright red blood is less likely upper GI in nature and he denies black or tarry stools. Concern for anemia.
Patient has history of chronic anxiety and admits to ongoing severe stress, anxiety, worry. Has follow-up appointment with psychiatrist in 1 to 2 days time.
We did discuss initiation of an SSRI and Zoloft versus Lexapro appear to not interfere with Brilinta. Encouraged to discuss initiation of a daily anxiety medication with his psychiatrist.
Chronic conditions affecting care: HTN, CAD, Psychiatric illness, Kidney disease and Other (Hyponatremia, GERD)
*Pulse Oximetry
Patient hypoxic: no
*EKG
Interpreted by ED Provider?: Yes
Comparison EKG: no changes (Unchanged from previous December 12, 2023)
Rate: normal
Rhythm: sinus
[place]: normal axis
Interval: normal interval
QRS Pattern: normal QRS
Ischemia: no ischemia
*Communications Marketing Intern Interpretation
Rate: normal
Interpretation: normal
Rhythm: sinus
*Critical Care Note
Total Time (30-74mins, 75-104mins- exclusive of procedures): Not Applicable
Update Note
Update Note:
Labs show moderate hyponatremia at 124, similar sporadic results of the past with baseline sodium 126-129.
Mild anemia with hemoglobin of 11.9, similar results in the past as well.
Mildly elevated BUN, has trended up from previous. May be related to additional diuretics that were added at most recent hospitalization earlier this month. Patient has had no black or tarry stools but must consider occult upper GI bleed. He
remains hemodynamically stable. Has upper endoscopy scheduled in 2 weeks time.
Troponin is negative.
Will give an IV normal saline bolus and recommend he continue to limit his free water intake on a daily basis.
We discussed potential for initiating an SSRI but recommend he discuss this further with his psychiatrist with telehealth appointment scheduled for tomorrow.
Follow-up with cardiology as already scheduled as well as GI.
Return precautions discussed.
ED Attending Note
-
Portions of this chart may have been created with voice recognition software.� Occasional wrong word or��sound alike� substitutions may have occurred due to the inherent limitations of voice recognition software.
Discharge Plan
Departure
Patient Disposition: Home (Routine Discharge)
Date of Disposition: 01/04/24
Time of Disposition: 03:26
Patient with high blood pressure during this ER visit?: No
Condition: Good
Discharge Problem:
Neck pain, musculoskeletal, Hyponatremia, ALEKSANDAR (generalized anxiety disorder)
Instructions: Generalized Anxiety Disorder (DC), Hyponatremia
Prescriptions:
No Action
clonazepam 0.5 MG tablet
0.25 mg PO HSPRN PRN (Reason: anxiety)
Brilinta 90 mg Tablet
90 mg PO BID Qty: 60 5RF
aspirin [Children's Aspirin] 81 mg Tablet,Chewable
81 mg PO DAILY Qty: 1 0RF
pantoprazole 40 mg tablet,delayed release (DR/EC)
40 mg PO DAILY Qty: 30 0RF
famotidine 20 mg Tablet
20 mg PO DAILY Qty: 30 0RF
losartan 25 mg Tablet
25 mg PO DAILY Qty: 30 0RF
furosemide 20 mg Tablet
20 mg PO DAILY Qty: 30 0RF
spironolactone 25 mg Tablet
25 mg PO DAILY Qty: 30 0RF
Referrals:
Sabine Luu MD [Family Provider] - Call in 1-3 days for appt
Activity Restrictions/Additional Instructions:
Follow-up with your psychiatrist as well as iron launder operator as already scheduled.
Follow-up with good humor vendor as already scheduled.
Continue to restrict your water intake to 16 ounces daily.
Continue MiraLAX on a daily basis; along with this you may add Colace daily as needed for constipation.
Interventions
Interventions:
*Risk Screen - Suicide Last Done: 01/03/24 22:53
*General Assessment Last Done: 01/03/24 22:53
*Neglect/Abuse Screening Last Done: 01/03/24 22:53
*ED COVID-19 Vaccine History Last Done: 01/04/24 01:15
ED-Musculoskeletal Assessment Last Done: 01/04/24 01:15
Discharge Date and Time
Print Language: AMHARIC
[2024-01-04] MEDS: NSS 1000 IV (02:40)
[2024-01-04 04:36] VITALS: BP 149/71
== END 2024-01-04 04:46 | disposition home or self-care (01) ==
LOC: EMR 22:51
PROVIDERS: EMERGENCY PHYSICIAN Emergency Medicine; FAMILY PHYSICIAN Emergency Medicine
DX: M54.2 Cervicalgia (principal); E87.1 Hypo-osmolality and hyponatremia; F41.1 Generalized anxiety disorder; I10 Essential (primary) hypertension; I25.10 Atherosclerotic heart disease of native coronary artery without angina pectoris; I25.2 Old myocardial infarction; K21.9 Gastro-esophageal reflux disease without esophagitis; R00.1 Bradycardia, unspecified; Z79.899 Other long term (current) drug therapy; Z82.49 Family history of ischemic heart disease and other diseases of the circulatory system; Z87.19 Personal history of other diseases of the digestive system; Z95.5 Presence of coronary angioplasty implant and graft
CPT/HCPCS: 99283; 96360; 96361; 80053; 84484; 85025; 93005

== ENCOUNTER 2024-01-14 06:11 | Day surgery (SDC) | payer MEDICARE, OTHER, SELFPAY ==
[2024-01-14 06:47] VITALS: BMI 20.9
[2024-01-14 07:07] VITALS: BMI 20.9
[2024-01-14 07:13] VITALS: BP 170/83
[2024-01-14 09:16] VITALS: BP 163/127
[2024-01-14 09:18] VITALS: BP 142/84
[2024-01-14 09:30] VITALS: BP 142/74
[2024-01-14 09:41] VITALS: BP 137/76
== END 2024-01-14 10:00 | disposition home or self-care (01) ==
LOC: SDS 06:11
PROVIDERS: ATTENDING PHYSICIAN Internal Medicine Gastroenterology
DX: K85.90 Acute pancreatitis without necrosis or infection, unspecified (principal); K29.50 Unspecified chronic gastritis without bleeding; K31.89 Other diseases of stomach and duodenum; K86.2 Cyst of pancreas; Z80.0 Family history of malignant neoplasm of digestive organs
CPT/HCPCS: 43237; 43239; 88305; 88342

== ENCOUNTER 2024-02-03 16:41 | Outpatient (RCR) | payer MEDICARE, OTHER, SELFPAY | END 2024-02-03 23:59 | disposition home or self-care (01) | LOC: CRHB 16:41 | PROVIDERS: ATTENDING PHYSICIAN Internal Medicine Interventional Cardiology | DX: Z95.5 Presence of coronary angioplasty implant and graft (principal); I25.10 Atherosclerotic heart disease of native coronary artery without angina pectoris; I25.2 Old myocardial infarction | CPT/HCPCS: 93798 ==

== ENCOUNTER 2024-03-04 10:03 | Outpatient (RCR) | payer MEDICARE, OTHER, SELFPAY | END 2024-03-04 23:59 | disposition home or self-care (01) | LOC: CRHB 10:03 | PROVIDERS: ATTENDING PHYSICIAN Internal Medicine Interventional Cardiology; FAMILY PHYSICIAN Emergency Medicine | DX: I25.10 Atherosclerotic heart disease of native coronary artery without angina pectoris (principal); Z95.5 Presence of coronary angioplasty implant and graft; I25.2 Old myocardial infarction | CPT/HCPCS: 93797; 93798; G0422; G0423 ==

== ENCOUNTER → 2024-03-20 08:58 | Outpatient (REF) | payer MEDICARE, OTHER, SELFPAY ==
[2024-03-20 10:51] LABS: HDL Cholesterol 50 mg/dl; LDL Cholesterol, Calculated 67 mg/dl; Total Cholesterol 132 mg/dl (50-199); Triglyceride 77 mg/dl (10-149); Very Low Density Lipoprotein 15 mg/dl (0-30)
== END ==
LOC: REG 08:58
PROVIDERS: ATTENDING PHYSICIAN Internal Medicine Interventional Cardiology; FAMILY PHYSICIAN Emergency Medicine
DX: Z95.5 Presence of coronary angioplasty implant and graft (principal); I21.01 ST elevation (STEMI) myocardial infarction involving left main coronary artery
CPT/HCPCS: 36415; 80061

== ENCOUNTER 2024-04-02 15:08 | Outpatient (RCR) | payer MEDICARE, OTHER, SELFPAY | END 2024-04-02 23:59 | disposition home or self-care (01) | LOC: CRHB 15:08 | PROVIDERS: ATTENDING PHYSICIAN Internal Medicine Interventional Cardiology; FAMILY PHYSICIAN Emergency Medicine | DX: I25.10 Atherosclerotic heart disease of native coronary artery without angina pectoris (principal); Z95.5 Presence of coronary angioplasty implant and graft; I25.2 Old myocardial infarction | CPT/HCPCS: 93797; 93798; G0422; G0423 ==

== ENCOUNTER 2024-04-06 10:09 | Outpatient (RCR) | payer MEDICARE, OTHER, SELFPAY | END 2024-04-08 13:30 | disposition home or self-care (01) | LOC: CRHB 10:09 | PROVIDERS: ATTENDING PHYSICIAN Internal Medicine Interventional Cardiology; FAMILY PHYSICIAN Emergency Medicine | DX: I25.10 Atherosclerotic heart disease of native coronary artery without angina pectoris (principal); Z95.5 Presence of coronary angioplasty implant and graft; I25.2 Old myocardial infarction | CPT/HCPCS: 93797; 93798 ==

== ENCOUNTER 2024-06-15 11:35 | Inpatient (IN) | payer MEDICARE, OTHER, SELFPAY ==
[2024-06-12] VITALS (12 sets, daily range): BP systolic 143–185; BP diastolic 75–98; BMI 20.1; BMI 19.0
--- NOTE | 2024-06-12 12:32 | ED.GENMED ---
History of Present Illness
General
Chief Complaint: Fainting Sensation
Source: patient and spouse
Exam Limitations: none
Time Seen by Provider: 06/12/24 12:32
Nursing documentation reviewed up to this point in time: agreed with
History of Present Illness
History of Present Illness:
Patient is a 74-year-old male past medical history of [place], chronic hyponatremia presents to the ER for evaluation. Today patient was doing chair yoga and felt lightheaded like he was going to pass out. He denies any chest pain or shortness of
breath prior to episode. He did 2 eggs and sat out this morning.
reports patient has chronic fatigue and weight loss. Patient is lost 30 pounds since having his IL in September. reports they have been in contact with family doctor and they are going to see a psychiatrist next week and trying to get
patient into a partial outpatient program. She reports he has a food issue ever since having his heart attack he critically evaluates what he eats and is does not eat a lot.
For his hyponatremia he is on fluid restriction 40 ounces of water per day and is on Lasix and spironolactone alone. He does see Dr. Ritter for this.
No prior history of CHF.
Past History
Past History
ED Past Medical History: CAD, GERD, HTN, [place], Psychiatric (Anxiety) and Other (left ear tinnitus, hyponatremia, Pancreatitis, internal hemorrhoid); Negative Hypercholesterolemia
ED Past Surgical History: Cardiac (Stent) and Other (Hernia repair)
Social History
Tobacco: Non-smoker
Alcohol: None
Personal:
Living: with family
Employment: Employed
Family History
Family History: Hypertension; Negative Diabetes, CAD or Sudden
Review of Systems
Review of Systems
Allergies reviewed?: Yes
Other source history: family
All Other Systems: ROS reviewed and negative except as documented in HPI and ROS
Constitutional: Reports fatigue
EENT: Reports no symptoms
Respiratory: Reports no symptoms; Denies trouble breathing
Cardiac: Reports other (Near syncope); Denies chest pain, diaphoresis, palpitations or syncope
ABD/GI: Reports other (has ongoing issues with eating )
: Reports no symptoms
Musculoskeletal: Reports no symptoms
Skin: Reports no symptoms
Hematologic/Lymphatic: Reports no symptoms
Psychiatric: Reports no symptoms
Phy Exam
General Physical Exam
General Presentation: well appearing
General age: appears stated age
General Skin: warm and dry
General Habitus: elderly
General Mental: alert
General Hydration: appears well hydrated
Cardiovascular Exam
Cardiovascular Exam: regular rate/rhythm, no murmur and normal peripheral pulses
Pulmonary Exam
Pulmonary Exam: lungs clear and no respiratory distress
Neurological Exam
Neurological Exam: alert and oriented x3
Musculoskeletal Exam
Musculoskeletal Exam: full ROM
Skin Exam
Skin Exam: normal color and warm/dry
Psychiatric Exam
Psychiatric Exam: normal mood/affect
Course
Orders/Labs/Results
Orders:
Orders
06/12/24 12:13
Electrocardiogram (*1) Urgent
Reason for Study: Syncope
Cardiac Monitoring- Treatment ONCE
EKG- Treatment ONCE
IV Insert/Care/Rem.- Treatment PRN
O2 Therapy [RESP] Urgent
Titrate/Wean O2 to maintain O2 sat greater than (%): 90
Special Instructions: Maintain sats >/=90%
Pulse Ox/spot Check [RESP] Urgent
Quantity: 1
Special Instructions: ON ROOM AIR
06/12/24 12:45
Basic Metabolic Panel Urgent
Troponin I Urgent
06/12/24 13:50
Complete Blood Count/With Diff Urgent
06/12/24 14:56
Electrocardiogram (*1) Stat
Reason for Study: Other
Other Reason for Exam: chest pain
EKG- Treatment ONCE
06/12/24 15:00
Electrocardiogram (*1) Stat
Reason for Study: Other
Other Reason for Exam: chest pain
EKG- Treatment ONCE
06/12/24 15:13
Hep Liver [[id number]] Urgent
Potassium Urgent
06/12/24 16:12
Admit/Transfer Patient As Directed
Co-Sign Provider:
Level of Care: Observation services
Assign to:: Telemetry
Physician / Group: lisa pacheco
Diagnosis: near syncope
Reason for Telemetry: Syncope
Date to Stop Telemetry: 06/14/24
Time to Stop Telemetry: 11:00
PRN Pain Medication Management As Directed
May give lesser potent ordered pain med per pt: Yes
preference::
Protocol:: Medication orders for pain may be administered in a
manner that supports deferring to patient preference
when the pt is:
- Requesting an ordered lesser potent pain medication.
Least to most potent pain medications are defined
as: acetaminophen < NSAID < tramadol < opioids
(morphine, oxycodone, hydromorphone).
- Requesting a lesser dose of the same medication IF
ORDERED.
- Requesting a less intrusive route of administration
if both routes are prescribed by the provider (PO <
IV).
06/12/24 16:14
Code Status As Directed
Resuscitation Status: Full Code
06/14/24 11:00
DC Protocol for Telemetry ONCE
Abnormal Lab Results
06/12/24 06/12/24 06/12/24
12:45 13:50 15:13
WBC 4.0 L 10^3/uL
(4.8-10.8)
RBC 3.72 L 10^6/uL
(4.70-6.10)
Hgb 12.3 L g/dL
(13.0-18.0)
Hct 33.2 L %
(39.0-52.0)
MCH 33.1 H pg
(27.0-31.0)
Plt Count 111 L 10^3/uL
(130-400)
Absolute Lymphs (auto) 0.5 L 10^3/uL
(1.2-3.4)
Neutrophils % 77.6 H %
(42.2-75.2)
Lymphocytes % 11.1 L %
(20.5-51.1)
Monocytes % 10.4 H %
(1.7-9.3)
Sodium 128 L mmol/L
(135-145)
Chloride 95 L mmol/L
(98-107)
BUN 43 H mg/dl
(9-20)
Glucose 115 H mg/dl
(70-99)
Total Protein 6.2 L g/dl
(6.3-8.2)
06/12/24 13:50
06/12/24 15:13
Vital Signs
Initial and Last Documented VS:
Initial Vital Signs
BP
150/81
06/12/24 12:19
Last Documented Vital Signs
Temp Pulse Resp BP Pulse Ox
97.5 F 66 14 159/86 100
06/12/24 12:22 06/12/24 17:00 06/12/24 17:00 06/12/24 17:00 06/12/24 17:00
MDM/Problems Addressed
MDM/Problems Addressed:
as documented patient is a 74-year-old male who presents for weakness. Today he was doing chair yoga and felt very lightheaded like he was going to pass out. He has issues of weight loss and has difficulty eating and has had weight loss since
having a stent in September. His reports he researches everything he eats. Family doctor is aware and they are scheduled to see [facility] [place]
reports his family doctor has not yet fully ruled out other causes for weight loss. Patient reports to the ER awake alert he is frail-appearing limb speaking. He complains of feeling very fatigued.
He denies any recent illness fever chills and is afebrile here white count 4.0 hemoglobin stable at 12.3; his sodium was 128 which is baseline for patient his BUN is 43 his creatinine is 1.2 which is normal.
I did speak with nephrology who feels that this sodium is chronic for patient and that his weakness is not caused from his hyponatremia.�And as prescribed by his started to 6 yeah okay like I feel yeah this time I know I have to call the
daughter's phone is discussed with nephrology patient's blood pressure stable to this we will hold off on fluids.
Pt does not feel well enough to go home.
*Pulse Oximetry
Patient hypoxic: no
*EKG
Interpreted by ED Provider?: Yes
EKG Intrepretation Time: 15:10
Interpretation: normal
Comparison EKG: no changes
Heart Rate: 58
Rate: normal
Rhythm: sinus
Ischemia: no ischemia
*Critical Care Note
Total Time (30-74mins, 75-104mins- exclusive of procedures): Not Applicable
Data Reviewed
Review of Other/Old Records Reveals: Labs, Discharge Summary and Other (Previous EKG)
Patient Management
Discussion with other providers: Volunteer Services Coordinator (Nephrology; DR Myles )
ED Attending Note
-
Portions of this chart may have been created with voice recognition software.� Occasional wrong word or��sound alike� substitutions may have occurred due to the inherent limitations of voice recognition software.
Discharge Plan
Departure
Patient Disposition: Admit
Date of Disposition: 06/12/24
Time of Disposition: 15:21
Admit to: Telemetry
Admit to doctor: hospitaist
Presentation/result/management discussed w/ accepting MD/DO: Hospitalist
Patient with high blood pressure during this ER visit?: Yes
Covid-19: Not Applicable
Discharge Problem:
Near syncope
Interventions
Interventions:
*Risk Screen - Suicide Last Done: 06/12/24 12:25
*General Assessment Last Done: 06/12/24 12:25
*Neglect/Abuse Screening Last Done: 06/12/24 12:25
ED- Fall Risk Assessment Last Done: 06/12/24 12:25
*ED COVID-19 Vaccine History Last Done: 06/12/24 12:25
ED- Cardiac Assessment Last Done: 06/12/24 14:09
ED- Neurological Assessment Last Done: 06/12/24 14:09
[2024-06-12 13:20] LABS: Blood Urea Nitrogen 43 mg/dl (9-20); Calcium 9.4 mg/dl (8.4-10.2); Carbon Dioxide 24 mmol/L (22-30); Chloride 95 mmol/L (98-107); Estimated Creatinine Clearance 41 ml/min; Glucose 115 mg/dl (70-99); Sodium 128 mmol/L (135-145); eGFR > 60.00
[2024-06-12 13:32] LABS: Troponin I 0.013 ng/ml
[2024-06-12 14:08] LABS: % Basophils 0.2 % (0-2); % Eosinophils 0.5 % (0-6); % Immature Granulocytes 0.2 % (0-0.5); % Lymphocytes 11.1 % (20.5-51.1); % Monocytes 10.4 % (1.7-9.3); % Neutrophils 77.6 % (42.2-75.2); Absolute Lymphocytes 0.5 10^3/uL (1.2-3.4); Absolute Monocytes 0.4 10^3/uL (0.1-0.6); Absolute Neutrophils 3.1 10^3/uL (1.4-6.5); Hematocrit 33.2 % (39.0-52.0); Hemoglobin 12.3 g/dL (13.0-18.0); Mean Corpuscular Hgb 33.1 pg (27.0-31.0); Mean Corpuscular Volume 89.2 fL (80.0-94.0); Mean Platelet Volume 8.4 fL (7.4-10.4); Nucleated Red Blood Cells % 0 % (-); Platelet Count 111 10^3/uL (130-400); Red Blood Cell Count 3.72 10^6/uL (4.70-6.10); Red Cell Dist. Width 12.5 % (11.5-14.5)
[2024-06-12 15:32] LABS: ALT (SGPT) 39 U/L (0-50); AST (SGOT) 32 U/L (17-59); Alkaline Phosphatase 56 U/L (38-126); Direct Bilirubin 0.1 mg/dl (0.0-0.4); Potassium 4.2 mmol/L (3.5-5.1); Total Bilirubin 0.9 mg/dl (0.2-1.3); Total Protein 6.2 g/dl (6.3-8.2)
--- NOTE | 2024-06-12 15:43 | HPS.HSE ---
Family Physician
-
Family Physician: Sabine Luu MD
Chief Complaint
-
fatigue
History of Present Illness
74-year-old male past medical history of [place], chronic hyponatremia presents with lightheaded, dizzy as he was going to pass out while he was doing his chair yoga. Patient felt like the room was spinning.denied headache or syncopal episode .patient
denied chest pain or short of breath .patient denied abdominal pain, nausea, vomiting, diarrhea. Patient denied dysuria hematuria. As per , he has loss 30 pounds since September. He has chronic fatigue and weakness. Since the cardiac stents, he
has not feeling well at all.
Admitting for further management
Medical History
Past Medical History
Past Medical History: Reports Other
Additional Past Medical History:
Anxiety
Hypertension
Hyperaldosteronism
Gout
Cervical stenosis
White coat syndrome
[place]
Hydrocele
Vitamin D deficiency
BPH
Herpes zoster
Pancreatitis
Trigger finger
Syncope
Past Surgical History: Reports Other
Additional Past Surgical History:
Cardiac stent
Right inguinal hernia repair
Social History
Tobacco: Non-smoker
Alcohol: None
Drug: None
Personal:
Living: With Family
Family History
Family History: Not pertinent
Allergies / Home Medications
Allergies reflects when Allergies were last updated in [facility].
Home Medications with original date entered in [facility]
Allergy/Medication List:
Allergies
Allergy/AdvReac Type Severity Reaction Status Date / Time
lisinopril Allergy Intermediate pancreatiti Verified 06/12/24 12:25
s
hydrochlorothiazide AdvReac Intermediate sodium Verified 06/12/24 12:25
depletion
Home Medications
aspirin 81 mg chewable tablet (Children's Aspirin) 81 mg PO DAILY #1 tab 09/25/23
pantoprazole 40 mg tablet,delayed release 40 mg PO DAILY #30 tabs 12/08/23
famotidine 20 mg tablet 20 mg PO DAILY #30 tabs 12/11/23
furosemide 20 mg tablet 20 mg PO DAILY #30 tabs 12/11/23
amlodipine 5 mg tablet 5 mg PO DAILY 01/14/24
sodium chloride 1,000 mg soluble tablet 500 mg PO BID 01/14/24
spironolactone 25 mg tablet 12.5 mg PO DAILY Blood Pressure 01/14/24
calcium carbonate (Tums) 200 mg PO BIDPRN PRN GERD 06/12/24
clopidogrel 75 mg tablet (Plavix) 75 mg PO DAILY@1500 06/12/24
lorazepam 0.5 mg tablet 0.5 mg PO HSPRN PRN SLEEP/ANIXETY 06/12/24
polyethylene glycol 3350 17 gram oral powder packet (Miralax) 17 g PO DAILYPRN PRN COSTIPATION 06/12/24
Review of Systems
-
Constitutional: Reports No Symptoms
EENT: Reports No Symptoms
Respiratory: Reports No Symptoms
Cardiac: Reports No Symptoms
Abdomen/GI: Reports No Symptoms
: Reports No Symptoms
Musculoskeletal: Reports No Symptoms
Skin: Reports No Symptoms
Neurological: Reports No Symptoms
Endocrine: Reports No Symptoms
Hematologic/Lymphatic: Reports No Symptoms
Psych: Reports No Symptoms
Physical Exam
Vital Signs
Vital Signs
Temp Pulse Resp BP Pulse Ox
97.5 F 61 19 170/82 100
06/12/24 12:22 06/12/24 15:00 06/12/24 15:00 06/12/24 15:00 06/12/24 15:00
Physical Exam
General: Well Developed, Well Nourished and No Apparent Distress
HEENT: NormoCephalic, Moist mucous membranes and Atraumatic
Respiratory: Clear
Cardiac: S1/S2 and Regular Rhythm; No Murmur or Rub
GI: Soft, Non Tender, Non Distended and Normal Bowel Sounds; No Organomegaly
Rectal: Deferred by Provider
Musculoskeletal: No Clubbing, No Cyanosis and No Edema
Skin: No Rash
Neuro: AO x 3 and Nonfocal/grossly intact
Psych: Calm
Laboratory Results
-
06/12/24 13:50
06/12/24 15:13
Laboratory Results
Total Bilirubin 0.9 mg/dl (0.2-1.3) 06/12/24 15:13
AST 32 U/L (17-59) 06/12/24 15:13
ALT 39 U/L (0-50) 06/12/24 15:13
Alkaline Phosphatase 56 U/L (38-126) 06/12/24 15:13
Troponin I 0.013 ng/ml 06/12/24 12:45
Data Reviewed
-
Lab Data: Labs Reviewed by me
Impression/Plan
-
# Weakness/near syncope likely from poor oral intake
-PT/OT consulted
-Nutrition consulted
-Obtain orthostatics
# Chronic hyponatremia
-Sodium 128, BUN 43
-Continue fluid restriction
# AF BMP in a.m.
-Sodium chloride continued
# anxiety
-Lorazepam continued
Benign Hypertension
-Norvasc, Lasix spironolactone continued with hold parameters
ASCVD
- s/p STEMI in 09/2023
- Continue ASA and Plavix
- eventually resume a statin
GERD
- Stable. Continue daily PPI + h2 sandrine
CKD III
- Stable. Renal function is at baseline. Follow for any changes.
DVT Prophylaxis: Lovenox
Code Status: Full
--- NOTE | 2024-06-12 17:17 | W.PN.UPDATE ---
Update Note
Progress Note Update
This note serves as an addendum to the H&P by aeronautical project engineer MORELIA Florence PERES
HPI
74M HX [place], chronic hyponatremia seen at ER:
- evaluation for lightheaded, dizzy almost pass out while he was doing his chair yoga.
- report the room was spinning.denied headache or syncopal episode
- As per , he has loss 30 pounds since September.
- He has chronic fatigue and weakness.
- Since the cardiac stents, he has not feeling well at all.
ROS
-denied chest pain or short of breath
- denied abdominal pain, nausea, vomiting, diarrhea.
- denied dysuria hematuria.
PHX
Anxiety
Hypertension
Hyperaldosteronism
Gout
Cervical stenosis
White coat syndrome
[place]
Hydrocele
Vitamin D deficiency
BPH
Herpes zoster
Pancreatitis
Trigger finger
Syncope
Past Surgical History: Reports Other
Additional Past Surgical History:
Cardiac stent
Right inguinal hernia repair
Vital Signs
Temp Pulse Resp BP Pulse Ox
97.5 F 64 16 171/91 100
06/12/24 12:22 06/12/24 16:00 06/12/24 16:00 06/12/24 16:00 06/12/24 16:00
PE
General: No Apparent Distress
HEENT: Moist mucous membranes and Atraumatic
Respiratory: Clear
Cardiac: S1/S2 and Regular Rhythm; No Murmur or Rub
GI: Soft, Non Tender, Non Distended and Normal Bowel Sounds
Rectal: Deferred by Provider
Musculoskeletal: No Edema
Skin: No Rash
Neuro: AO x 3 and Nonfocal/grossly intact
Psych: Calm
Laboratory Tests
01/04/24 06/12/24 06/12/24
00:31 12:45 13:50
WBC 5.5 4.0 L
Hgb 11.9 L 12.3 L
Sodium 124 L 128 L
Potassium 4.2
Chloride 95 L
BUN 43 H
Creatinine 1.2 1.2
eGFR > 60.00 > 60.00
ASSESSMENT & PLAN
Weakness/near syncope likely from poor oral intake and dehydration
He is on alternate Frusemide and Aldactone, Na CL and fluid restriction led to chronic state of NEG fluid balance and significant wt loss ?
Looks cachectic BMI 20
- Ortho VSS
- PT/OT
- Nutrition consulted
- fall precaution
Chronic hyponatremia : Na 128, BUN 43
He is on alternate Frusemide and Aldactone and Na CL
? chronic state of NEG fluid balance
P Nephro ; Dr Allen
- Continue 40 oz fluid restriction
- cont. WEATHER REPORTER Sodium chloride
- Trend Na
- Nephro consult
HX Anxiety
- Lorazepam continued
Benign Hypertension
- Norvasc, Lasix spironolactone continued with hold parameters
ASCVD
- s/p STEMI in 09/2023
- Continue ASA and Plavix
- eventually resume a statin
GERD
- Stable. Continue daily PPI + h2 sandrine
DVT Prophylaxis: Lovenox
Code Status: Full
Obs TLM
[2024-06-12] MEDS: SODIUM CHLORIDE 0.5 GRAM PO (23:00)
[2024-06-12] MEDS: LOVENOX 40 MG SC (23:00)
[2024-06-13] VITALS (10 sets, daily range): BP systolic 143–187; BP diastolic 80–116; PULSE 71–98; BMI 19.0
[2024-06-13 06:27] LABS: Blood Urea Nitrogen 33 mg/dl (9-20); Calcium 9.5 mg/dl (8.4-10.2); Carbon Dioxide 25 mmol/L (22-30); Chloride 96 mmol/L (98-107); Estimated Creatinine Clearance 37 ml/min; Glucose 89 mg/dl (70-99); HDL Cholesterol 56 mg/dl; LDL Cholesterol, Calculated 74 mg/dl; Potassium 4.2 mmol/L (3.5-5.1); Sodium 129 mmol/L (135-145); Total Cholesterol 140 mg/dl (50-199); Triglyceride 53 mg/dl (10-149); Very Low Density Lipoprotein 10 mg/dl (0-30); eGFR 58.01
[2024-06-13 06:57] LABS: TSH 2.05 uIU/ml (0.47-4.68)
[2024-06-13] MEDS: NORVASC 5 MG PO (08:25)
[2024-06-13] MEDS: PROTONIX 40 MG PO (08:25)
[2024-06-13] MEDS: PEPCID 20 MG PO (08:26)
[2024-06-13] MEDS: SODIUM CHLORIDE 0.5 GRAM PO ×2 (08:26→20:17)
[2024-06-13] MEDS: ALDACTONE 12.5 MG PO (08:26)
[2024-06-13] MEDS: LASIX 20 MG PO (08:26)
[2024-06-13] MEDS: LOW STRENGTH ASPIRIN 81 MG PO (08:27)
--- NOTE | 2024-06-13 11:58 | W.PN.HOSP.TC ---
Today's Communication/Plan
-
see outlined plan
Assessment / Plan
Assessment / Plan
Assessment:
Weakness/near syncope likely from poor oral intake vs arrhythmia vs CVA vs orthostasis vs other
- doubt hyponatremia contributing - Na stable
- check orthostatic VS
- check 2D Echo
- check MRI brain
- PT/OT evals
Chronic hyponatremia
- continue fluid restriction
- continue Lasix
- Sodium chloride continued
anxiety
- Lorazepam continued
Benign Hypertension
- Norvasc, Lasix, spironolactone continued with hold parameters
ASCVD
- s/p STEMI in 09/2023
- continue ASA
- patient feels that Plavix is causing neck/shoulder pain - would like to speak to Cardiology about changing management.
- eventually resume a statin
GERD
- Stable. Continue daily PPI + h2 sandrine
CKD III
- Stable. Renal function is at baseline. Follow for any changes.
Chronic weight loss
- check TSH
- consider CT imaging to eval for malignancy pending initial workup
DVT Prophylaxis: Lovenox
Code Status: Full
Anticipated Discharge: > 48 hours
Subjective/Interval History
-
Date of Service: June 13, 2024
denies any dizziness, lightheadedness or vertigo currently
feels weak, overwhelmed
Objective Data
-
Labs:
Laboratory Results
06/13/24
05:39
Sodium 129 L
Potassium 4.2
Chloride 96 L
Carbon Dioxide 25
BUN 33 H
Creatinine 1.3
Glucose 89
Calcium 9.5
Vital Signs:
Vital Signs
Temp Pulse Resp BP Pulse Ox
97.7 F 60 18 163/80 100
06/13/24 07:59 06/13/24 08:26 06/13/24 07:59 06/13/24 08:26 06/13/24 07:59
I&O
06/12/24 06/13/24 06/14/24
06:59 06:59 06:59
Intake Total 0 / 0
Output Total 400 / 400
Balance -400 / -400
Physical Exam
-
General: No Apparent Distress
HEENT: Normocephalic and Atraumatic
Respiratory: Negative Wheezes
Cardiac: Regular Rhythm and S1/S2
GI: Soft and Nontender
Musculoskeletal: No Edema
Neuro: AO x 3
Hematologic / Lymphatic: No Lymphadenopathy
Psych: Calm
Data Reviewed
-
Total Time Spent with Patient (in minutes): 41
Labs: Labs Reviewed by me
[2024-06-13] MEDS: SENOKOT-S 1 TABLET PO (12:45)
[2024-06-13] MEDS: MIRALAX 17 GRAMS PO (12:45)
--- NOTE | 2024-06-13 13:21 | PTCARENOTE ---
Addendum entered by Marley Stone RN 06/13/24 17:16:
Patient with large bowel movement.
Addendum entered by Marley Stone RN 06/13/24 14:47:
Dulcolax suppository given. Called into room by who states is disimpacting self. Spoke to patient about risks of disimpaction and educated him to let the medications given take effect. Patient verbalizes understanding.
Original Note:
Patient with complaints of constipation. Patient uses laxatives at home. Given Miralax and Sennakot.
[2024-06-13] MEDS: DULCOLAX 10 MG RECTAL (14:25)
[2024-06-13] MEDS: APRESOLINE 5 MG IV (16:08)
[2024-06-13] MEDS: PLAVIX 75 MG PO (16:10)
[2024-06-13] MEDS: LOVENOX 40 MG SC (17:18)
[2024-06-14] VITALS (7 sets, daily range): BP systolic 131–165; BP diastolic 82–96; PULSE 63–88; BMI 18.7
[2024-06-14 07:06] LABS: Hematocrit 34.1 % (39.0-52.0); Hemoglobin 12.5 g/dL (13.0-18.0); Mean Corp Hgb Conc. 36.7 g/dL (33.0-37.0); Mean Corpuscular Hgb 33.3 pg (27.0-31.0); Mean Corpuscular Volume 90.9 fL (80.0-94.0); Mean Platelet Volume 9.1 fL (7.4-10.4); Platelet Count 140 10^3/uL (130-400); Red Blood Cell Count 3.75 10^6/uL (4.70-6.10); Red Cell Dist. Width 12.6 % (11.5-14.5); White Blood Cell Count 4.8 10^3/uL (4.8-10.8)
[2024-06-14 07:14] LABS: Blood Urea Nitrogen 33 mg/dl (9-20); Calcium 9.4 mg/dl (8.4-10.2); Carbon Dioxide 26 mmol/L (22-30); Chloride 95 mmol/L (98-107); Estimated Creatinine Clearance 37 ml/min; Glucose 90 mg/dl (70-99); Potassium 4.3 mmol/L (3.5-5.1); Sodium 129 mmol/L (135-145); eGFR 58.01
--- NOTE | 2024-06-14 07:50 | CON.CAR ---
Addendum entered and electronically signed by Eros Ricketts MD 06/14/24 10:42:
I saw and examined the patient.
The JOURNEYMAN PIPE WELDER or PA's note was reviewed and I agree with the note.
Comment: General: Well developed, well nourished in NAD.
Neck: Supple, no JVD, HJR, carotids +2 B/L, no bruits bilaterally.
Heart: Non displaced PMI, RRR, no murmurs, No S3, S4, no rubs.
Lungs: Scattered rhonchi
Extremities: No clubbing, cyanosis or edema bilaterally.
Neuro: Grossly nonfocal, awake, alert and oriented x3.
Isaías has medical history of inferior wall [place] status post stent of RCA, hypertension managed by nephrology, recurrent syncope, chronic hyponatremia, thiazide induced hyponatremia, depression, unexplained weight loss. He presented with near syncope.
He was doing chair yoga and became lightheaded and dizzy associated with feeling of room spinning. No chest pain shortness breath or palpitations. Patient requested cardiology consult as he feels Plavix may be causing neck pain.
Dizziness may be multifactorial with severe weight loss. GI workup is in progress. Explained the patient needs to remain on Plavix and is not the cause of his neck pain. Will check echocardiogram. If echocardiogram is okay no further workup
needed. Discussed with patient and at bedside.
Original Note:
Consultation
Consultation Request
Date/Time Consultation Requested: 06/13/2024
Date/Time Consultation Performed: 06/14/2024
Requesting Provider: Dr. Alberts
Performing Provider: Danielle Coleman PA-C for Dr. Ricketts
Reason for Consultation: Near syncope, concern Plavix causing neck pain
Medical History
-
History of Present Illness:
Patient is a 74-year-old male with past medical history notable for anxiety/depression, chronic hyponatremia, hyperaldosteronism with longstanding hypertension, CAD status post inferior [place] with RCA SERGIO September 2023, failure to thrive with ongoing
weight loss with chronic fatigue who presented to emergency department 06/12/2024 with near syncope. Patient was performing chair yoga on 06/12/2024 when he developed lightheaded/dizzy sensation associated with feeling of room spinning. He denied
having chest pain, shortness of breath, syncope, headache, nausea vomiting or any other symptoms. Sodium was found to be 128 which is near his baseline. Troponin was negative. EKG showed sinus rhythm without ischemic changes. There was no
evidence of orthostatic hypotension. In fact blood pressure was elevated and has been high throughout admission. Patient underwent MRI 06/13/2024 which was unremarkable with no evidence of stroke. Patient has requested a cardiology consult as he
feels that Plavix may also be causing him to have neck pain. Patient reports he takes his Plavix around 2:00 in the afternoon and shortly after taking it he will notice a discomfort in his neck upper back/shoulder area. He is wondering if Plavix is
contributing to it.
PMH:
Coronary artery disease
s/p inferior STEMI s/p 3.0 x 15 mm Xience SERGIO to the distal RCA
uncontrolled HTN since age 41, managed by Nephrology
Recurrent syncope
Chronic hyponatremia
HLD
Thiazide induced hyponatremia
Anxiety with panic attacks follow with psychiatry
Depression
Chronic fatigue
Unexplained weight loss
Hyperaldosteronism
Vitamin D Deficiency
Pancreatitis 2015
Gout
ED
Past Medical History
Past Medical History: Other (See HPI)
Past Surgical History: Cardiac (RCA SERGIO 09/23/2023) and Other (Right inguinal hernia repair 2003)
Social History
Tobacco: Non-Smoker
Alcohol: None
Drug: None
Personal:
Living: With Family
Employment: Retired
Family History
Family History: Cancer (Father pancreatic, colon cancer; mother breast cancer)
Allergies / Home Medications
Allergy/AdvReac Type Severity Reaction Status Date / Time
lisinopril Allergy Intermediate pancreatiti Verified 06/12/24 12:25
s
hydrochlorothiazide AdvReac Intermediate sodium Verified 06/12/24 12:25
depletion
�Medication �Instructions �Recorded �Confirmed �Type
aspirin 81 mg chewable tablet 81 mg PO DAILY #1 tab 09/25/23 06/12/24 Rx
(Children's Aspirin)
pantoprazole 40 mg tablet,delayed 40 mg PO DAILY #30 tabs 12/08/23 06/12/24 Rx
release
famotidine 20 mg tablet 20 mg PO DAILY #30 tabs 12/11/23 06/12/24 Rx
furosemide 20 mg tablet 20 mg PO DAILY #30 tabs 12/11/23 06/12/24 Rx
amlodipine 5 mg tablet 5 mg PO DAILY 01/14/24 06/12/24 History
sodium chloride 1,000 mg soluble 500 mg PO BID 01/14/24 06/12/24 History
tablet
spironolactone 25 mg tablet 12.5 mg PO DAILY Blood Pressure 01/14/24 06/12/24 History
calcium carbonate (Tums) 200 mg PO BIDPRN PRN GERD 06/12/24 06/12/24 History
clopidogrel 75 mg tablet (Plavix) 75 mg PO DAILY@1500 06/12/24 06/12/24 History
lorazepam 0.5 mg tablet 0.5 mg PO HSPRN PRN SLEEP/ANIXETY 06/12/24 06/12/24 History
polyethylene glycol 3350 17 gram 17 g PO DAILYPRN PRN COSTIPATION 06/12/24 06/12/24 History
oral powder packet (Miralax)
Review of Systems
-
History Source: Patient
All other systems: Negative unless noted
Physical Exam
Vital Signs
Temp Pulse Resp BP Pulse Ox
97.8 F 63 18 165/91 98
06/14/24 06:45 06/14/24 06:45 06/14/24 06:45 06/14/24 06:45 06/14/24 06:45
GEN: No distress, awake, Ox3, Thin male sitting in bed
HEENT: supple, anicteric, mmm
LUNGS: CTA, no wheezes/rales
CV: Reg, S1/S2, no murmur, rub or gallop
ABD: soft, BS+, NT/ND
EXT: No edema, Clubbing or cyanosis
NEURO: Gross non-focal
SKIN: No rash, warm, dry
Lab Results
06/14/24 05:55
06/14/24 05:55
Troponin I 0.013 ng/ml 06/12/24 12:45
Impression / Plan
-
PCP: Dr. Luu
Protective Officer: Dr. Haseeb Alvarez
IMPRESSION:
Presented 06/12/2024 with near syncope/dizziness/lightheadedness with sensation of room spinning
Acute on chronic hyponatremia
Coronary artery disease
s/p inferior STEMI s/p 3.0 x 15 mm Xience SERGIO to the distal RCA
uncontrolled HTN since age 41, managed by Nephrology
Recurrent syncope
Chronic hyponatremia
HLD
Thiazide induced hyponatremia
Anxiety with panic attacks follow with psychiatry
Depression
Hyperaldosteronism
Chronic fatigue
Unexplained weight loss
Vitamin D Deficiency
Pancreatitis 2015
Gout
ED
Cardiac Angiography 10/03/2023: LM: normal, LAD: 30% mid with otherwise LI.� D1 is large with 30-40% ostial/prox, 80% prox D2. LCX: 40-50% distal. RCA: Dominant 100% distal occlusion before crux s/p 3.0 x 15 mm Xience SERGIO to the distal RCA; LVGram-
focal area of severe mid inferior hypokinesis with EF 64%
Echo 06/14/2024: Pending
Echo 09/24/2023: EF 50 to 55%. Mild AI.
Plan:
-Presented 06/12/2024 with near syncope/dizziness/lightheadedness with sensation of room spinning. This occurred while patient was doing chair yoga. Patient has history of recurrent syncope/near syncope as well as chronic hyponatremia. Sodium on
admission near baseline.
-MRI of brain was unremarkable and negative for stroke
-EKG and troponins were unremarkable. There is been no arrhythmias noted on telemetry to account for his symptoms.
-Negative orthostatic vitals and per review of blood pressure has been high rather than low.
-Would check echocardiogram.
-Patient had STEMI with RCA drug-eluting stent in February 2024. He was initially placed on Brilinta however this was transitioned to Plavix due to cost issues. Patient has done well on Plavix however recently in the last several weeks he has noted
neck/shoulder pain after taking his Plavix. Discussed this is a very unlikely side effect from Plavix. Discussed alternative option would be trying Effient. He would like continue on Plavix and try taking earlier in the day. Given his STEMI
would recommend continuing dual antiplatelet therapy till September 2024.
-Lipids 06/13/2024 TC 140, HDL 56, LDL 74, triglycerides 53. Patient has a history of statin intolerance. He has refused statins in office and continues to decline statin therapy.
-Chronic hyponatremia with sodium near baseline.
-Longstanding history of hypertension since 40s. Nephrology manages antihypertensive agents. Patient has been unable to tolerate thiazide diuretics due to chronic hyponatremia. Continue Norvasc, Lasix, spironolactone
-Patient has had failure to thrive with ongoing chronic weight loss and chronic fatigue for almost 1 year. He has followed with GI in past for this. Etiology remains unclear. Hospitalists considering repeating imaging. Will order Boost/ensure
supplemental drinks.
-TSH 2.05
Plan discussed with patient and his who are at bedside
HPI 06/14/2024:
Patient is a 74-year-old male with past medical history notable for anxiety/depression, chronic hyponatremia, hyperaldosteronism with longstanding hypertension, CAD status post inferior [place] with RCA SERGIO September 2023, failure to thrive with ongoing
weight loss with chronic fatigue who presented to emergency department 06/12/2024 with near syncope. Patient was performing chair yoga on 06/12/2024 when he developed lightheaded/dizzy sensation associated with feeling of room spinning. He denied
having chest pain, shortness of breath, syncope, headache, nausea vomiting or any other symptoms. Sodium was found to be 128 which is near his baseline. Troponin was negative. EKG showed sinus rhythm without ischemic changes. There was no
evidence of orthostatic hypotension. In fact blood pressure was elevated and has been high throughout admission. Patient underwent MRI 06/13/2024 which was unremarkable with no evidence of stroke. Patient has requested a cardiology consult as he
feels that Plavix may also be causing him to have neck pain. Patient reports he takes his Plavix around 2:00 in the afternoon and shortly after taking it he will notice a discomfort in his neck upper back/shoulder area. He is wondering if Plavix is
contributing to it.
Data Reviewed
-
EKG: Report Reviewed by me, Discussed with Physician, Discussed with Nurse, Discussed with Patient and Discussed with Family
Labs: Labs Reviewed by me, Discussed with Physician, Discussed with Nurse, Discussed with Patient and Discussed with Family
Old Records: Reviewed
[2024-06-14] MEDS: ALDACTONE 12.5 MG PO (09:34)
[2024-06-14] MEDS: LOW STRENGTH ASPIRIN 81 MG PO (09:34)
[2024-06-14] MEDS: LASIX 20 MG PO (09:35)
[2024-06-14] MEDS: SODIUM CHLORIDE 0.5 GRAM PO ×2 (09:35→19:36)
[2024-06-14] MEDS: NORVASC 5 MG PO (09:35)
[2024-06-14] MEDS: PEPCID 20 MG PO (09:35)
[2024-06-14] MEDS: PROTONIX 40 MG PO (09:36)
--- NOTE | 2024-06-14 11:55 | W.PN.HOSP.TC ---
Today's Communication/Plan
-
see A/P
Assessment / Plan
Assessment / Plan
A/P:
# Generalized Weakness/near syncope, poor PO intake
doubt hyponatremia contributing- chronic hyponatremia noted
orthostatic VS reviewed, negative for orthostatic hypotension
check 2D Echo
tele without arrhythmia
MRI brain: No acute intracranial abnormality noted.
PT/OT recc HH
# Unintentional weight loss
TSH 2.[address] CAP to eval for occult malignancy (NSS before and after CT for renal protection)
Follow PSA
Psych CS for mood related loss of appetite contributing to weight loss
# Chronic hyponatremia
continue fluid restriction
continue Lasix
Sodium chloride continued
# anxiety
Lorazepam continued
# Benign Hypertension
Norvasc, Lasix, spironolactone continued with hold parameters
# ASCVD
# STEMI in 09/2023
continue ASA
patient feels that Plavix is causing neck/shoulder pain - would like to speak to Cardiology about changing management.
eventually resume a statin
# GERD, Stable.
Continue daily PPI + h2 sandrine
# CKD III, Stable.
Renal function is at baseline. Follow for any changes.
DVT Prophylaxis: Lovenox
Code Status: Full
DW at bedside
total time spent 51 min
Anticipated Discharge: 24 - 48 hours
Subjective/Interval History
-
Date of Service: June 14, 2024
Objective Data
-
Labs:
Laboratory Results
06/14/24
05:55
WBC 4.8
Hgb 12.5 L
Hct 34.1 L
Plt Count 140 D
Sodium 129 L
Potassium 4.3
Chloride 95 L
Carbon Dioxide 26
BUN 33 H
Creatinine 1.3
Glucose 90
Calcium 9.4
Vital Signs:
Vital Signs
Temp Pulse Resp BP Pulse Ox
36.6 C 63 18 165/91 98
06/14/24 06:45 06/14/24 09:35 06/14/24 06:45 06/14/24 09:35 06/14/24 06:45
I&O
06/13/24 06/14/24 06/15/24
06:59 06:59 06:59
Intake Total 0 / 0 240 / 240
Output Total 400 / 400 400 / 400
Balance -400 / -400 -160 / -160
Review of Systems
-
Constitutional: Reports Weight Loss (unintensional)
Physical Exam
-
General: Well Developed, No Apparent Distress, Comfortable and Conversant
HEENT: Normocephalic and Atraumatic
Respiratory: Clear to Auscultation and Non Labored Respirations; Negative Wheezes or Accessory Resp Muscle Use
Cardiac: Regular Rhythm and S1/S2
GI: Soft, Nontender, Nondistended and Normal Bowel Sounds
Musculoskeletal: No Edema
Neuro: AO x 3
Psych: Calm and Intact Judgement/Insight
Data Reviewed
-
MRI: Report Reviewed by me, Discussed with Patient and Discussed with Family
Labs: Labs Reviewed by me
[2024-06-14] MEDS: NSS 250 IV ×2 (12:56→17:33)
[2024-06-14] MEDS: OMNIPAQUE 50 ML PO (13:00)
[2024-06-14 14:01] LABS: PSA, Total - Screen 0.56 ng/ml (0.0-4.0)
[2024-06-14] MEDS: PLAVIX 75 MG PO (14:35)
--- NOTE | 2024-06-14 14:36 | W.PN.UPDATE ---
Update Note
Progress Note Update
Approached pt and for psychiatric eval. reportedly concerned about pt having depression. Pt is 74 yo male admitted for pre-syncope and generalized weakness, dizziness while doing chair yoga. Pt states he would rather not do the
interview this afternoon, drinking prep for an imaging study. Pt has chronic hyponatremia, states he can't take SSRI's. Noted not feeling well, has persistent fatigue, since having cardiac stents after [place] in September 2023. Pt reportedly has lost 30
lb since then. Sodium on admission 128, repeat yest and today 129.
Psych hx: unspecified anxiety, depression. Rx Ativan 0.5 mg 1/2 tab BID as needed, mainly takes at HS
SH: retired, , living with family
MSE: alert, oriented, calm, cooperative, sitting up/reclining in bed in no acute distress. Pt asked to be interviewed at a later time due to drinking prep for an imaging study. No agitation, no signs of psychosis. Speech coherent, thought
goal-directed.
Imp: Unspecified Anxiety, managed at home with Ativan 0.25 mg BID prn
R/o depressive d/o
Rec: continue Ativan at HS prn; will follow and complete assessment regarding depression
--- NOTE | 2024-06-14 16:21 | CM ---
Alert awake oriented patient who lives with his Zeenat who lives in a 3 story home with 3 step to enter and 13 steps to bed and bathroom. He is independent in all activities of daily living.GERARDO letter explained to pt and .GERARDO not
signed by pt .Copy on chart.
No VN hx / No SNF history
Pharmacy [facility] [place]
PCP DR Luu
PLAN Will need PT OT for dc plan
[2024-06-14] MEDS: LOVENOX 40 MG SC (17:33)
[2024-06-14] MEDS: SENOKOT-S 1 TABLET PO (19:41)
[2024-06-15] VITALS (7 sets, daily range): BP systolic 111–153; BP diastolic 77–89; PULSE 60–94; BMI 18.7
[2024-06-15 07:26] LABS: Blood Urea Nitrogen 28 mg/dl (9-20); Calcium 9.4 mg/dl (8.4-10.2); Carbon Dioxide 25 mmol/L (22-30); Chloride 93 mmol/L (98-107); Estimated Creatinine Clearance 37 ml/min; Glucose 99 mg/dl (70-99); Sodium 128 mmol/L (135-145); eGFR 58.01
[2024-06-15] MEDS: LASIX 20 MG PO (08:37)
[2024-06-15] MEDS: LOW STRENGTH ASPIRIN 81 MG PO (08:37)
[2024-06-15] MEDS: SENOKOT-S 1 TABLET PO ×2 (08:37→20:46)
[2024-06-15] MEDS: PEPCID 20 MG PO (08:38)
[2024-06-15] MEDS: NORVASC 5 MG PO (08:38)
[2024-06-15] MEDS: ALDACTONE 12.5 MG PO (08:38)
[2024-06-15] MEDS: SODIUM CHLORIDE 0.5 GRAM PO ×2 (08:38→20:45)
[2024-06-15] MEDS: PROTONIX 40 MG PO (08:38)
--- NOTE | 2024-06-15 11:20 | W.PN.HOSP.TC ---
Today's Communication/Plan
-
see A/P
Assessment / Plan
Assessment / Plan
A/P:
# Generalized Weakness/near syncope, poor PO intake
doubt hyponatremia contributing- chronic hyponatremia noted
orthostatic VS reviewed, negative for orthostatic hypotension
2D Echo unrevealing: EF 62%. Normal right ventricular size and systolic function. Thickened mitral valve with trivial mitral regurgitation
tele without arrhythmia
MRI brain: No acute intracranial abnormality noted.
PT/OT recc HH
# Unintentional weight loss
TSH 2.05
[address] CAP did not reveal occult malignancy
PSA 0.56
Appreciate Psych input, recc to cont Ativan prn for anxiety for now
# Chronic hyponatremia
continue fluid restriction
continue Lasix
Sodium chloride continued
# anxiety
Lorazepam continued
# Benign Hypertension
Norvasc, Lasix, spironolactone continued with hold parameters
# ASCVD
# STEMI in 09/2023
continue ASA
patient feels that Plavix is causing neck/shoulder pain - would like to speak to Cardiology about changing management.
eventually resume a statin
# GERD, Stable.
Continue daily PPI + h2 sandrine
# CKD III, Stable.
Renal function is at baseline. Follow for any changes.
DVT Prophylaxis: Lovenox
Code Status: Full
DW at bedside
Anticipated Discharge: Within 24 hours
Subjective/Interval History
-
Date of Service: June 15, 2024
Objective Data
-
Labs:
Laboratory Results
06/15/24
06:03
Sodium 128 L
Potassium 4.0
Chloride 93 L
Carbon Dioxide 25
BUN 28 H
Creatinine 1.3
Glucose 99
Calcium 9.4
Vital Signs:
Vital Signs
Temp Pulse Resp BP Pulse Ox
37.1 C 62 18 144/81 100
06/15/24 07:00 06/15/24 08:37 06/15/24 07:00 06/15/24 08:37 06/15/24 08:20
I&O
06/14/24 06/15/24 06/16/24
06:59 06:59 06:59
Intake Total 240 / 240 740 / 740
Output Total 400 / 400
Balance -160 / -160 740 / 740
Review of Systems
-
Constitutional: Reports Weight Loss (unintensional)
Physical Exam
-
General: Well Developed, No Apparent Distress, Comfortable, Conversant and Appears Chronically Ill
HEENT: Normocephalic and Atraumatic
Respiratory: Clear to Auscultation and Non Labored Respirations; Negative Wheezes or Accessory Resp Muscle Use
Cardiac: Regular Rhythm and S1/S2
GI: Soft, Nontender, Nondistended and Normal Bowel Sounds
Musculoskeletal: No Edema
Neuro: AO x 3
Psych: Calm and Intact Judgement/Insight
Data Reviewed
-
MRI: Report Reviewed by me, Discussed with Patient and Discussed with Family
Labs: Labs Reviewed by me
--- NOTE | 2024-06-15 14:46 | W.PN.UPDATE ---
Update Note
Progress Note Update
Echocardiogram normal. No further workup needed. Will sign off, call with questions
--- NOTE | 2024-06-15 14:56 | CS.PSYCHR ---
Consult Summary - Psychiatry
-
Pt is 74 yo male with chronic hyponatremia, admitted for pre-syncope and generalized weakness, dizziness while doing chair yoga. Pt noted not feeling well, has persistent fatigue, since having cardiac stents after IN in September 2023. Pt has poor po
intake and significant weight loss since September. Pt seen with at the bedside. Pt alert, oriented, conversant, gives roundabout/convoluted answers to questions, although speech and thought are clear. Pt aware his weight is down to critical
level, acknowledges this is threatening his health. Reviewed pt's history regarding diet and weight- he used to be 'heavy' at 190 lb, has become increasingly obsessive about his diet, first got down to 165 lb with diet changes and felt good. He
then further decreased cholesterol intake and was down to 150 lb (normal BMI 24.6 at height 5'5'). Pt was at approx 147 lb when he had his heart attack in September 2023, states that was his lowest weight to feel healthy. Since his IN and stents, pt
has continued to lose weight, has not felt well, but continues to obsess over each portion and meal. reports pt has a small appetizer fork he eats with at home. He is aware he now weighs 112 lb. Pt has some decreased enjoyment of playing
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 Pt is preoccupied with recent vision problems, seems worried about the future. Pt denies feeling overweight or any drive for thinness, he is
motivated by concern for his health. reports pt takes a long time to eat meals- jokes that he has a '5-course breakfast.' Pt is eating here at . Pt denies feeling particularly down or depressed, mainly seems to be nervous/anxious. Pt was
seen by claim rep, who discussed increasing protein/calorie intake, encourage drinking nutrition shakes- pt receptive.
PMH: hyponatremia- Sodium level 128 on admission, same today. HTN, CKD III- stable, GERD- stable, CAD- IN and stenting Sep 2023, near-Syncope
Psych Hx: anxiety in late teens, had panic attacks [place] train [place]. Prescribed SSRI's a couple times in the past. Saw psychiatrist Dr Hawk- prescribed prn Klonopin
No inpatient treatment. No hx of severe depression. Recently had therapy with a psychologist. Pt seeking eval at [facility], has difficulty affording private providers. Currently on Ativan 0.5 mg prn
FHx: brother on SSRI for years; father from pancreatic/liver cancer
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 In process of selling home- has to down-size, planning to close Aug 06, likely moving to [facility] or [place] to be near [facility].
MSE: alert, oriented, calm, cooperative, cachectic. Pt answering questions, Speech coherent. Thought circumstantial, obsessive. Affect appropriate, mildly dysphoric and anxious. No signs of psychosis. Body image perception appears normal.
Insight fair
Imp: Unspecified anxiety d/o, leading to pt obsessing about his diet due to health concerns/fears
Adjustment d/o with depression, post IN earlier this year
Rec: primarily outpatient therapy, and would benefit from working with a jewelry making instructor. Pt encouraged to try multiple smaller meals and adding nutrition shakes.
Unable to take SSRI's due to chronic hyponatremia. Could consider trying Remeron although still carries a small risk of lowering Sodium level. Continue prn Ativan.
Will follow
[2024-06-15] MEDS: PLAVIX 75 MG PO (15:52)
--- NOTE | 2024-06-15 17:12 | CM ---
Spoke with pt in room . Pt given IMM . Explained IMM signed on chart.
Viola his will drive him home.
Offered VN he declined VN .
PLAN: Home no needs
[2024-06-15] MEDS: LOVENOX 40 MG SC (18:35)
[2024-06-16 03:55] VITALS: BP 103/84; BP 125/82; BP 137/80; PULSE 58; PULSE 67; PULSE 92
[2024-06-16 06:00] VITALS: BMI 19.0
[2024-06-16 06:36] VITALS: BP 144/88
[2024-06-16 07:15] LABS: Glucose - Point of Care 102 mg/dl (70-99)
[2024-06-16 07:51] LABS: Blood Urea Nitrogen 34 mg/dl (9-20); Calcium 9.1 mg/dl (8.4-10.2); Carbon Dioxide 27 mmol/L (22-30); Chloride 93 mmol/L (98-107); Estimated Creatinine Clearance 40 ml/min; Glucose 93 mg/dl (70-99); Potassium 4.2 mmol/L (3.5-5.1); Sodium 130 mmol/L (135-145); eGFR > 60.00
[2024-06-16] MEDS: SODIUM CHLORIDE 0.5 GRAM PO (09:09)
[2024-06-16] MEDS: NORVASC 5 MG PO (09:09)
[2024-06-16] MEDS: ALDACTONE 12.5 MG PO (09:10)
[2024-06-16] MEDS: LOW STRENGTH ASPIRIN 81 MG PO (09:10)
[2024-06-16] MEDS: LASIX 20 MG PO (09:10)
[2024-06-16] MEDS: PEPCID 20 MG PO (09:10)
[2024-06-16] MEDS: SENOKOT-S 1 TABLET PO (09:28)
[2024-06-16] MEDS: PROTONIX 40 MG PO (09:28)
--- NOTE | 2024-06-16 10:38 | PN.CDI ---
CDI
- -
CDI:
Physician Documentation Request
Admit Date: 06/15/24 11:35
Dear Doctor Bobby,
Please review the following and provide your response in the progress notes.
Clinical Indicators:
Pt admitted with syncope 2/2 poor oral intake
Documented in the record Cachexia /BMI 19/Unintentional weight loss
Nutrition consult 06/14, ' Ensure BID. Pt intake is limited due to anxiety. Pt reports 30lb weight loss since September. CBW (06/14) 112lb 4oz BMI 18.7 low norm wt/ht, (06/12) 114lb 5ozWeight hx per records- (12/11) 130lb, (12/07) 131lb, (11/05) 143lb,
(10/12) 143lb, (09/23) 147lb, (09/22) 153lb Significant 41lb 36.6% weight loss x 9months, 17% wt loss x 6months. ...Pt meets criteria for severe protein calorie malnutrition of chronic illness with >10% wt loss x 6months, prolonged poor intake prior to
hospital admit <75% for >1month. RD reviewed weight loss hc, dietary habits with pt and ....Subcutaneous loss over tricep Severity Severe, Muscle loss over temporal severity severe , clavicle severe ....'
Based on the above information and your assessment, which of the following most accurately represents the patient's nutritional status?
Severe protein Calorie Malnutrition
Other (please specify)
Hamer Criteria ([employer] Hospitalist 2017)
2 or more criteria must be present for either
non severe or severe malnutrition
Note that the criteria differs related to the
presence of an acute or chronic illness
Acute Illness Chronic Illness
Energy Intake Non Severe: <75% for >7 days Non Severe: <75% for >1 month
Severe: <50% for >5 days Severe: <75% for >1 month
Weight Loss Non Severe: 1-2% over 1 week Non Severe: 5% over 1 month
5% over 1 month 7.5% over 3 months
7.5% over 3 months 10% over 6 months
1 year N/A 20% over 1 year
Severe: >2% over 1 week Severe: >5% over 1 month
>5% over 1 month >7.5% over 3 months
>7.5% over 3 months >10% over 6 months
1 year N/A >20% over 1 year
Body Fat Non Severe: Mild Decrease Non Severe: Mild Loss
Severe: Moderate Decrease Severe: Severe Loss
Muscle Mass Non Severe: Mild Decrease Non Severe: Mild Loss
Severe: Moderate Decrease Severe: Severe Loss
Fluid Accumulation Non Severe: Mild Accumulation Non Severe: Mild Accumulation
Severe: Moderate to severe Severe: Moderate to severe
accumulation accumulation
Reduced Social Media Coordinator Strength Non Severe: N/A Non Severe: N/A
Severe: Measurably reduced Severe: Measurably reduced
Use of terms such as suspected, likely, concern for, or probable (associated with a specific diagnosis that is being evaluated, monitored, or treated as if it exists) are acceptable and can be coded in the inpatient setting, when documented at the
time of discharge.
Thank you,
Victorina Roe RN
CDI Specialist
[place] [facility]
Please use your independent medical judgment in providing your response.
--- NOTE | 2024-06-16 11:22 | W.PN.HOSP.TC ---
Addendum entered and electronically signed by Polly Rosales MD 06/18/24 14:06:
# Dehydration -ruled out
Addendum entered and electronically signed by Polly Rosales MD 06/16/24 15:21:
# Severe protein Calorie Malnutrition
Addendum entered and electronically signed by Polly Rosales MD 06/16/24 14:37:
total DC time 38 min
Original Note:
Today's Communication/Plan
-
DC home with HH
Assessment / Plan
Assessment / Plan
A/P:
# Generalized Weakness/near syncope, poor PO intake
doubt hyponatremia contributing- chronic hyponatremia noted (see below)
orthostatic VS reviewed, negative for orthostatic hypotension
2D Echo unrevealing: EF 62%. Normal right ventricular size and systolic function. Thickened mitral valve with trivial mitral regurgitation
tele without arrhythmia
MRI brain: No acute intracranial abnormality noted.
PT/OT recc HH
Encourage small frequent meals
# Unintentional weight loss
TSH 2.05
CT CAP did not reveal occult malignancy
PSA 0.56
Appreciate Psych input, recc to cont Ativan prn for anxiety for now
# Chronic hyponatremia
Sodium level 130 today
continue fluid restriction
continue Lasix
Sodium chloride continued
# anxiety
Lorazepam continued
# Benign Hypertension
Norvasc, Lasix, spironolactone continued with hold parameters
# ASCVD
# STEMI in 09/2023
continue ASA
patient feels that Plavix is causing neck/shoulder pain - would like to speak to Cardiology about changing management.
eventually resume a statin
# GERD, Stable.
Continue daily PPI + h2 sandrine
# CKD III, Stable.
Renal function is at baseline. Follow for any changes.
DVT Prophylaxis: Lovenox
Code Status: Full
DW at bedside
Anticipated Discharge: Today
Subjective/Interval History
-
Date of Service: June 16, 2024
Objective Data
-
Labs:
Laboratory Results
06/16/24
06:43
Sodium 130 L
Potassium 4.2
Chloride 93 L
Carbon Dioxide 27
BUN 34 H
Creatinine 1.2
Glucose 93
Calcium 9.1
Vital Signs:
Vital Signs
Temp Pulse Resp BP Pulse Ox
36.6 C 62 18 142/80 100
06/16/24 06:36 06/16/24 09:09 06/16/24 06:36 06/16/24 09:09 06/16/24 06:36
I&O
06/15/24 06/16/24 06/17/24
06:59 06:59 06:59
Intake Total 740 / 740 1620 / 1620
Output Total 250 / 250
Balance 740 / 740 1370 / 1370
Review of Systems
-
Constitutional: Reports Weight Loss (unintensional)
Physical Exam
-
General: Well Developed, No Apparent Distress, Comfortable, Conversant and Appears Chronically Ill
HEENT: Normocephalic and Atraumatic
Respiratory: Clear to Auscultation and Non Labored Respirations; Negative Wheezes or Accessory Resp Muscle Use
Cardiac: Regular Rhythm and S1/S2
GI: Soft, Nontender, Nondistended and Normal Bowel Sounds
Musculoskeletal: No Edema
Neuro: AO x 3
Psych: Calm and Intact Judgement/Insight
Data Reviewed
-
MRI: Report Reviewed by me, Discussed with Patient and Discussed with Family
Labs: Labs Reviewed by me
[2024-06-16 11:51] VITALS: BP 134/84
--- NOTE | 2024-06-16 14:19 | W.DCSUMMARY ---
Discharge Summary
Discharge Data
Date of Admission: 06/15/24
Date of Discharge: 06/16/24
-
Pending Results: No
Hospital Course
Principal Diagnosis:
Generalized weakness/near syncope likely due to poor oral intake
Unintentional weight loss, likely due to poor oral intake
Chronic Diagnoses:�
Chronic hyponatremia
Anxiety on as needed lorazepam
Benign Hypertension
Myocardial infarction status post cardiac stent
Gastroesophageal reflux disease, stable.
Chronic kidney disease stage III, stable.
Consultation:�
Psychiatry
Procedures:�
None
Clinical course:�
This is a 74-year-old male, with past medical history as stated above, who presented with generalized weakness and near syncope, associated with poor oral intake and unintentional weight loss.
Problem 1:
Generalized weakness/near syncope likely due to poor oral intake.
It was noted that he has chronic hyponatremia, and due to the chronicity of his low sodium level, it is less likely that the hyponatremia was contributing to his weakness.
His sodium level was at 130 on the day of discharge.
His generalized weakness with extensively workup this admission: his orthostatic vital sign was negative for orthostatic hypotension, his 2D echo was unrevealing (EF 62%), telemetry showed no arrhythmia, MRI brain showed no acute intracranial
abnormality.
He was seen by PT OT and was recommended to return home with home health, which was arranged for the patient
Problem 2:
Unintentional weight loss, likely due to poor oral intake.
His unintentional weight loss was extensively worked up this admission: TSH within normal limit at 2.05, CT CAP did not reveal occult malignancy, PSA at 0.56.
He was seen by psychiatrist due to concern of mood related poor oral intake, and he was recommended to continue Ativan as needed for his anxiety.
He can follow-up with outpatient psychiatry for further eval.
As for the rest of his medical problems, they were stable during his hospital stay.
Discharge Plan
-
Patient Disposition: Home with Home Care
Discharge Diagnosis/Procedures: Generalized weakness/near syncope;
Unintentional weight loss;
Chronic hyponatremia;
Anxiety
Condition: Fair
Diet: As tolerated and Restrict fluids to 64 oz
Activity: As tolerated
Driving Restrictions: As prior to admission
Referrals:
Sabine Luu MD [Family Provider] - in less than 1 week
Prescriptions:
Continued
aspirin [Children's Aspirin] 81 mg Tablet,Chewable
81 mg PO DAILY Qty: 1 0RF
spironolactone 25 mg tablet
12.5 mg PO DAILY
amlodipine 5 mg Tablet
5 mg PO DAILY
sodium chloride 1,000 mg Tablet,Soluble
500 mg PO BID
pantoprazole 40 mg tablet,delayed release (DR/EC)
40 mg PO DAILY Qty: 30 0RF
famotidine 20 mg Tablet
20 mg PO DAILY Qty: 30 0RF
furosemide 20 mg Tablet
20 mg PO DAILY Qty: 30 0RF
polyethylene glycol 3350 [Miralax] 17 gram Powder In Packet
17 g PO DAILYPRN PRN (Reason: COSTIPATION)
clopidogrel [Plavix] 75 mg Tablet
75 mg PO DAILY@1500
lorazepam 0.5 mg Tablet
0.5 mg PO HSPRN PRN (Reason: SLEEP/ANIXETY)
calcium carbonate [Tums] 200 mg calcium (500 mg) Tablet,Chewable
200 mg PO BIDPRN PRN (Reason: GERD)
Discharge Orders:
Discharge Patient (As Directed); Ordered 06/16/24
Ordered By: Polly Rosales
Discharge Date and Time
Discharge Date/Time: 06/16/24 13:15
Print Language: CITIZEN OF [place]
--- NOTE | 2024-06-16 15:33 | CM ---
MD entered order for discharge.
Pt offered VN he declined .
His Zeenat drove him home .
PLAN : Home no needs
--- NOTE | 2024-06-17 09:02 | PN.CDI ---
CDI
- -
CDI:
Physician Documentation Request
Admit Date: 06/15/24 11:35
Dear Doctor Bobby,
Please review the following and provide your response in the progress notes.
Clinical Indicators:
Pt admitted with generalized weakness/ Poor oral intake /Unintentional weight loss
Documented per update note to H&P, ' 06/12, 'Weakness/near syncope likely from poor oral intake and dehydration...'
Pt did get 2 IVF bolus 250 ml NSS
Please update the status of dehydration documented in the update note :
Dehydration - resolved /a valid dx
Dehydration -ruled out
Other ( please specify)
Use of terms such as suspected, likely, concern for, or probable (associated with a specific diagnosis that is being evaluated, monitored, or treated as if it exists) are acceptable and can be coded in the inpatient setting, when documented at the
time of discharge.
Thank you,
Victorina Roe RN
CDI Specialist
[place] [employer]
Please use your independent medical judgment in providing your response.
== END 2024-06-16 13:15 | disposition home or self-care (01) | DRG 640 ==
LOC: 4 EAST ACU 11:35
PROVIDERS: Emergency Medicine; Internal Medicine; Nurse Practitioner; Registered Nurse; ADMITTING PHYSICIAN Internal Medicine; ATTENDING PHYSICIAN Internal Medicine; CONSULT PHYSICIAN Psychiatry & Neurology Psychiatry; EMERGENCY PHYSICIAN Emergency Medicine; FAMILY PHYSICIAN Emergency Medicine; OTHER PHYSICIAN Internal Medicine Cardiovascular Disease
DX: R63.8 Other symptoms and signs concerning food and fluid intake (principal); E43 Unspecified severe protein-calorie malnutrition; E87.1 Hypo-osmolality and hyponatremia; Z68.1 Body mass index [BMI] 19.9 or less, adult; R64 Cachexia; I25.10 Atherosclerotic heart disease of native coronary artery without angina pectoris; K21.9 Gastro-esophageal reflux disease without esophagitis; N18.30 Chronic kidney disease, stage 3 unspecified; I12.9 Hypertensive chronic kidney disease with stage 1 through stage 4 chronic kidney disease, or unspecified chronic kidney disease; Z95.5 Presence of coronary angioplasty implant and graft
CPT/HCPCS: 70551; 71260; 74177; 80048; 80061; 80076; 82962; 84132; 84443; 84484; 85025; 85027; 93005; 93306; 94760; 97162; 97166; 97530; 99285; G0103; Q9967

== ENCOUNTER → 2024-09-24 12:12 | Outpatient (REF) | payer MEDICARE, OTHER, SELFPAY | LOC: RAD 12:12 | PROVIDERS: ATTENDING PHYSICIAN Emergency Medicine | DX: M54.50 Low back pain, unspecified (principal) | CPT/HCPCS: 72110 ==

== ENCOUNTER → 2024-10-20 09:04 | Outpatient (REF) | payer MEDICARE, OTHER, SELFPAY ==
[2024-10-20 11:33] LABS: Hematocrit 35.8 % (39.0-52.0); Hemoglobin 12.8 g/dL (13.0-18.0); Mean Corp Hgb Conc. 35.8 g/dL (33.0-37.0); Mean Corpuscular Hgb 33.2 pg (27.0-31.0); Mean Platelet Volume 9.5 fL (7.4-10.4); Platelet Count 115 10^3/uL (130-400); Red Blood Cell Count 3.85 10^6/uL (4.70-6.10); Red Cell Dist. Width 12.8 % (11.5-14.5); White Blood Cell Count 4.3 10^3/uL (4.8-10.8)
[2024-10-20 12:39] LABS: Blood Urea Nitrogen 45 mg/dl (9-20); Calcium 9.5 mg/dl (8.4-10.2); Carbon Dioxide 26 mmol/L (22-30); Chloride 100 mmol/L (98-107); Glucose 78 mg/dl (70-99); Potassium 4.5 mmol/L (3.5-5.1); Sodium 135 mmol/L (135-145); eGFR 53.07
== END ==
LOC: SDSPAT 09:04
PROVIDERS: ATTENDING PHYSICIAN Surgery; FAMILY PHYSICIAN Emergency Medicine; OTHER PHYSICIAN Internal Medicine Cardiovascular Disease
DX: Z01.818 Encounter for other preprocedural examination (principal)
CPT/HCPCS: 36415; 80048; 85027

== ENCOUNTER 2024-10-27 06:10 | Day surgery (SDC) | payer MEDICARE, OTHER, SELFPAY ==
[2024-10-20 14:13] VITALS: BMI 20.1
[2024-10-27] VITALS (7 sets, daily range): BP systolic 126–198; BP diastolic 73–92; BMI 20.1
[2024-10-27] MEDS: TYLENOL 1000 MG PO (06:36)
[2024-10-27] MEDS: NORMOSOL-R/PLASMALYTE-A 1000 IV (06:37)
== END 2024-10-27 11:38 | disposition home or self-care (01) ==
LOC: SDS 06:10
PROVIDERS: ATTENDING PHYSICIAN Surgery; FAMILY PHYSICIAN Emergency Medicine
DX: K40.90 Unilateral inguinal hernia, without obstruction or gangrene, not specified as recurrent (principal)
CPT/HCPCS: 49650; C1781